=== PATIENT | male | born 1935 | race Caucasian/White ===

== ENCOUNTER 2022-01-28 12:23 | Outpatient (CLI) | payer MEDICARE, SELFPAY | END 2022-01-28 12:24 | disposition home or self-care (01) | LOC: AMB 02-04 10:37 | PROVIDERS: PCP Internal Medicine; Visit Provider Emergency Medicine Emergency Medical Services | DX: S09.90XA Unspecified injury of head, initial encounter (principal); W00.9XXA Unspecified fall due to ice and snow, initial encounter; Y92.414 Local residential or business street as the place of occurrence of the external cause | CPT/HCPCS: A0425; A0427 ==

== ENCOUNTER 2022-01-28 12:47 | Emergency (ER) | payer MEDICARE, SELFPAY ==
--- NOTE | 2022-01-28 12:51 | CRLHL7_ITS ---
For Patients: As a result of the Century Cures Act, medical imaging exams and procedure reports are released immediately into your electronic medical record. You may view this report before your referring provider. If you have questions, please contact your health care provider. INDICATION: Trauma COMPARISON: There are no prior studies for comparison TECHNIQUE: CT examination of the head was performed as axial sections without intravenous contrast. Images were obtained from the vertex of the skull through the skull base. Please note that all CT scans at this facility use dose modulation, iterative reconstruction, and/or weight-based dosing when appropriate to reduce radiation dose to as low as reasonably achievable. FINDINGS: There is cortical and central atrophy. Periventricular white matter disease is noted suggesting small-vessel ischemia. There is intracranial hemorrhage. Most of this is a right frontal region subarachnoid hemorrhage. There is probably a small amount of left frontal subarachnoid hemorrhage as well in the parafalcine location. In the inferior right frontal contusion is noted with a hematoma identified measuring about 15 millimeters from axial image 19. There is developing edema in the inferior right frontal lobe. There is no shift identified. A long linear branching skull fracture is identified. It is not a basilar skull fracture. Involves the right frontal bone and extends superiorly and towards the left, crossing the coronal suture and extending to the left into the temporal bone. There is mild displacement of the fracture in the left temporal region. This is best seen on coronal image 55 were maximum step-off is about 3.5 millimeters. No definite subdural blood There is subcutaneous hematoma in several locations especially on the left. I discussed this case with Dr. Barber at 1:49 p.m. on January 28, 2022 IMPRESSION: 1. There is intracranial hemorrhage. This is primarily a right frontal subarachnoid hemorrhage though there is a small sub component in the left frontal region as well. There is also an inferior frontal intraparenchymal contusion measuring about 15 millimeters with developing edema in the inferior right frontal lobe. There is no shift. 2. Complex skull fracture extending from the right frontal bone superiorly and laterally towards the left extending in the left temporal bone. There is some displacement in the left temporal region with maximum step-off of about 3.4 millimeters. No associated subjacent subdural hematoma or contusion in the region of the maximally displaced skull fracture Please note that all CT scans at this facility use dose modulation, iterative reconstruction, and/or weight-based dosing when appropriate to reduce radiation dose to as low as reasonably achievable. Dictated by Ozzy Andres MD @ 01/28/2022 1:50:16 PM (Electronically Signed)
--- NOTE | 2022-01-28 12:51 | CRLHL7_ITS ---
For Patients: As a result of the Century Cures Act, medical imaging exams and procedure reports are released immediately into your electronic medical record. You may view this report before your referring provider. If you have questions, please contact your health care provider. INDICATION: Trauma COMPARISON: None TECHNIQUE: CT examination of the cervical spine is performed without contrast using spiral technique. Thin axial, sagittal and coronal reconstructions were made. Please note that all CT scans at this facility use dose modulation, iterative reconstruction, and/or weight-based dosing when appropriate to reduce radiation dose to as low as reasonably achievable. FINDINGS: : There is reversal of the cervical curvature which is usually due to muscle spasm, positioning or immobilization device. There are moderate to severe degenerative changes. There is no visible acute fracture, dislocation or destructive process. IMPRESSION: Reversed curvature probably due to muscle spasm. Degenerative changes. No visible acute fracture, dislocation or destructive process. Please note that all CT scans at this facility use dose modulation, iterative reconstruction, and/or weight-based dosing when appropriate to reduce radiation dose to as low as reasonably achievable. Dictated by Ozzy Andres MD @ 01/28/2022 1:52:32 PM (Electronically Signed)
--- NOTE | 2022-01-28 12:52 | ED.GENADULT ---
HPI - General Adult General Chief complaint: Fall/Minor Trauma Stated complaint: Fall Time Seen by Provider: 01/28/22 12:50 History of Present Illness HPI narrative: This 86-year-old male comes in by ambulance because a fall that occurred just prior to arrival. He states that he was out walking his dog and does not remember what happened. He fell and hit the occipital portion of his head and has some bruising and abrasions in this area. He reports some pain in this area but does not have any other report of pain. Ambulance arrived and saw him crawling on the ground some distance from where he fell. He did get up and ambulate and has no sign of neurologic deficit. He does not remember the events around the time of the fall. He arrives with normal neurologic function. He is not on any anticoagulants. Related Data Home Medications Medication Instructions Recorded Confirmed finasteride 5 mg tablet (Proscar) 5 mg PO QDAY 12/08/21 12/08/21 ibuprofen 200 mg capsule 200 mg PO Q6H PRN 12/08/21 12/08/21 minocycline 50 mg capsule 50 mg PO QDAY 12/08/21 12/08/21 tamsulosin 0.4 mg capsule 0.4 mg PO QDAY 12/08/21 12/08/21 vitamins A,C,P-gcxp-qsrzei 2,148 2 tab PO BID 12/08/21 12/08/21 mcg-113 mg-45 mg-17.4 mg tablet (PreserVision AREDS) Previous Rx's Medication Instructions Recorded nirmatrelvir 300 mg (150 mg 3 ea PO QAM AND QPM #30 tabs 12/08/21 x2)-ritonavir 100 mg tablet,dose pack(EUA) (Paxlovid) Allergies Allergy/AdvReac Type Severity Reaction Status Date / Time No Known Drug Allergies Allergy Verified 12/08/21 15:42 Review of Systems Status of ROS: Reports: 10 or more systems reviewed and unremarkable except as noted in History and below Narrative: Constitutional: No fevers, no weight gain or loss. Eyes: No discharge. No vision changes. HENT: No congestion, no sore throat, no ear pain. Pain with bruising and swelling in the left occipital region due to a fall. Cardiovascular: No chest pain, no palpitations. Respiratory: No shortness of breath, no wheezes, no cough. Gastrointestinal: No abdominal pain, no vomiting, no diarrhea. Genitourinary: No dysuria, no hematuria. Musculoskeletal: Normal range of motion. Skin: No rashes, no pruritis. Neurological: No dizziness, weakness, sensory change, speech change. Loss of consciousness related to the recent fall. Endo/Heme/Allergies: No bruising or bleeding. No polydipsia. Pysch: no suicidality, no anxiety, no insomnia. All other systems reviewed and are negative. [facility] Medical History (Updated 01/28/22 @ 14:12 by Rell Dalton MD) Benign prostatic hyperplasia Macular degeneration Skin cancer Surgical History (Updated 01/28/22 @ 13:32 by Marybeth Avalos RN) History of cataract surgery Social History Smoking Status: Former smoker What tobacco products do you use: cigarettes Smoking quit date/years: >15 years ago Do you use any of these nicotine containing products: None Second hand tobacco smoke exposure: No How often do you have a drink containing alcohol: 4 or more times a week How many standard drinks containing alcohol do you have on a typical day: 1 or 2 How often do you have six or more drinks on one occasion: Daily or almost daily AUDIT-C Alcohol total score: 8 Non-prescribed substance use: denies use service: No Exam Narrative: Exam Narrative: Primary Survey: Vital Signs are within normal limits. Airway: Open. Breathing: Easy. Circulation: no obvious bleeding; normal capillary refill. Disability: GCS is 15. Normal pupillary response and motor movements. No facial asymmetry. Tongue is midline. Box Toe Cementer strength is equal bilaterally. No pronator drift. He is able to raise each leg from the bed. Secondary Survey: Exposure: Head: Swelling in the left occipital region of his head. There is small area of erythema but no laceration. Neck: He arrives in a C-collar. No midline tenderness when palpating along the spine. C-collar was removed after C-spine clearance. Chest: Non tender. No external signs of trauma. Abdomen: Non tender. No rebound tenderness. Normal bowel sounds. Pelvis/Genitals: No tenderness to A/P and lateral stress. No blood at the urethral meatus. Extremities: Atraumatic. Back: No midline tenderness. Primary and Secondary surveys are completed. The patient's GCS is 15. Const: Vital Signs, click to edit/add: Vital Signs - 24 hr 01/28/22 13:18 Temperature 96.3 F L Pulse Rate [Left A pical] 64 Respiratory Rate 16 Blood Pressure [Ri ght Upper Arm] 165/80 H Pulse Oximetry 97 Oxygen Delivery Me thod Room Air Course Vital Signs Vital signs: Initial Vital Signs Temperature 96.3 F L 01/28/22 13:18 Temperature Source Temporal Artery Scan 01/28/22 13:18 Pulse Rate 64 01/28/22 13:18 Pulse Rhythm 01/28/22 13:18 Pulse Strength 3+ Normal 01/28/22 13:18 Respiratory Rate 16 01/28/22 13:18 Blood Pressure 165/80 H 01/28/22 13:18 Blood Pressure Mean 108 01/28/22 13:18 Blood Pressure Position Sitting 01/28/22 13:18 Pulse Oximetry 97 01/28/22 13:18 Oxygen Delivery Method 01/28/22 13:18 Vital Signs Temperature 96.3 F L 01/28/22 13:18 Pulse Rate 64 01/28/22 13:18 Respiratory Rate 16 01/28/22 13:18 Blood Pressure 165/80 H 01/28/22 13:18 Pulse Oximetry 97 01/28/22 13:18 Oxygen Delivery Method 01/28/22 13:18 Temperature 96.3 F L 01/28/22 13:18 Pulse Rate 64 01/28/22 13:18 Respiratory Rate 16 01/28/22 13:18 Blood Pressure 165/80 H 01/28/22 13:18 Pulse Oximetry 97 01/28/22 13:18 Oxygen Delivery Method 01/28/22 13:18 Medical Decision Making MDM Narrative Medical decision making narrative: This patient comes in with a injury to his head with loss of consciousness. I was able to evaluate him rather immediately upon arrival. He did not have much complaint except for some tenderness in the occipital region of his head. His neurologic exam is normal. CT imaging of the head and C-spine are acquired. C-spine shows no new findings by my review. CT scan of the head does show a small subarachnoid hemorrhage and a right frontal parenchymal hemorrhage. There is also a skull fracture in the right frontal displaced 3-4 mm, but not depressed. I reexamined the patient at 1330 any continues to have normal neurologic function and is in no acute distress. I spoke with an ER physician at [facility], Dr. Otto, who agreed to his transfer there for further evaluation and treatment. CT images are pushed there. At 1:45 p.m. Arrangements are made for transfer and ambulance is contacted. He received an IV dose of Keppra 500 mg. Time spent in critical care of this patient was 30 minutes. Lab Data Labs: Lab Results 01/28/22 Range/Units 13:44 WBC 7.29 (4.50-11.00) K/uL RBC 4.51 (4.30-5.90) m/uL Hgb 14.3 (13.5-17.5) gm/dL Hct 43.2 (37.0-53.0) % MCV 96 (80-100) fL MCH 32 (26-34) pg MCHC 33 (32-36) gm/dL RDW Coeff of Chas 13.0 (11.5-15.5) % Plt Count 170 (140-440) K/uL Neut % (Auto) 78.9 H (42.0-72.0) % Lymph % (Auto) 15.1 L (20-44) % Norman % (Auto) 4.8 (0.0-11.0) % Eos % (Auto) 0.8 (0.0-7.0) % Baso % (Auto) 0.3 (0.0-3.0) % Neut # (Auto) 5.80 (1.7-7.0) K/uL Lymph # (Auto) 1.10 (0.90-2.90) K/uL Norman # (Auto) 0.30 (0.00-0.90) K/UL Eos # (Auto) 0.06 (0.00-0.50) K/uL Baso # (Auto) 0.02 (0.00-0.30) K/uL Abs Immat Gran (auto) 0.01 (0.00-0.30) K/uL Imaging Data CT scan - head: Radiologist's impression: 1. There is intracranial hemorrhage. This is primarily a right frontal subarachnoid hemorrhage though there is a small sub component in the left frontal region as well. There is also an inferior frontal intraparenchymal contusion measuring about 15 millimeters with developing edema in the inferior right frontal lobe. There is no shift. 2. Complex skull fracture extending from the right frontal bone superiorly and laterally towards the left extending in the left temporal bone. There is some displacement in the left temporal region with maximum step-off of about 3.4 millimeters. No associated subjacent subdural hematoma or contusion in the region of the maximally displaced skull fracture CT Cervical Spine: Radiologist's impression: Reversed curvature probably due to muscle spasm. Degenerative changes. No visible acute fracture, dislocation or destructive process. Critical Care Time Critical Care Time Critical Care Time: Yes Attestation: The patient required my highest level preparedness to intervene emergently and I personally spent this critical care time directly and personally managing the patient. This critical care time included: Obtaining a history; Examining the patient; Pulse oximetry; Ordering and reviewing of studies; Arranging urgent treatment with development of a management plan; Evaluation of patients response to treatment; Frequent reassessment discussions with other providers. This critical care time was performed to assess and manage the high probability of imminent life-threatening deterioration that could result in multiorgan failure. It was exclusive of separate billable procedures and treating other patients and teaching time. Total Critical Care Time in Minutes: 30 Discharge Plan Discharge Clinical Impression: Subarachnoid hemorrhage, Closed skull fracture Prescriptions: No Action Paxlovid (EUA) 300 mg (150 mg x 2)-100 mg tablets,dose pack 3 ea PO QAM AND QPM Qty: 30 0RF PreserVision AREDS 2,148 mcg-113 mg-45 mg-17.4mg tablet 2 tab PO BID Rx Instructions: administer with AM and PM meals finasteride [Proscar] 5 mg tablet 5 mg PO QDAY minocycline 50 mg capsule 50 mg PO QDAY tamsulosin 0.4 mg capsule 0.4 mg PO QDAY ibuprofen 200 mg capsule 200 mg PO Q6H PRN Follow Up/Referrals: Juan Antonio Garber MD [Primary Care Provider] - Stand Alone Forms: Expanite Info Instructions
[2022-01-28 13:05] VITALS: BP 141/78; PULSE 68; RESP 16; O2SAT 100
[2022-01-28 13:10] VITALS: BP 136/99; PULSE 63; RESP 16; O2SAT 100
[2022-01-28 13:18] VITALS: BP 165/80; PULSE 64; RESP 16; TEMP 35.7; O2SAT 97
[2022-01-28 13:20] VITALS: BP 135/87; PULSE 60; RESP 14; O2SAT 100
[2022-01-28 13:54] LABS: Basophils Absolute Auto 0.02 K/uL (0.00-0.30); Basophils Percent Auto 0.3 % (0.0-3.0); Eosinophils Absolute Auto 0.06 K/uL (0.00-0.50); Eosinophils Percent Auto 0.8 % (0.0-7.0); Hematocrit 43.2 % (37.0-53.0); Hemoglobin* 14.3 gm/dL (13.5-17.5); Immature Granulocytes Abs Auto 0.01 K/uL (0.00-0.30); Lymphocytes Percent Auto 15.1 % (20-44); Mean Corpuscular HGB Conc 33 gm/dL (32-36); Mean Corpuscular Hemoglobin 32 pg (26-34); Mean Corpuscular Volume 96 fL (80-100); Monocytes Percent Auto 4.8 % (0.0-11.0); Neutrophils Percent Auto 78.9 % (42.0-72.0); Platelet Count* 170 K/uL (140-440); Red Blood Count 4.51 m/uL (4.30-5.90); White Blood Count* 7.29 K/uL (4.50-11.00)
[2022-01-28 13:55] VITALS: BP 121/65; PULSE 63; RESP 14; O2SAT 99
--- NOTE | 2022-01-28 13:55 | ED.NURSE ---
Face sheet faxed to [facility] per request, CT images pushed to [facility] per request.
[2022-01-28 13:57] LABS: Slide Review Reflex No
[2022-01-28 14:00] VITALS: BP 130/101; PULSE 57; RESP 14; O2SAT 99
--- NOTE | 2022-01-28 14:02 | ED.NURSE ---
Report to GAURANG Da Silva at [facility].
[2022-01-28 14:29] LABS: Chloride* 104 mmol/L (96-114); Potassium* 3.9 mmol/L (3.6-5.1); Sodium* 136 mmol/L (135-149)
[2022-01-28 14:30] LABS: Prothrombin Time 13.6 Seconds
[2022-01-28 14:31] LABS: Creatinine* 0.8 mg/dL (0.5-1.5); Estimated Glomerular Filt Rate 87 ml/min
[2022-01-28 14:32] LABS: Blood Urea Nitrogen* 25 mg/dL (7-30); Calcium* 8.6 mg/dL (8.4-10.6)
[2022-01-28 15:51] LABS: Carbon Dioxide* 28 mmol/L (20-32); Glucose* 112 mg/dL (60-115)
== END 2022-01-28 15:03 | disposition home or self-care (01) ==
PROVIDERS: Emergency Provider Emergency Medicine Emergency Medical Services; PCP Internal Medicine
DX: S06.6X0A Traumatic subarachnoid hemorrhage without loss of consciousness, initial encounter (principal); S02.109A Fracture of base of skull, unspecified side, initial encounter for closed fracture; W19.XXXA Unspecified fall, initial encounter
CPT/HCPCS: 36415; 70450; 72125; 80048; 85025; 85610; 93005; 96365; 99285; 99291; G0390; J1953

== ENCOUNTER 2022-01-28 14:15 | Outpatient (CLI) | payer MEDICARE, SELFPAY | END 2022-01-28 14:16 | disposition home or self-care (01) | LOC: AMB 02-04 11:26 | PROVIDERS: PCP Internal Medicine; Visit Provider Emergency Medicine Emergency Medical Services | DX: S06.5XAS Traumatic subdural hemorrhage with loss of consciousness status unknown, sequela (principal); S02.0XXS Fracture of vault of skull, sequela | CPT/HCPCS: A0425; A0426 ==

== ENCOUNTER 2022-03-03 09:00 | Outpatient (RCR) | payer MEDICARE, SELFPAY | END 2022-04-30 08:37 | disposition home or self-care (01) | PROVIDERS: PCP Internal Medicine; Visit Provider General Practice | DX: S06.9X1S Unspecified intracranial injury with loss of consciousness of 30 minutes or less, sequela (principal); R42 Dizziness and giddiness; Z51.89 Encounter for other specified aftercare | CPT/HCPCS: 97110; 97116; 97162 ==

== ENCOUNTER 2022-03-04 08:18 | Outpatient (CLI) | payer MEDICARE, SELFPAY ==
--- OUTSIDE RECORDS SUMMARY | 2022-03-04 08:23 | XMS_ITS | Encounter Summary ---
:1935 Author Organization [facility] Address [address] [place] [phone] Phone Care Team Providers Name Role Phone Juan Antonio Garber MD Primary Care Provider Encounter Details Date Type Department Care Team Description 02/11/2022 Travel Social History Tobacco Use Types Packs/Day Years Used Date Smoking Tobacco: Former Cigarettes Quit : 1969 Smokeless Tobacco: Never Alcohol Use Standard Drinks/Week Comments Not Currently 0 (1 standard drink = 0.6 oz pure alcoho l) Sex Assigned at Date Recorded Not on file COVID-19 Exposure Response Date Recorded In the last 10 days, have you been in contact with No / Unsu re 02/11/2022 2:03 PM CDT someone who was confirmed or suspected to have Coronavirus/COVID-19? 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
--- OUTSIDE RECORDS SUMMARY | 2022-03-04 08:23 | XMS_ITS | Encounter Summary ---
:1935 Author Organization [facility] Address [address] [place] [phone] Phone Care Team Providers Name Role Phone Juan Antonio Garber MD Primary Care Provider Encounter Details Date Type Department Care Team Description 01/28/2022 Orders Only Unspecified Departme nt Unknown, Provider [place] Social History Tobacco Use Types Packs/Day Years Used Date Smoking Tobacco: Unknown Sex Assigned at Date Recorded Not on file COVID-19 Exposure Response Date Recorded In the last 10 days, have you been in contact with No / Unsu re 02/11/2022 2:03 PM CDT someone who was confirmed or suspected to have Coronavirus/COVID-19? documented as of this encounter Plan of Treatment Not on filedocumented as of this encounter Procedures Procedure Name Priority Date/Time Associated Diagnosis Comme nts TELEMETRY STRIPS 01/28/2022 9:23 PM Resul ts for this CDT procedure are i n the results section. documented in this encounter Results TELEMETRY STRIPS (01/28/2022 9:23 PM CDT) Narrative 01/28/2022 9:23 PM CDT This result has an attachment that is no t available. Ordered by an unspecified provider. 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
--- OUTSIDE RECORDS SUMMARY | 2022-03-04 08:23 | XMS_ITS | Encounter Summary ---
:1935 Author Organization [facility] Address [address] [place] [phone] Phone Care Team Providers Name Role Phone Juan Antonio Garber MD Primary Care Provider Reason for Referral Consult/Test/Treat (Routine) - New Request Specialty Diagnoses / Procedures Referred By Contact Refer red To Contact Physical Therapy / Diagnoses Traumatic brain injury, with loss of consciousness of 30 minutes or less, initial encounter () SAH (subarachnoid hemorrhage) () Jose Guadalupe Feliciano, PATIENT CHOICE PHYSICAL THERAPY DO [address] [place] [address] Referral ID Status Reason Start Date Expiration Date Visits V isits Requested Authorized [id number] New Request 02/11/2022 02/11/2023 1 1 Reason for Visit Reason Comments Referral TBI Consult/Test/Treat (Urgent) - Closed Specialty Diagnoses / Procedures Referred By Contact Refer red To Contact Physical Medicine and Diagnoses SAH (subarachnoid hemorrhage) () Edwin Churchill MD [facility] / PHYSICAL [address] [facility] [address] MEDICINE AND REHAB [employer], [place] [phone] Fax: Referral ID Status Reason Start Date Expiration Date Visits Requ ested Visits Authorized [id number] Closed 01/29/2022 01/29/2023 1 1 Encounter Details Date Type Department Care Team Description 02/11/2022 Office Visit Clinic & Specialty Edwin Churchill MD [address] [facility] [address] [place], [place] [phone] Traumatic brain injury, with loss of con sciousness of 30 minutes or less, initial encounter () (Primary Dx); [facility] Jose Guadalupe Diehl DO [address] [place] [address] SAH (subarachnoid hemorrhage) (); [address] Dizziness; [place], [place] [address] Balance problem due to vesti bular dysfunction, unspecified laterality; [phone] Acute post-trau matic headache, not intractable Social History Tobacco Use Types Packs/Day Years Used Date Smoking Tobacco: Former Cigarettes Quit : 1969 Smokeless Tobacco: Never Tobacco Cessation: Counseling Given: Not Answered Alcohol Use Standard Drinks/Week Comments Not Currently 0 (1 standard drink = 0.6 oz pure alcoho l) Sex Assigned at Date Recorded Not on file COVID-19 Exposure Response Date Recorded In the last 10 days, have you been in contact with No / Unsu re 02/11/2022 2:03 PM CDT someone who was confirmed or suspected to have Coronavirus/COVID-19? documented as of this encounter Last Filed Vital Signs Vital Sign Reading Time Taken Comments Blood Pressure 146/77 02/11/2022 2:14 PM CDT Pulse 81 02/11/2022 2:14 PM CDT Temperature - - Respiratory Rate - - Oxygen Saturation - - Inhaled Oxygen Concentration - - Weight 81 kg (178 lb 9.6 oz) 02/11/2022 2:14 PM CDT Height - - Body Mass Index 23.57 01/28/2022 9:00 PM CDT documented in this encounter Patient Instructions Patient InstructionsAmeya Loomis MD - 02/11/2022 2:30 PM CDT You were seen in TBI Clinic for evaluation of recent traumatic brain injury. The following recommendations were made for you today: Physical therapy referral to address balance and return to activity exercises. Ok to begin light aerobic activities such as walking. Ok to fly to [place] Follow up as needed if symptoms do not improve or worsen. documented in this encounter Progress Notes Jose Guadalupe Diehl, DO - 02/11/2022 2:30 PM CDT [facility] Carter Oropeza : 1935 Sex: male Medical Decision Making: ASSESSMENT: Carter Oropeza is 86 y.o. 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 PLAN: Mild complicated Traumatic brain injury. The pathophysiology and prognosis of the traumatic brain injury were explained to patient. Patient was educated regarding energy conservation, recurrent risk oftraumatic brain injury and return to baseline activities. Problems with mental and physical exertionwere explained. The patient was told to stay away from alcohol and other illicit drugs. Posttraumatic headache (Episodic tension subtype): Recommend continuing Tylenol PRN and weaning as able. Currently taking 1000 mg QHS and 825 mg Q 06:00AM, Provided education regarding risk of rebound headache with [id number] medication. 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 Activity restrictions: Patient was concerned about flying as a passenger with commercial air. No pneumocephalus noted on initial head CT. Safe to travel via air discussed symptoms to monitor for while in flight. 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 Patient was educated on to gradual increase in activities as tolerated. PT forhome exercise program and activity guidance. Return to clinic: No follow up scheduled. Return to clinic in approximately 3 months or after completion of PT if symptoms do not improve or worsen. After discussion with the patient the above treatment plan w as decided through shared clinical decision making. Reason for visit This patient is seen at the request of Dr. Churchill for evaluation for traumatic brain injury. HISTORY OF PRESENT ILLNESS: This is an initial clinic visit for this 86 y.o. male with a past medical history of BPH and leiomyosarcoma status postresection for evaluation of their traumatic brain injury. The patient chart and care everywhere were reviewed including ED visit notes from 01/28/2022, admission records and discharge summary on 01/30/2022. Carter Oropeza sustained a head injury on 01/28/2022 after slipping on ice. He was walking his dogalone but neighbors witnessed his fall and noted a brief loss of consciousness. Patient does not remember the fall but does remember walking into neighbors apartment to call and ambulance. He was brought to the ED in [place] where a Head CT was obtained noting ICH and he was transported to [facility].he was noted to have a GCS of 15 and exam findings showed a left posterior scalp abrasion and contusion. Repeat head CT obtained noted a mild interval increase in bifrontal and right temporal subarachnoid hemorrhage and right frontal contusion. Stable thin epidural hematoma at the vertex. No mass effect. Additionally he was found to have stable alignment of bilateral frontal bone and left parietal fracture, with mild comminution disc and depression of the left parietal fragments. Follow up Head CT was stable. 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 He was admitted for further observation and started on a 7-day course of Keppra for seizure prophylaxis. He was seen by OT on 01/29 and noted to have a MoCA of 26/30 with good insight into his current condition. He was discharged on 01/30 to home with his spouse. Today the patient was interviewed with his Jaimie. He overall reports doing very well since his hospitalization. He continues to have periodic dizziness and unsteady gait that worsens with dramatic postural changes. He is currently using his 's cane to assist with ambulation and notes he leans towards the left while walking and brushing his teeth. From a mobility standpoint he has not pushed himself given fear of falling again. denies any cognitive changes, he denies any incontinence. He additionally notes ongoing headaches. Worse at night while lying flat. Localized to front of headin band like distribution with periodic muscle twitches of the facial muscle. Overall this is improving with time out from the injury, he is currently taking Tylenol 1000 mg QHS and waking up at 6:00in anticipation of headache and taking 825 mg and falling back asleep. He reliably states that this medication regimen is mostly due to headache anticipation rather than perception of actual pain during this time. Mechanism of Injury: fall Injury Date: 01/28/2022 LOC: Yes - Duration: brief Amnestic to Events: Yes Evaluated at: [facility] GCS at ED/Admission: 15 Brought in by: ambulance Imaging: CT of head - Yes - See below Other injuries: Bilateral frontal fracture extending to L parietal bone Hospital Course Consults: OT, PT, OVEN OPERATOR AUTOMATIC, Neurosurgery, Orthopaedics Date of discharge: 01/30/2022 Discharged to: Home Neurobehavioral Symptom Inventory Please rate the following symptoms with regard to how much they have disturbed you IN THE LAST 2 WEEKS The purpose of this is to track symptoms over time, please do not attempt to score. 0 = Rarely if ever present; not a problem at all 1 = Mild - Occasionally present, but it does not disrupt my activities; I can usually continue what I'm doing; doesn't really concern me. 2 = Moderate - Often present, occasionally disrupts my activities; I can usually continue what I'm doing with some effort; I feel somewhat concerned 3 = Severe - Frequently present and disrupts activities; I can only do things that are fairly simpleor take little effort; I feel I need help. 4 = Very Severe - almost always present and I have been unable to perform at work, school or home due to this problem; I probably cannot function without help. Preexisting = this problem was present before my injury on Symptoms Pre-existing 0 Not at all 1 Mild 2 Moderate 3 Severe 4 Very severe Feeling Dizzy [] [] [x] [] [] [] Loss of balance [] [] [x] [] [] [] Poor coordination, clumsy [] [x] [] [] [] [] Headaches [] [x] [] [] [] [] Nausea [] [x] [] [] [] [] Vision problems, blurring, trouble seeing [] [x] [] [] [] [] Sensitivity to light [x] [] [] [] [] [] Hearing difficulty [] [x] [] [] [] [] Sensitivity to noise [] [x] [] [] [] [] Numbness or tingling on parts of my body [] [x] [] [] [] [] Change in taste and/or smell [] [x] [] [] [] [] Loss of appetite or increased appetite [] [x] [] [] [] [] Poor concentration, can't pay attention, easily distracted [] [] [x] [] [] [] Forgetfulness, can't remember things [] [x] [] [] [] [] Difficulty making decisions [] [x] [] [] [] [] Slowed thinking, difficulty getting organized, can't finish things [] [x] [] [] [] [] Fatigue, loss of energy, getting tired easily [] [] [x] [] [] [] Difficulty falling or staying asleep [] [x] [] [] [] [] Feeling anxious or tense [] [x] [] [] [] [] Feeling depressed or sad [] [x] [] [] [] [] Irritability, easily annoyed [] [x] [] [] [] [] Poor frustration tolerance, feeling easily overwhelmed by things [] [x] [] [] [] [] (adapted from CARLA Limon: J Head Tr Rehabil 1995; 10(3):1-17) PAST MEDICAL HISTORY: Reviewed active problem list and medication list for accuracy, see below. Patient Active Problem List Diagnosis SAH (subarachnoid hemorrhage) () TBI (traumatic brain injury) Current Outpatient Medications Medication Sig Dispense Refill acetaminophen 325 mg oral tablet Take 3 tablets (975 mg) by mouth every 6 hours as needed for Mild Pain. 1000 tablet 0 senna (SENOKOT) 8.6 mg oral tablet Take 1 tablet (8.6 mg) by mouth twice daily. 30 tablet 0 minocycline (MINOCIN) 50 mg oral capsule Take 1 capsule (50 mg) by mouth daily. tamsulosin (FLOMAX) 0.4 mg oral capsule Take 1 capsule (0.4 mg) by mouth daily. finasteride (PROSCAR) 5 mg oral TABS Take 1 tablet (5 mg) by mouth daily. No current facility-administered medications for this visit. ALLERGIES: Allergies Allergen Reactions Caffeine Other (see comments) Jittery FAMILY HISTORY: Assessed and noncontributory. SOCIAL HISTORY: The patient is their own decision maker. 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 Supportive: Yes Exercise: Walks Driving: Not since accident Smoking: No EtOH: Not , since injury Drugs: None MPAI4- Current Encounter No data found in the last 1 encounters. REVIEW OF SYSTEMS: A total of 10 systems is reviewed. Pertinent positives are in the history of present illness. All other systems are otherwise negative. PHYSICAL EXAMINATION: BP 146/77 Pulse 81 Wt 81 kg (178 lb 9.6 oz) BMI 23.57 kg/m?? General: The patient is a well-nourished, well groomed male who appears stated age. HEAD: Normocephalic, atraumatic EYE: -Appearance: Sclera nonicteric, PERRLA -Pupil position: No tropia/phoria -Eye movements: EOMI, no resting nystagmus VOMS: -Smooth Pursuits (horizontal and vertical x2 each) normal, loss of smooth pursuits noted when standing -Saccades (horizontal and vertical x10 each) normal -Convergence (repeat x3) normal (greater than >5 cm abnormal) - Vestibular-Ocular Reflex: --rVOR (Head Impulse, horizontal and Vertical): normal --tVOR (Head Heave): normal ENT: no rhinorrhea, MMM Lung: breathing unlabored in room air Skin: skin turgor is normal. Extremity: no edema noted in extremities. Neurologic: -Cognition: Overall, fund of knowledge, insight, and judgment are adequate. Speech is fluent and articulate. Cognitive screen: SLUMS Is the patient alert?: Yes Level of education: High School Education What day of the week is it?: 1 What is the year?: 1 What state are we in?: 1 How much did you spend?: 1 How much do you have left?: 2 Name as many animals as you can in one minute.: 3 (15+ animals) What were the five objects I asked you to remember?: 4 Series of numbers backwards (87):: 0 Series of numbers backwards (649):: 1 Series of numbers backwards (6437):: 1 Hour markers okay?: 2 Time correct?: 2 [address] an X in the triangle.: 1 Which of the figures is the largest?: 1 What was the female's name?: 2 What work did she do?: 2 When did she go back to work?: 2 What state did she live in?: 2 Total Score:: 29 [facility] Mental Status Examination ([facility]) High School Education / Less than High School Education 27-30 Normal 25-30 21-26 Mild Neurocognitive Disorder 20-24 1-20 Dementia 1-19 -Cranial nerves: Smell intact to coffee; II, III, IV, as above; V1-3 intact to light touch bilaterally, face appears symmetrical, hearing intact to voice, palate elevates symmetrically, shoulder shrug equal, no tongue deviation upon protrusion -MS: All limbs move greater than antigravity -Sens: No complaints of dysesthesia or paresthesia -Coor: No dysmetria noted. Positive Romberg -Gait: leftward tilt with decreased arm swing to maintain balance that worsens with walking on toes,walking on heels, and heel-to-toe Musculoskeletal: range of motion of cervical spine within normal limits. No Tenderness in suboccipital muscles, cervical paraspinal muscles, temporalis muscles, frontalis muscles, TMJ area. Tinel's sign for Occipital neuralgia was negative. Imaging CT HEAD 01/28/2022 Impression: 1. Mild interval increase in bifrontal and right temporal subarachnoid hemorrhage and right frontal contusion. Stable thin epidural hematoma at the vertex. No mass effect. 2. Stable alignment of bilateral frontal bone and left parietal fracture, with mild comminution disc and depression of the left parietal fragments. 3.Fracture crosses the midline along the superior sagittal sinus. Consider follow-up CT venogram. CT HEAD 01/29/2022 Impression: The head CT has not substantially changed. Small epidural hemorrhage of the paramedian vertex, small amount of subarachnoid change in the supratentorial compartment, and hemorrhagic contusion in the right supraorbital frontal lobe. Stable skull fracture. CT VENOGRAM 01/29/2022 Impression: 1. Stable size of the vertex epidural hematoma. 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 2. Stable bifrontal convexity subarachnoid hemorrhage and right frontal hemorrhagic contusion. 3. Stable calvarial fracture. 4. No evidence of venous sinus thrombosis. * I have seen and discussed the patient with my attending Dr. Diehl, who agrees with the above assessment and plan. Ameya Loomis MD PGY-4 Physical Medicine and Rehabilitation FACULTY NOTE I saw and evaluated the patient on 02/11/2022. I discussed with the resident and agree with the resident???s findings and plan documented in the resident???s note from above. Any revisions by me are documented. Jose Guadalupe Diehl DO, 02/12/2022 7:42 AM documented in this encounter Plan of Treatment Scheduled Referrals Name Type Priority Associated Diagnoses Order S chedule REFERRAL TO PHYSICAL Referral Routine Traumatic brain inju ry, Ordered: 02/11/2022 THERAPY with loss of consciousness of 30 minutes or less, initial encounte r () SAH (subarachnoid hemorrhage) () Dizziness documented as of this encounter Visit Diagnoses Diagnosis Traumatic brain injury, with loss of con sciousness of 30 minutes or less, initial encounter () - Primary SAH (subarachnoid hemorrhage) () Subarachnoid hemorrhage Dizziness Dizziness and giddiness Balance problem due to vestibular dysfun ction, unspecified laterality Acute post-traumatic headache, not intra ctable Acute post-traumatic headache documented in this encounter Care Teams Copy Supervisor Relationship Specialty Start Date End Date Juan Antonio Garber MD PCP - General Internal Medicine 01/28/[address] [place] [phone] documented as of this encounter
--- OUTSIDE RECORDS SUMMARY | 2022-03-04 08:23 | XMS_ITS | Encounter Summary ---
:1935 Author Organization [facility] Address [address] [place] [phone] Phone Care Team Providers Name Role Phone Juan Antonio Garber MD Primary Care Provider Encounter Details Date Type Department Care Team Description 01/29/2022 Orders Only Unspecified Departme nt Unknown, Provider [...] Date/Time Associated Diagnosis Comme nts TELEMETRY STRIPS 01/29/2022 2:00 AM Resul ts for this CDT procedure are i n the results section. documented in this encounter Results TELEMETRY STRIPS (01/29/2022 2:00 AM CDT) Narrative 01/29/2022 2:00 AM CDT This result has an attachment that is no t available. Ordered by an unspecified provider. Provider Unknown ECHO documented in this encounter Visit Diagnoses Not on filedocumented in this encounter Care Teams Cordage Sales Representative Relationship Specialty Start Date End Date Juan Antonio Garber MD PCP - General Internal Medicine 01/28/[address] [place] [phone] documented as of this encounter
--- OUTSIDE RECORDS SUMMARY | 2022-03-04 08:23 | XMS_ITS | Encounter Summary ---
:1935 Author Organization [facility] Address [address] [place] [phone] Phone Care Team Providers Name Role Phone [...] Associated Diagnosis Comme nts TELEMETRY STRIPS 01/29/2022 8:34 AM Resul ts for this CDT procedure are i n the results section. documented in this encounter Results TELEMETRY STRIPS (01/29/2022 8:34 AM CDT) Narrative 01/29/2022 8:34 AM CDT This result has an attachment that is no t available. Ordered by an unspecified provider. Provider Unknown ECHO documented in this encounter Visit Diagnoses Not on filedocumented in this encounter Care Teams Refining Still Operator Relationship Specialty Start Date End Date Juan Antonio Garber MD PCP - General Internal Medicine 01/28/[address] [place] [phone] documented as of this encounter
--- OUTSIDE RECORDS SUMMARY | 2022-03-04 08:23 | XMS_ITS | Encounter Summary ---
:1935 Author Organization [facility] Address [address] [place], [place] [address] [address] Phone Care Team Providers Name Role Phone Juan Antonio Garber MD Primary Care Provider Encounter Details Date Type Department Care Team Description 01/28/2022 Orders Only [facility] [place], Outside Referral of patient [facility] OUTSIDE PROVIDER (Primary Dx) [place], [place] Radiology Department [id number] [address] [facility] [address] Social History Tobacco Use Types Packs/Day Years [...] filedocumented as of this encounter Visit Diagnoses Diagnosis Referral of patient - Primary Referral of patient without examination or treatment documented in this encounter Care Teams Regional Sales Coordinator Relationship Specialty Start Date End Date Juan Antonio Garber MD PCP - General Internal Medicine 01/28/[address] [place] [phone] documented as of this encounter
--- OUTSIDE RECORDS SUMMARY | 2022-03-04 08:23 | XMS_ITS | Encounter Summary ---
:1935 Author Organization [facility] Address [address] [place] [phone] Phone Care Team Providers Name Role Phone Juan Antonio Garber MD Primary Care Provider Encounter Details Date Type Department Care Team Description 01/28/2022 Travel Social History Tobacco Use Types Packs/Day Years Used Date Smoking Tobacco: Unknown Sex Assigned at Date Recorded Not on file COVID-19 Exposure Response Date Recorded In the last 10 days, have you been in contact with No / Unsu re 01/28/2022 7:55 PM CDT someone who was confirmed or suspected to have Coronavirus/COVID-19? documented as of this encounter Plan of Treatment Not on filedocumented as of this encounter Visit Diagnoses Not on filedocumented in this encounter Care Teams Boom Man Relationship Specialty Start Date End Date Juan Antonio Garber MD PCP - General Internal Medicine 01/28/[address] [place] [address] [phone] documented as of this encounter
--- OUTSIDE RECORDS SUMMARY | 2022-03-04 08:23 | XMS_ITS | Clinical Summary ---
:1935 Author Organization [facility] Address [address] [place], [place] [address] [place] [address] Phone Care Team Providers Name Role Phone Juan Antonio Garber MD Primary Care Provider Source Comments [employer] is fully rolled out on [employer]uc[employer]. Last update 09/14/08.[facility] Allergies Active Allergy Reactions Severity Noted Date Comments Caffeine Other (see comments) 01/28/2022 Alber moralez Medications Be aware that medications may not be up to date as of this document. Always verify current medications with patient. Medication Sig Dispensed Refills Start Date End Date Status minocycline (MINOCIN) Take 1 capsule 0 Active 50 mg oral capsule (50 mg) by mouth daily. tamsulosin (FLOMAX) Take 1 capsule 0 Active 0.4 mg oral capsule (0.4 mg) by mouth daily. finasteride (PROSCAR) Take 1 tablet 0 Active 5 mg oral TABS (5 mg) by mouth daily. acetaminophen 325 mg Take 3 tablets 1000 tablet 0 01/29/2022 Active oral tablet (975 mg) by mouth every 6 hours as needed for Mild Pain. senna (SENOKOT) 8.6 Take 1 tablet 30 tablet 0 01/29/2022 Active mg oral tablet (8.6 mg) by mouth twice daily. levETIRAcetam Take 1 tablet 13 tablet 0 01/29/2022 02/05/2022 (KEPPRA) 1000 mg oral (1,000 mg) by TABSIndications: TBI mouth twice and possible seizure daily for 13 doses. 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 SAH (subarachnoid hemorrhage) 01/28/2022 Encounters Date Type Specialty Care Team Description 02/11/2022 Office Visit Traumatic Brain Edwin Churchill MD Traumatic brain injury, with loss of con sciousness of 30 minutes or less, initial encounter () (Primary Dx); Injury Puderbaugh, SAH (subarachno id hemorrhage) (); Jose Guadalupe Araujo DO Dizziness; Balance problem due to vestibular dysfunction, unspecified laterality; Acute post-trau matic headache, not intractable 02/11/2022 Travel 01/29/2022 Orders Only Unknown, Provider 01/29/2022 Orders Only Unknown, Provider 01/28/2022 - Hospital Encounter SURGERY Hudson Mehta, SAH (s ubarachnoid 01/30/2022 MD hemorrhage) () Edwin Churchill MD Stahler, Paul A, MD 01/28/2022 Orders Only Unknown, Provider 01/28/2022 Travel 01/28/2022 Orders Only RADIOLOGY Provider, Referral of jaimie chapman Outside (Primary Dx) from Last 3 Months Immunizations Name Administration Dates Next Due COVID-19 MRNA Vaccine 09/02/2021, 01/21/2021, 06/15/2020, (Pfizer/COMIRNATY) suspension 05/25/2020 Social History Tobacco Use Types Packs/Day Years Used Date Smoking Tobacco: Former Cigarettes Quit : 1970 Smokeless Tobacco: Never Tobacco Cessation: Counseling Given: [...] was confirmed or suspected to have Coronavirus/COVID-19? Last Filed Vital Signs Vital Sign Reading Time Taken Comments Blood Pressure 146/77 02/11/2022 2:14 PM CDT Pulse 81 02/11/2022 2:14 PM CDT Temperature 36.1 ??C (97 ??F) 01/30/2022 11:06 AM CDT Respiratory Rate 16 01/30/2022 11:06 AM CDT Oxygen Saturation 93% 01/30/2022 11:06 AM CDT Inhaled Oxygen Concentration - - Weight 81 kg (178 lb 9.6 oz) 02/11/2022 2:14 PM CDT Height 185.4 cm (6' 0.99) 01/28/2022 9:00 PM CDT Body Mass Index 23.57 01/28/2022 9:00 PM CDT Plan of Treatment Health Maintenance Due Date Last Done Comments Dental Oral Exam 1935 Dental Prophylaxis 1935 Dental X-Ray: Bitewings 1935 Periodontal Maintenance 08/24/1951 Medicare Annual Wellness 08/24/1955 HEALTH MAINTENANCE PROTOCOL 1956 Osteoporosis Screening 2002 (Dexa Scan) PREVENTATIVE VISIT 04/25/2008 04/25/2007, 04/21/2006, 03/25/2005 COVID-19 Vaccine (5 - 10/28/2021 09/02/2021, 01/21/2021, Booster for Pfizer series) 06/15/2020, Additiona l history exists INFLUENZA VACCINE 12/11/2021 06/07/2019, 01/07/2017, 01/03/2016, Additional history exists TD/TDAP ADULTS 04/17/2031 04/17/2021, 09/26/2010, 03/26/2004 PNEUMOCOCCAL IMMUNIZATION > Completed 10/31/2007 67 YRS HIB Aged Out No longer eligib le based on patient 's age to complete this topic HPV Aged Out No longer eligib le based on patient 's age to complete this topic Procedures Procedure Name Priority Date/Time Associated Comments Diagnosis PHOSPHORUS Routine 01/30/2022 5:33 AM Results f or this CDT procedure are i n the results section. MAGNESIUM Routine 01/30/2022 5:33 AM Results f or this CDT procedure are i n the results section. PANEL BASIC METABOLIC Routine 01/30/2022 5:33 AM Results for this (BMP) CDT procedure are i n the results section. TC LAB BLOOD DRAW BY Routine 01/30/2022 5:33 AM R esults for this VENIPUNCTURE CDT procedure are i n the results section. TELEMETRY STRIPS 01/29/2022 8:34 AM Resul ts for this CDT procedure are i n the results section. CT HEAD - Timed 01/29/2022 8:30 AM Results f or this VENOGRAM-W/IV CON CDT procedure are in the results section. TELEMETRY STRIPS 01/29/2022 2:00 AM Resul ts for this CDT procedure are i n the results section. CT HEAD NO IV CONTRAST Timed 01/29/2022 1:32 AM Results for this CDT procedure are i n the results section. TELEMETRY STRIPS 01/28/2022 9:23 PM Resul ts for this CDT procedure are i n the results section. CT HEAD NO IV CONTRAST Timed 01/28/2022 7:37 PM Results for this CDT procedure are i n the results section. PC TROPONIN Timed 01/28/2022 7:30 PM Results f or this QUANTITATIVE CDT procedure are i n the results section. COVID-19 SURVEILLANCE STAT 01/28/2022 7:30 PM Results for this CDT procedure are i n the results section. XR TIB FIB RIGHT 2 V Routine 01/28/2022 7:16 PM R esults for this AP + LAT* CDT procedure are i n the results section. ED EKG (12-LEAD) Routine 01/28/2022 4:53 PM Resul ts for this CDT procedure are i n the results section. XR PELVIS AP* Routine 01/28/2022 4:09 PM Results for this CDT procedure are i n the results section. XR CHEST 2 VIEWS PA + Routine 01/28/2022 4:09 PM Results for this LAT* CDT procedure are i n the results section. ED US FAST-TRAUMA STAT 01/28/2022 3:49 PM Resu lts for this CDT procedure are i n the results section. CT OUTSIDE READ SPINE Routine 01/28/2022 3:48 PM Results for this CERVICAL/NECK CDT procedure are in the results section. CT OUTSIDE READ Routine 01/28/2022 3:48 PM Result s for this HEAD/FACIAL BONES CDT procedure are in the results section. PC TROPONIN STAT 01/28/2022 3:47 PM Results f or this QUANTITATIVE CDT procedure are i n the results section. PRECAUTIONARY TUBE STAT 01/28/2022 3:47 PM Res ults for this CDT procedure are i n the results section. PC LAB CBC W/DIFF & STAT 01/28/2022 3:47 PM Re sults for this PLT CDT procedure are i n the results section. PC ELECTROLYTES PANEL STAT 01/28/2022 3:47 PM Results for this CDT procedure are i n the results section. EXTRA TUBE - SST Routine 01/28/2022 3:36 PM Resul ts for this CDT procedure are i n the results section. EXTRA TUBE - LIGHT Routine 01/28/2022 3:36 PM Res ults for this GREEN CDT procedure are i n the results section. EXTRA TUBE - DARK Routine 01/28/2022 3:36 PM Resu lts for this GREEN CDT procedure are i n the results section. TC LAB BLOOD DRAW BY Routine 01/28/2022 3:36 PM R esults for this VENIPUNCTURE CDT procedure are i n the results section. from Last 3 Months Results PHOSPHORUS (01/30/2022 5:33 AM CDT) athologist Signature Phosphorus 2.6 2.5 - 4.5 [facility] mg/dL Specimen Anatomical Collection Method Collection Time Receive d Time (Source) Location / / Volume Laterality Blood 01/30/2022 5:33 AM 5:57 CDT AM CDT Chucho Britt APRN, CNP LABORATORY Performing Organization Address City/State/ZIP Code Phon e Number [facility] [place] [address] (ABNORMAL) PANEL BASIC METABOLIC (BMP) (01/30/2022 5:33 AM CDT) athologist Signature Sodium 136 135 - 148 [facility] mEq/L Potassium 3.9 3.5 - 5.3 [facility] mEq/L Chloride 106 92 - 108 [facility] mEq/L CO2 24 22 - 30 [facility] mEq/L Glucose 122 (H) 70 - 100 [facility] mg/dL BUN 16 8 - 23 [facility] mg/dL Creatinine 0.97 0.70 - 1.25 [facility] mg/dL Calcium 8.2 (L) 8.8 - 10.2 [facility] mg/dL AnGap 6 (L) 8 - 16 [facility] mEq/L eGFR, High 83 >=60 [facility] ml/min/1.73 m2 Comment: Calculated using CKD-EPI equati on eGFR, Low 71 >=60 ml/min/1.73m2 [facility] Comment: Calculated using CKD-EPI equati on Specimen Anatomical Collection Method Collection Time Receive d Time (Source) Location / / Volume Laterality Blood 01/30/2022 5:33 AM 2 5:57 CDT AM CDT Chucho Britt APRN, CNP LABORATORY Performing Organization Address [facility]/ZIP Code Phon e Number [facility] [place] [address] MAGNESIUM (01/30/2022 5:33 AM CDT) athologist Signature Magnesium 2.1 1.6 - 2.4 [facility] mg/dL Specimen Anatomical Collection Method Collection Time Receive d Time (Source) Location / / Volume Laterality Blood 01/30/2022 5:33 AM 2 5:57 CDT AM CDT Chucho Britt APRN, CNP LABORATORY Performing Organization Address City/[facility] Code Phon e Number [facility] [place] [address] (ABNORMAL) CBC WITH PLATELET (01/30/2022 5:33 AM CDT) athologist Signature WBC 7.41 4.00 - [facility] 10.00 k/cmm RBC 4.05 (L) 4.60 - 6.00 [facility] m/cmm Hgb 13.1 13.1 - 17.5 [facility] g/dL Hematocrit 38.1 (L) 40.0 - 51.0 [facility] % MCV 94.1 80.0 - [facility] 100.0 fL MCH 32.3 (H) 25.0 - 32.0 [facility] pg MCHC 34.4 31.0 - 36.0 [facility] g/dL RDW 12.9 11.5 - 14.5 [facility] % Plt 158 150 - 400 [facility] k/cmm MPV 10.4 6.5 - 12.5 [facility] fL Specimen Anatomical Collection Method Collection Time Receive d Time (Source) Location / / Volume Laterality Blood 01/30/2022 5:33 AM 2 5:58 CDT AM CDT Chucho A Lorenza STARKS CNP LABORATORY Performing Organization Address City/State/ZIP Code Phon e Number [facility] [place] [address] [place] [address] TELEMETRY STRIPS (01/29/2022 8:34 AM CDT)Only the most recent of3 resultswithin the time period is included. Narrative 01/29/2022 8:34 AM CDT This result has an attachment that is no t available. Ordered by an unspecified provider. Provider Unknown ECHO CT HEAD - VENOGRAM-W/IV CON (01/29/2022 8:30 AM CDT) Anatomical Region Laterality Modality Skull Computed Tomography Specimen (Source) Anatomical Collection Method Collection Time Re ceived Time Location / / Volume Laterality 01/29/2022 8:24 AM CDT Impressions 01/29/2022 12:01 PM CDT Impression: 1. Stable size of the vertex epidural he matoma. 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 2. Stable bifrontal convexity subarachno id hemorrhage and right frontal hemorrhagic contusion. 3. Stable calvarial fracture. 4. No evidence of venous sinus thrombosi s. I have personally reviewed the image(s) and initial interpretation, and I agree with the findings as documented by the resident/fellow. Reading Radiologist: Edwin Mosher Resident: Anna Beckford Narrative 01/29/2022 12:[address] Venogram of the Head with intravenous contrast Image Postprocessing by the Radiologist Indication: ??Head trauma, intracranial venous injury suspected ??. Comparison: ??Same day CT, CT 01/28/2022 Technique: Head CT: Noncontrast thin section CT lacey ges were obtained from the skull base through the vertex and reviewed in brain, bone and subdural windows. CTV Head: Following intravenous bolus in jection of nonionic iodinated contrast medium and a delay of approximately 20-25 seconds, axial ??CT imaging with 1 mm collimation was obtained through the brain. Image data were sent to the [employer] orkstation and postprocessed by the radiologist using maximum intensity pixel (MIP), multiplanar and volume rendered 3D reconstruction programs. DOSE: ?Total DLP = 1842.7 mGy.cm. ?? Findings: On the noncontrast images of the head, t here is frontal convexity subarachnoid hemorrhage and right frontal lobe hemorrhagic contusion, overall stable from prior CT. Small vertex epidural hematoma uncha nged size from prior with mild mass effe ct along the sagittal sinus (coronal venogram image 47, series 511 image 5). The ventricles are not enlarged. Otto- white matter differentiation of both cerebral h emispheres is overall preserved. Again v isualized calvarium fracture along the frontal and left parietal bones Head CTV demonstrates focal filling defe cts along the sagittal sinus (coronal venogram images 41, 52, 60, 70, and 72, sagittal venogram images 30 and 31), favored to represent arachnoid granulations. No definite evidence of venous sinus throm bosis. No complete occlusion or definite evidence of thrombus within the major intracranial dural venous sinuses and the major superficial and deep cerebral veins. The major intracranial arteries are joshua sly patent without evidence of aneurysm or stenosis. Procedure Note Edwin Mosher MD - 01/29/2022Formattin g of this note might be different from the original. CT Venogram of the Head with intravenous contrast Image Postprocessing by the Radiologist Indication: Head trauma, intracranial ve nous injury suspected . Comparison: Same day CT, CT 01/28/2022 Technique: Head CT: Noncontrast thin section CT lacey ges were obtained from the skull base through the vertex and reviewed in brain, bone and subdural windows. CTV Head: Following intravenous bolus in jection of nonionic iodinated contrast medium and a delay of approximately 20-25 seconds, axial CT imaging with 1 mm collimation was obtained through the brain. Image data were sent to the [employer] workstation a nd postprocessed by the radiologist using maximum intensity pixel (MIP), multiplanar and volume rendered 3D reconstruction programs. DOSE: Total DLP = 1842.7 mGy.cm. Findings: On the noncontrast images of the head, t here is frontal convexity subarachnoid hemorrhage and right frontal lobe hemorrhagic contusion, overall stable from prior CT. Small vertex epidural hematoma unchanged size from prior with mild mass effect al shahzad the sagittal sinus (coronal venogram image 47, series 511 image 5). The ventricles are not enlarged. Otto-white matter differentiation of both cerebral hemispheres is overall preserved. Again visualized calvarium fr acture along the frontal and left parietal bones Head CTV demonstrates focal filling defe cts along the sagittal sinus (coronal venogram images 41, 52, 60, 70, and 72, sagittal venogram images 30 and 31), favored to represent arachnoid granulations. No definite evidence of venous sinus thrombosis. No complete occlusion or definite evidence of thrombus within the major intracranial dural venous sinuses and the major superficial and deep cerebral veins. The major intracranial arteries are joshua sly patent without evidence of aneurysm or stenosis. IMPRESSION Impression: 1. Stable size of the vertex epidural he matoma. 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 2. Stable bifrontal convexity subarachno id hemorrhage and right frontal hemorrhagic contusion. 3. Stable calvarial fracture. 4. No evidence of venous sinus thrombosi s. I have personally reviewed the image(s) and initial interpretation, and I agree with the findings as documented by the resident/fellow. Reading Radiologist: Edwin Mosher Resident: Anna Beckford Edwin Churchill MD CT NEURO CT HEAD NO IV CONTRAST (01/29/2022 1:32 AM CDT)Only the most recent of2 results within the time period is included. Anatomical Region Laterality Modality Skull Computed Tomography Specimen (Source) Anatomical Collection Method Collection Time Re ceived Time Location / / Volume Laterality 01/29/2022 2:36 AM CDT Impressions 01/29/2022 12:10 PM CDT Impression: The head CT has not substantially change d. Small epidural hemorrhage of the paramed yonas vertex, small amount of subarachnoid change in the supratentorial compartment, and hemorrhagic contusion in the right supraorbital frontal lobe. Stable skull fracture. I have personally reviewed the image(s) and initial interpretation, and I agree with the findings as documented by the resident/fellow. Reading Radiologist: Piyush Santoyo Resident: Andrew Jerry 01/29/2022 12:10 PM CDT Exam: Head CT without contrast, 01/29/2022 Indication: Interval follow-up. Comparison: Head CT examinations from (most recently from approximately 6 hours earlier). Technique: Thin-section CT images throug h the brain were obtained from the base of the skull through the vertex without intravenous contrast, reconstructed in axial, coronal, and sagittal planes, and reviewed in brain, bone and subdural windows. Radiation dose: Total DLP = 1173.6 mGy*c m. ?? Findings: Stable appearance of subarachn oid hemorrhage about the anterior frontal lobes and anterior right temporal lobe. Similar appearance of the hemorrhagic contusion in the supraorbital right fronta l lobe with associated edema. Similar vo lume and maximal thickness of epidural hemorrhage superficial to the middle third of the superior sagittal sinus; this measures 5 mm in thickness. Small amount of layering hemorrhage in the occipital ho rns of the ventricles. There is suggestion of a small hygroma along the right frontal convexity, stable to perhaps slightly increased in size. No midline shift. S table size of the ventricles; no hydroce phalus. The basal cisterns are patent. No acute appearing loss of the otto-white differentiation. Fracture of the right frontal bone exten ding into the left parietal bone; there is mild comminution of the left parietal bone. Small chronic deformity of the right medial orbital wall. Unchanged right m axillary sinus opacification. Mastoid ai r cells are clear. Soft tissue swelling of the scalp overlying the fracture. Procedure Note Piyush Santoyo, DO - 01/29/2022Form atting of this note might be different from the original. Exam: Head CT without contrast, 01/30/20 Indication: Interval follow-up. Comparison: Head CT examinations from (most recently from approximately 6 hours earlier). Technique: Thin-section CT images throug h the brain were obtained from the base of the skull through the vertex without intravenous contrast, reconstructed in axial, coronal, and sagittal planes, and reviewed in brain, bone and subdural windows. Radiation dose: Total DLP = 1173.6 mGy*c m. Findings: Stable appearance of subarachn oid hemorrhage about the anterior frontal lobes and anterior right temporal lobe. Similar appearance of the hemorrhagic contusion in the supraorbital right frontal lobe with associated edema. Similar volume and max imal thickness of epidural hemorrhage superficial to the middle third of the superior sagittal sinus; this measures 5 mm in thickness. Small amount of layering hemorrhage in the occipital horns of the ventricles. T here is suggestion of a small hygroma along the right frontal convexity, stable to perhaps slightly increased in size. No midline shift. Stable size of the ventricles; no hydrocephalus. The basal cisterns are pa tent. No acute appearing loss of the otto-white differentiation. Fracture of the right frontal bone exten ding into the left parietal bone; there is mild comminution of the left parietal bone. Small chronic deformity of the right medial orbital wall. Unchanged right maxillary sinus opacification. Mastoid air cells a re clear. Soft tissue swelling of the scalp overlying the fracture. IMPRESSION Impression: The head CT has not substantially change d. Small epidural hemorrhage of the paramed yonas vertex, small amount of subarachnoid change in the supratentorial compartment, and hemorrhagic contusion in the right supraorbital frontal lobe. Stable skull fracture. I have personally reviewed the image(s) and initial interpretation, and I agree with the findings as documented by the resident/fellow. Reading Radiologist: Piyush Santoyo Reading Resident: Andrew Jerry Edwin Churchill MD CT NEURO COVID-19 SURVEILLANCE (01/28/2022 7:30 PM CDT) [facility] Signature COVID-19 Not Detected Not Detected [facility] Specimen (Source) Anatomical Collection Method Collection Time Re ceived Time Location / / Volume Laterality Nasopharyngeal Swab 01/28/2022 7:30 01/28 PM CDT 7:34 PM CDT Narrative [facility] - 01/28/2022 8:16 PM CDT Preferred specimen is Nasopharyngeal swab Is the patient a healthcare employee: No Is the patient a [employer] ([facility]) Employee : No Rudy Villa MD LABORATORY Performing Organization Address [facility]/ZIP Code Phon e Number [facility] [place] [address] TROP 4H (01/28/2022 7:30 PM CDT) athologist Signature 4H Trop 4 <=34 ng/L [facility] 4H Delta na Not Significant [facility] Comment: Unable to calculate delta, miss ing timed collection. Specimen Anatomical Collection Method Collection Time Receive d Time (Source) Location / / Volume Laterality Blood 01/28/2022 7:30 PM 7:41 CDT PM CDT Rudy Villa MD LABORATORY Performing Organization Address [facility] Phon e Number [facility] [place] [address] XR TIB FIB RIGHT 2 V AP + LAT* (01/28/2022 7:16 PM CDT) Anatomical Region Laterality Modality Lower Extremity Computed Radiography Specimen (Source) Anatomical Collection Method Collection Time Re ceived Time Location / / Volume Laterality 01/28/2022 7:17 PM CDT Impressions 01/28/2022 7:17 PM CDT Impression: No fracture. Reading Radiologist: Nino Giraldo Narrative 01/28/2022 7:17 PM CDT Indication: ??pain with palpation after fall ?? Findings: The alignment is normal. No fr acture or dislocation is seen. No other abnormality is noted. Procedure Note Nino Giraldo MD - 01/28/2022Formatti ng of this note might be different from the original. Indication: pain with palpation after fa ll Findings: The alignment is normal. No fr acture or dislocation is seen. No other abnormality is noted. IMPRESSION Impression: No fracture. Reading Radiologist: Nino Giraldo Hudson Mehta MD X-RAY ED EKG (12-LEAD) (01/28/2022 4:53 PM CDT) Specimen (Source) Anatomical Collection Method Collection Time Re ceived Time Location / / Volume Laterality 01/28/2022 4:53 PM CDT Impressions [facility] EKG ORDERS - 01/28/2022 4:53 P M CDT SINUS RHYTHMNo Previous ECGs Available RIGHT BUNDLE BRANCH BLOCK ??[120+ ms QRS DURATION, UPRIGHT V1, 40+ ms S IN I/aVL/V4/V5/V6]No Previous ECGs Available LEFT POSTERIOR FASCICULAR BLOCK ??[QRS A XIS > 109, INFERIOR Q]No Previous ECGs Available ABNORMAL ECGNo Previous ECGs Available Summary: No Previous ECGs AvailableNo Pr evious ECGs Available P-R Interval 201 ms QRS Interval 158 ms QT Interval 414 ms QTC Interval 425 ms P Koppel -18 QRS Koppel 138 T Wave Koppel -13 Procedure Note Aarti Garay MD - 01/28/2022Format ting of this note might be different from the original. IMPRESSION SINUS RHYTHMNo Previous ECGs Available RIGHT BUNDLE BRANCH BLOCK [120+ ms QRS D URATION, UPRIGHT V1, 40+ ms S IN I/aVL/V4/V5/V6]No Previous ECGs Available LEFT POSTERIOR FASCICULAR BLOCK [QRS AXI S > 109, INFERIOR Q]No Previous ECGs Available ABNORMAL ECGNo Previous ECGs Available Summary: No Previous ECGs AvailableNo Pr evious ECGs Available P-R Interval 201 ms QRS Interval 158 ms QT Interval 414 ms QTC Interval 425 ms P Koppel -18 QRS Koppel 138 T Wave Koppel -13 Hudson Mehta MD EKG Performing Organization Address City/State/ZIP Code Phon e Number [facility] EKG ORDERS XR PELVIS AP* (01/28/2022 4:09 PM CDT) Anatomical Region Laterality Modality Pelvis Computed Radiography Specimen (Source) Anatomical Collection Method Collection Time Re ceived Time Location / / Volume Laterality 01/28/2022 4:20 PM CDT Impressions 01/28/2022 4:20 PM CDT IMPRESSION: Osteoarthritis. No acute findings. Reading Radiologist: Nino Giraldo Narrative 01/28/2022 4:20 PM CDT Indication: ??fall on ice ?? COMPARISON: None FINDINGS: Degenerative changes are prese nt at both hip joints. There is no fracture or dislocation. No other abnormality is seen. Procedure Note Nino Giraldo MD - 01/28/2022Formatti ng of this note might be different from the original. Indication: fall on ice COMPARISON: None FINDINGS: Degenerative changes are prese nt at both hip joints. There is no fracture or dislocation. No other abnormality is seen. IMPRESSION IMPRESSION: Osteoarthritis. No acute fin dings. Reading Radiologist: Nino Giraldo Rudy Villa MD X-RAY XR CHEST 2 VIEWS PA + LAT* (01/28/2022 4:09 PM CDT) Anatomical Region Laterality Modality Chest Computed Radiography Specimen (Source) Anatomical Collection Method Collection Time Re ceived Time Location / / Volume Laterality 01/28/2022 4:20 PM CDT Impressions 01/28/2022 4:20 PM CDT Impression: ??Clear chest. Reading Radiologist: Nino Giraldo Narrative 01/28/2022 4:20 PM CDT Indication: ??fall head bleed ?? COMPARISON: None Findings: ??The heart and pulmonary vasc ulature are normal. ??The lungs are clear. ??There is no pleural effusion or pneumothorax. ??No other abnormality is seen. Procedure Note Nino Giraldo MD - 01/28/2022Formatti ng of this note might be different from the original. Indication: fall head bleed COMPARISON: None Findings: The heart and pulmonary vascul ature are normal. The lungs are clear. There is no pleural effusion or pneumothorax. No other abnormality is seen. IMPRESSION Impression: Clear chest. Reading Radiologist: Nino Giraldo Rudy Villa MD X-RAY ED US FAST-TRAUMA (01/28/2022 3:49 PM CDT) Anatomical Region Laterality Modality Ultrasound Specimen (Source) Anatomical Location Collection Method / Collectio n Time Received Time / Laterality Volume Narrative 01/28/2022 5:45 PM CDT ED Trauma eFAST Ultrasound Indications: Blunt Trauma, Suspicion of Abdomen Fluid/Blood, Suspicion of Pneumothorax/Hemothorax, and Other gener al symptoms and signs Window: Cardiac Window, Heptorenal Windo w, Perisplenic Window, Pelvic Window, and Thoracic Window Findings: No Pericardial Effusion identi fied, No Free Intraperitoneal Fluid identified, No Pleural Effusion id entified, and Lung Sliding Present Bilaterally. Incidental left renal cyst Impression: No Pericardial Effusion iden tified, No Free Intraperitoneal Fluid identified, No Pleural Effusion id entified, and No Pneumothorax Identified; incidental left renal cyst Maricel Aguilar MD, 01/28/2022 5:29 PM ED Attending Ultrasound Note: I have personally reviewed the image(s) and initial interpretation, and I agree with the findings as documented. Hudson Mehta MD, 01/28/2022 5:45 PM Rudy Villa MD ED ULT CT OUTSIDE READ SPINE CERVICAL/NECK (01/28/2022 3:48 PM CDT) Anatomical Region Laterality Modality Cervical Spine Computed Tomography Specimen (Source) Anatomical Collection Method Collection Time Re ceived Time Location / / Volume Laterality 01/28/2022 4:00 PM CDT Impressions 01/28/2022 6:05 PM CDT Impression: ?? 1. No acute fracture or traumatic sublux ation of the cervical vertebra. 2. Multilevel cervical spondylosis . The re is severe neural foraminal stenosis on the right at C3-4. There is also moderate neural foraminal stenosis on the left at C5-6 and C3-4. I have personally reviewed the image(s) and initial interpretation, and I agree with the findings as documented by the resident/fellow. Reading Radiologist: Edwin Mosher Resident: Jayce Hobson 01/28/2022 6:05 PM CDT Indication: ??Patient transferred from [facility] due to Trauma. ??No initial report accompanied the patient and/or Dr. ??RUDY VILLA requested an interpretation by me. Technique: ??CT scan of the cervical spi ne done on 01/28/2022 without IV contrast. ??3 mm axial, sagittal and coronal reconstructions reviewed in soft tissue and bone windows, per the local institution' s scanning protocols, which may differ f rom the [facility] trauma protocols. Findings: ?? The lateral masses of C1 appear normally aligned on C2. Reversal of the lordotic curvature centered at C6. Subtle degenerative grade 1 anterolisthesis C4-5. No acute fracture or traumatic subluxation jung spected. Multilevel degenerative endplat e changes most apparent at C5-6 and C6-7 where there is moderate loss of disc height. Prevertebral soft tissues are unremarkable. Moderate atlantodental arthropat hy. Multilevel anterior osteophytic spur ring most apparent at C5-6. Chronic calcification in the posterior paraspinal soft tissues about C4 and C5. Multilevel facet arthropathy and uncinat e hypertrophy. Notable level at C3-4 on the right where there are advanced changes with severe right foraminal stenosis and moderate left foraminal stenosis. Ther e is also moderate uncinate hypertrophy on the left at C5-6 causing moderate neural foraminal stenosis. This is partially disc osteophyte complex effacing the anterolateral left aspect of the thecal sac at C5-6 and likely causing mild spinal canal stenosis. Facet arthropathy at the C3-4 level on the right also narrows the transverse foramen. Procedure Note Edwin Mosher MD - 01/28/2022Formattin g of this note might be different from the original. Indication: Patient transferred from [facility] due to Trauma. No initial report accompanied the patient and/or . RUDY VILLA requested an interpretation by me. Technique: CT scan of the cervical spine done on 01/28/2022 without IV contrast. 3 mm axial, sagittal and coronal reconstructions reviewed in soft tissue and bone windows, per the local institution's scanning protocols, which may differ from the [facility] trauma protocols. Findings: The lateral masses of C1 appear normally aligned on C2. Reversal of the lordotic curvature centered at C6. Subtle degenerative grade 1 anterolisthesis C4-5. No acute fracture or traumatic subluxation suspected. Multilevel degenerative endpl ate changes most apparent at C5-6 and C6-7 where there is moderate loss of disc height. Prevertebral soft tissues are unremarkable. Moderate atlantodental arthropathy. Multilevel anterior osteophytic spurring most appar ent at C5-6. Chronic calcification in the posterior paraspinal soft tissues about C4 and C5. Multilevel facet arthropathy and uncinat e hypertrophy. Notable level at C3-4 on the right where there are advanced changes with severe right foraminal stenosis and moderate left foraminal stenosis. There is also moderate uncinate hypertrophy on the lef t at C5-6 causing moderate neural foraminal stenosis. This is partially disc osteophyte complex effacing the anterolateral left aspect of the thecal sac at C5-6 and likely causing mild spinal canal stenosis. Facet arthro adal at the C3-4 level on the right also narrows the transverse foramen. IMPRESSION Impression: 1. No acute fracture or traumatic sublux ation of the cervical vertebra. 2. Multilevel cervical spondylosis . The re is severe neural foraminal stenosis on the right at C3-4. There is also moderate neural foraminal stenosis on the left at C5-6 and C3-4. I have personally reviewed the image(s) and initial interpretation, and I agree with the findings as documented by the resident/fellow. Reading Radiologist: Edwin Mosher Resident: Jayce Hobson Rudy Villa MD CT NEURO CT OUTSIDE READ HEAD/FACIAL BONES (01/28/2022 3:48 PM CDT) Anatomical Region Laterality Modality Skull Computed Tomography Specimen (Source) Anatomical Collection Method Collection Time Re ceived Time Location / / Volume Laterality 01/28/2022 3:53 PM CDT Impressions 01/28/2022 5:56 PM CDT Impression: ?? 1. Right frontal subarachnoid hemorrhage and probable contusion. 2. Bilateral frontal fracture extending to the left parietal bone. Small associated epidural hemorrhage without mass effect. 3. Fracture crosses the superior sagitta l sinus. Recommend follow-up CT venogram to evaluate for possible venous thrombosis. I have personally reviewed the image(s) and initial interpretation, and I agree with the findings as documented by the resident/fellow. Reading Radiologist: Edwin Mosher Resident: Anna Beckford 01/28/2022 5:56 PM CDT Indication: ??Patient transferred from [facility] due to Trauma. ??No initial report accompanied the patient and/or Dr. ??RUDY VILLA requested an interpretation by me. Technique: ??CT scan of the head done on 01/28/2022 without IV contrast. ??3 mm axial and coronal reconstructions reviewed in soft tissue and bone windows, per the local institution's scanning protocols , which may differ from the [facility] trauma protocols. Findings: ??Subarachnoid hemorrhage parviz g the anterior right frontal lobe convexity. Hemorrhagic contusion along the right orbital portion of the frontal lobe with mild surrounding edema, better visuali zed on coronal image 29. Additional area of trace subarachnoid hemorrhage along the left frontal pole (series 2 image 40). Thin epidural hemorrhage at the vertex measuring 3 mm thickness (coronal image 44). No substantial mass effect or midli ne shift. Mild enlargement of ventricles and sulci secondary to parenchymal volume loss. Mild periventricular hypoattenuation, nonspecific but likely secondary to chronic small vessel ischemic disease. The basal cisterns are clear. Calvarium fracture along the right front al bone with fracture line extending through the coronal suture into the left parietal bone. No additional calvarium, skull base or facial fractures. Bilateral ps eudophakia. Complete opacification of th e right maxillary sinus. The remainder of the paranasal sinuses are clear. Clear mastoid air cells. Procedure Note Edwin Mosher MD - 01/28/2022Formattin g of this note might be different from the original. Indication: Patient transferred from [facility] due to Trauma. No initial report accompanied the patient and/or Dr. RUDY VILLA requested an interpretation by me. Technique: CT scan of the head done on 1 without IV contrast. 3 mm axial and coronal reconstructions reviewed in soft tissue and bone windows, per the local institution's scanning protocols, which may differ from the [facility] trauma protocols. Findings: Subarachnoid hemorrhage along the anterior right frontal lobe convexity. Hemorrhagic contusion along the right orbital portion of the frontal lobe with mild surrounding edema, better visualized on coronal image 29. Additional area of trace subar achnoid hemorrhage along the left frontal pole (series 2 image 40). Thin epidural hemorrhage at the vertex measuring 3 mm thickness (coronal image 44). No substantial mass effect or midline shift. Mild enlargement of ventr icles and sulci secondary to parenchymal volume loss. Mild periventricular hypoattenuation, nonspecific but likely secondary to chronic small vessel ischemic disease. The basal cisterns are clear. Calvarium fracture along the right front al bone with fracture line extending through the coronal suture into the left parietal bone. No additional calvarium, skull base or facial fractures. Bilateral pseudophakia. Complete opacification of the right maxillary sinus. The remainder of the paranasal sinuses are clear. Clear mastoid air cells. IMPRESSION Impression: 1. Right frontal subarachnoid hemorrhage and probable contusion. 2. Bilateral frontal fracture extending to the left parietal bone. Small associated epidural hemorrhage without mass effect. 3. Fracture crosses the superior sagitta l sinus. Recommend follow-up CT venogram to evaluate for possible venous thrombosis. I have personally reviewed the image(s) and initial interpretation, and I agree with the findings as documented by the resident/fellow. Reading Radiologist: Edwin Mosher Resident: Anna Beckford Rudy Villa MD CT NEURO HS TROPONIN (01/28/2022 3:47 PM CDT) athologist Signature HS Troponin I <4 <=34 ng/L [facility] Specimen Anatomical Collection Method Collection Time Receive d Time (Source) Location / / Volume Laterality Blood 01/28/2022 3:47 PM 2 4:22 CDT PM CDT Narrative [facility] - 01/28/2022 4:51 PM CDT If ordering as an add-on lab, you must c all the lab. Rudy Villa MD LABORATORY Performing Organization Address City/State/ZIP Code Phon e Number [facility] [place] [address] (ABNORMAL) ED CHEMISTRY LABS(NA,K,CL,CO2,GLU,CREAT,CA-IONIZED,ANION GAP) (01/28/2022 3:47 PM CDT) Analysis Performed At Patho logist Time Signature Sodium 136 135 - 148 [facility] mEq/L Chloride 110 (H) 92 - 108 [facility] mEq/L AnGap 6 (L) 8 - 16 [facility] mEq/L Glucose 105 (H) 70 - 100 [facility] mg/dL ICA, Actual 3.61 (L) 4.40 - [facility] 5.20 mg/dL ICA, pH 3.95 (L) 4.40 - [facility] Corrected 5.20 mg/dL Creatinine 0.88 0.70 - [facility] 1.25 mg/dL BICARB 20 (L) 22 - 26 [facility] mEq/L eGFR, High 91 >=60 [facility] ml/min/1.7 3m2 Comment: Calculated using CKD-EPI equati on eGFR, Low 79 >=60 ml/min/1.73m2 [facility] Comment: Calculated using CKD-EPI equati on Potassium 4.0 3.5 - 5.3 mEq/L [facility] Specimen Anatomical Collection Method Collection Time Receive d Time (Source) Location / / Volume Laterality Blood 01/28/2022 3:47 PM 3:57 CDT PM CDT Rudy Villa MD LABORATORY Performing Organization Address City/State/ZIP Code Phon e Number [facility] [place], [place] [id number] [place] [address] (ABNORMAL) CBC WITH PLTS/AUTO DIFF (01/28/2022 3:47 PM CDT) Analysis Performed At Patho logist Time Signature WBC 7.96 4.00 - [facility] 10.00 k/cmm RBC 4.28 (L) 4.60 - [facility] 6.00 m/cmm Hgb 13.6 13.1 - [facility] 17.5 g/dL Hematocrit 41.0 40.0 - [facility] 51.0 % MCV 95.8 80.0 - [facility] 100.0 fL MCH 31.8 25.0 - [facility] 32.0 pg MCHC 33.2 31.0 - [facility] 36.0 g/dL RDW 13.1 11.5 - [facility] 14.5 % Plt 169 150 - 400 [facility] k/cmm MPV 10.1 6.5 - 12.5 [facility] fL Automated Abs 6.58 (H) 1.70 - [facility] Neutrophil 6.50 k/cmm Comment: Preliminary ANC, Final Result t o Follow Abs Immature Granulocyte 0.03 0.00 - 0.09 k/cmm [facility] Comment: The Immature Granulocyte Absolu te count contains metamyelocytes and myelocytes. Abs Neutrophil 6.58 (H) 1.70 - 6.50 k/cmm [facility] LA B Abs Lymphocyte 0.95 0.80 - 4.00 k/cmm [facility] LA B Abs Monocyte 0.35 0.20 - 1.00 k/cmm [facility] Abs Eosinophil 0.03 0.00 - 0.60 k/cmm [facility] LA B Abs Basophil 0.02 0.00 - 0.20 k/cmm [facility] Specimen Anatomical Collection Method Collection Time Receive d Time (Source) Location / / Volume Laterality Blood 01/28/2022 3:47 PM 2 4:22 CDT PM CDT Rudy Villa MD LABORATORY Performing Organization Address City/[facility] Phon e Number [facility] [place] [address] PRECAUTIONARY TUBE (01/28/2022 3:47 PM CDT) Patholo gist Method Time Signature Prec Tube Precautionary [facility] Blood Bank Specimen Received. Specimen Anatomical Collection Method Collection Time Receive d Time (Source) Location / / Volume Laterality Blood 01/28/2022 3:47 PM 2 3:57 CDT PM CDT Rudy Villa MD LAB TRANSFUSION SERVICES Performing Organization Address [facility]/ZIP Code Phon e Number [facility] [place] [address] EXTRA TUBE - DARK GREEN (01/28/2022 3:36 PM CDT) P athologist Signature DARK GREEN TUBE Stored [facility] Comment: Dark Green tubes ([place] Hepar in) are stored in the lab for 1 day from the collection date. Specimen Anatomical Collection Method Collection Time Receive d Time (Source) Location / / Volume Laterality Blood 01/28/2022 3:36 PM 2 3:58 CDT PM CDT Narrative [facility] - 01/28/2022 3:58 PM CDT Ordered by [id number] Provider Unknown LABORATORY Performing Organization Address City/[facility]/ZIP Code Phon e Number [facility] [place] [address] EXTRA TUBE - LIGHT GREEN (01/28/2022 3:36 PM CDT) athologist Signature LIGHT GREEN Stored [facility] TUBE Comment: Green tubes ([place] Heparin) a re stored in the lab for 3 days from the collection date. Specimen Anatomical Collection Method Collection Time Receive d Time (Source) Location / / Volume Laterality Blood 01/28/2022 3:36 PM 2 3:58 CDT PM CDT Narrative [facility] - 01/28/2022 3:58 PM CDT Ordered by [id number] Provider Unknown LABORATORY Performing Organization Address City/[facility]/ZIP Code Phon e Number [facility] [place] [address] EXTRA TUBE - BLUE (01/28/2022 3:36 PM CDT) athologist Signature BLUE TUBE [facility] Comment: Blue top(Sodium citrate) tubes are kept for 3 days from the collection date. Specimen Anatomical Collection Method Collection Time Receive d Time (Source) Location / / Volume Laterality Blood 01/28/2022 3:36 PM 2 3:58 CDT PM CDT Narrative [facility] - 01/28/2022 3:58 PM CDT Ordered by ~[id number] Provider Unknown LABORATORY Performing Organization Address City/[facility]/ZIP Code Phon e Number [facility] [place] [address] EXTRA TUBE - SST (01/28/2022 3:36 PM CDT) athologist Signature SST TUBE Stored [facility] Comment: SST tubes (Serum Separator) are stored in the lab for 3 days from the collection date. Specimen Anatomical Collection Method Collection Time Receive d Time (Source) Location / / Volume Laterality Blood 01/28/2022 3:36 PM 2 3:58 CDT PM CDT Narrative [facility] - 01/28/2022 3:58 PM CDT Ordered by ~[id number] Provider Unknown LABORATORY Performing Organization Address City/State/ZIP Code Phon e Number [facility] [place] [address] from Last 3 Months Insurance Payer Benefit Plan Subscriber ID Effective Dates Phone Address Type / Group [employer] [id number] 2019-Presen [phone] [address] Medicare SENIORS t 0 [facility] ([place]IC[place] [address] ADVANTAGE) [phone] (Home) [place] [id number] Advance Directives For more information, please contact: [phone] Latest Code Status on File Code Status Date Activated Date Inactivated Comments Full Code 01/28/2022 8:52 PM 01/30/2022 5:33 PM Question Answer Comments Does the Patient have preferences regarding life sustaining Yes measures (these options only apply when the patient has a pulse): Patient will accept intubation for respiratory deterioration : Unaddressed Patient will accept BiPAP for respiratory deterioration: Camila ddressed Patient will accept vasopressors for hypotension: Unaddresse d Patient will accept cardioversion for unstable rhythm: Unadd ressed Discussed Code Status With Whom? 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 [place] [id number]
--- OUTSIDE RECORDS SUMMARY | 2022-03-04 08:23 | XMS_ITS | Encounter Summary ---
:1935 Author Organization [facility] Address [address] [place] [phone] Phone Care Team Providers Name Role Phone Juan Antonio Garber MD Primary Care Provider Reason for Referral Consult/Test/Treat (Urgent) - Closed Specialty Diagnoses / Procedures Referred By Contact Refer red To Contact Physical Medicine and Diagnoses SAH (subarachnoid hemorrhage) () Chucho Britt [facility] / PHYSICAL KE STARKS [address] [place] [address] MEDICINE AND REHAB [address] [place] [phone] Referral ID Status Reason Start Date Expiration Date Visits Requ ested Visits Authorized [id number] Closed 01/29/2022 01/29/2023 1 1 Consult/Test/Treat (Urgent) - Closed Specialty Diagnoses / Procedures Referred By Contact Refer red To Contact Physical Medicine and Diagnoses SAH (subarachnoid hemorrhage) () Edwin Churchill MD Csc [facility] / PHYSICAL [address] [place] [address] [place] [address] [place] [phone] Fax: Referral ID Status Reason Start Date Expiration Date Visits Requ ested Visits Authorized [id number] Closed 01/29/2022 01/29/2023 1 1 Reason for Visit Reason Comments Fall Auth/Cert (Routine) Specialty Diagnoses / Procedures Referred By Contact Refer red To Contact SURGERY Diagnoses SAH (subarachnoid hemorrhage) () Hudson Mehta MD [address] [facility] [address] [place], [place] [address] [address] [place] [address] Phone: Fax: Referral ID Status Reason Start Date Expiration Date Visits Requ ested Visits Authorized [id number] 1 1 Encounter Details Date Type Department Care Team Description 01/28/2022 - Hospital Encounter [facility] Hudson Mehta MD [address] [facility] [address]25 [place] [address] SAH (subarachnoid 01/30/2022 Surgery/Trauma/Neur Edwin Churchill MD [address] [facility] [address] [place] [address] hemorrhage) () o 4 Dony Sidhu MD [address] [facility] [address] [place] [address] 701 [facility] [address] [place] [address] Social History Tobacco Use Types Packs/Day Years Used Date Smoking Tobacco: Unknown Tobacco Cessation: Counseling Given: Not Answered Sex Assigned at Date Recorded Not on file COVID-19 Exposure Response Date Recorded In the last 10 days, have you been in contact with No / Unsu re 01/28/2022 7:55 PM CDT someone who was confirmed or suspected to have Coronavirus/COVID-19? documented as of this encounter Last Filed Vital Signs Vital Sign Reading Time Taken Comments Blood Pressure 111/53 01/30/2022 11:06 AM CDT Pulse 72 01/30/2022 11:06 AM CDT Temperature 36.1 ??C (97 ??F) 01/30/2022 11:06 AM CDT Respiratory Rate 16 01/30/2022 11:06 AM CDT Oxygen Saturation 93% 01/30/2022 11:06 AM CDT Inhaled Oxygen Concentration - - Weight 87.4 kg (192 lb 9.6 oz) 01/28/2022 9:00 PM CDT Height 185.4 cm (6' 0.99) 01/28/2022 9:00 PM CDT Body Mass Index 25.42 01/28/2022 9:00 PM CDT documented in this encounter Discharge Summaries Dony Sidhu MD - 01/30/2022 8:13 AM CDT TRAUMA DISCHARGE SUMMARY - PGY 1 Zoran Short : 1935 Sex: male Date of Admission: 01/28/2022 Date of Discharge: 01/30/2022 Disposition: Home Primary care physician: Juan Antonio Garber MD Attending Staff: Edwin Churchill MD Significant physician provider(s): Neurosurgery Allergies Allergen Reactions Caffeine Other (see comments) Jittery ADMISSION DIAGNOSIS: Right frontal subarachnoid hemorrhage Bilateral frontal fracture extending to L parietal bone Epidural hemorrhage Traumatic Brain Injury DISCHARGE DIAGNOSIS (include any new and/or incidental findings): Right frontal subarachnoid hemorrhage Bilateral frontal fracture extending to L parietal bone Epidural hemorrhage Traumatic Brain Injury Fracture crossing superior sagittal sinus Hemorrhagic contusion of orbital portion of frontal lobe Calvarium fracture along right frontal bone - extending through coronal suture into L parietal bone Incidental Findings: - Mild enlargement of ventricles and sulci secondary to parenchymal volume loss. - Mild periventricular hypoattenuation, nonspecific but likely secondary to chronic small vessel ischemic disease. - Bilateral pseudophakia. Complete opacification of the right maxillary sinus. Operations/Procedures: None HOSPITAL COURSE: Zoran Short is a 86 y.o. male with past medical history including BPH and leiomyosarcoma s/p resection who presented to [place] ED on 01/28/2022 after slipping on ice while walking his dog with trauma to his head, resulting in bilateral frontal bone fx extending to left parietal bone, epidural hemorrhage and R frontal SAH. Patient reports hitting his L posterior head with + LOC. Witnessed fall.Patient denies blood thinner use and is neurointact on exam. Two serial CTH images showed increasingbleed in SAH/epidural, and CT venogram 01/29 showed stable SAH/epidural and moderate stenosis of superior sagittal sinus without thrombosis. He has had benign neurological examinations since and is medically ready for discharge. Patient will complete 7 days of Keppra 1g BID and will follow up with TBIclinic. PENDING TESTS RESULTS: None PHYSICAL EXAMINATION: BP 126/88 (Cuff Location: Right Arm) Pulse 58 Temp 36.9 ??C (98.5 ??F) (Tympanic) Resp 16 Ht1.854 m (6' 0.99) Wt 87.4 kg (192 lb 9.6 oz) SpO2 93% BMI 25.42 kg/m?? Estimated body mass index is 25.42 kg/m?? as calculated from the following: Height as of this encounter: 1.854 m (6' 0.99). Weight as of this encounter: 87.4 kg (192 lb 9.6 oz). General: Alert, cooperative, no acute distress Neuro: Oriented, moves all extremities, strength symmetrical, no sensory deficits, cranial nerves intact Head: Normocephalic. No lesions or tenderness. Midface stable. L posterior scalp abrasion and contusion Eyes: Sclera white, no discharge, EOM Intact, PERRL Ears: External ears normal. No Drainage. Nose: External nares normal. No Drainage. Neck: Supple. No midline tenderness. Mouth: Oral mucosa pink and intact. No Lesions. No malocclusion. Cardiovascular: Rate as noted, regular rhythm, no murmur or rubs. Chest Wall: No focal tenderness to palpation, equal rate and rise. No injury, previous surgical scaron R upper chest Pulmonary: Breathing comfortably on room air, breath sounds clear/equal bilaterally GI: Soft, non-distended, non-tender Musculoskeletal: All joints with full active ROM; no deformity Extremities: Warm, distal pulses intact, no LE edema Skin: Warm and dry without ecchymoses or lesions. Global Account Executive Needed: no PLANNED DISCHARGE ORDERS: Suture/Russell: None Wound Care Plan: Location: Left occiput; Dressing: None Drains Present: None Lines: None Activity Limitations: Up Ad Nikki Anticoagulation Plan: VTE prophylaxis contraindicated Return to Work Recommendations: n/a RECOMMENDATIONS AND FOLLOWUP: General: Surgery: None Primary Care Physician: Follow up as needed Referrals: Traumatic Brain Injury: [facility] PM&R within 2 weeks READMISSION PLANNED WITHIN 30 DAYS OF DISCHARGE? No Consultants: Neurosurgery: Mariza 1g BID x7 No anticoagulants/anti-platelets DISCHARGE ORDERS CT HEAD NO IV CONTRAST Order Notes Head CT prior to TBI clinic appointment. REFERRAL TO TRAUMATIC BRAIN INJURY REFERRAL TO TRAUMATIC BRAIN INJURY Why you were at the hospital: Order Notes You were in the hospital to have a condition after trauma to the head treated. When should I be concerned? Order Notes Go to the Emergency Department or call 911 IF: -- you have worsening unsteadiness on feet, chest pain, shortness of breath, dizziness, or severe headache -- you have pain that is not controlled by medicine, rest, elevation, or ice -- you have redness, swelling, or severe pain in one or both of your legs -- you feel you are getting worse or having an increase in problems Clinic hours (08:00 AM -05:00 PM): Call the Neuro surgery clinic Clinic at [phone] After hours or on Holidays: Call the [facility] decay control operator . Ask the decay control operator to page the Neuro Resident contracts analyst. IF: -- you have worsening unsteadiness on feet, chest pain, shortness of breath, dizziness, or severe headache -- you have pain that is not controlled by medicine, rest, elevation, or ice -- you have redness, swelling, or severe pain in one or both of your legs -- you feel you are getting worse or having an increase in problems Please keep the appointments that have already been made. Order Notes -- Please keep the appointments that have already been made. Please contact your primary care provider as needed. Order Notes Please contact your primary care provider as needed. Up as tolerated activity level. Order Notes UP TOLERATED -- Rest is an important part of healing. Save your energy by spreading out activities that make you tired. Rest as needed. -- Slowly increase your level of activity. Put ice on Order Notes -- Use ice to decrease pain or swelling: Wrap an ice pack or bag of frozen peas in a cloth (thin cloth if there is a heavy bandage, towel if no bandage). Place this over the area for 10-20 minutes at a time. Do this as needed. You may shower Order Notes -- You may shower. Fall Safety Order Notes - If prescribed, use your cane, walker, or crutches as directed. - Consider carrying a phone (cordless or cellular) with you at all times in case of an emergency - Reduce your chance of falling in your home by: -- removing throw rugs -- using a night light -- clearing the path from your bed to the bathroom. Regular diet Order Notes -- Eat a wide variety of foods, including fruits and vegetables, dairy, grains and meats. Take your medicine and plan ahead for refills Order Notes - It is important that you take the medicines on your list. Work with your health care provider or pharmacist if you have questions about your medicine. - Plan ahead and use the Refill Line so that you don't run out of your medicine. It may take time toreview your chart and get the medicine ordered. Acetaminophen (Tylenol) Safety Order Notes -- Read all labels for prescription and Afpf-rce-bywgnmt medicines. Ask the pharmacist if your prescription pain medicine contains acetaminophen. -- Do not take more than one medicine that contains acetaminophen at a time. -- Do not take more of an acetaminophen-containing medicine than directed by your provider. Adults should not take more than 2 tablets at a time and no more than 3000 mg in a 24 hour period. For children, see label or package information or ask a pharmacist, and do not give more than 5 doses in 24 hours. -- Do not drink alcohol when taking medicines that contain acetaminophen. -- Stop taking your medication and seek medical help immediately if you: ---- Think you have taken more acetaminophen than directed ---- Have an allergic reaction such as swelling of the face, mouth, and throat, difficulty breathing, itching, or rash Information about medicines that were stopped or changed Order Notes Reasons medications were stopped or changed: Keppra- Please take medication as ordered until gone. Medication List START taking these medications acetaminophen 325 mg tablet Take 3 tablets (975 mg) by mouth every 6 hours as needed for Mild Pain. levETIRAcetam 1000 mg Tabs Commonly known as: KEPPRA Take 1 tablet (1,000 mg) by mouth twice daily for 13 doses. sennosides 8.6 mg Tabs Commonly known as: SENOKOT Take 1 tablet (8.6 mg) by mouth twice daily. CONTINUE taking these medications finasteride 5 mg Tabs Commonly known as: PROSCAR minocycline 50 mg Capsule Commonly known as: MINOCIN tamsulosin 0.4 mg Capsule Commonly known as: FLOMAX STOP taking these medications ibuprofen 200 mg Tabs Commonly known as: MOTRIN;ADVIL Where to Get Your Medications These medications were sent to [facility] Discharge Pharmacy - [place] [address] Hours: 02/11 acetaminophen 325 mg tablet levETIRAcetam 1000 mg Tabs sennosides 8.6 mg Tabs Discussed diagnosis and treatment plan with the patient. Patient verbalized understanding of condition and treatment plan. Audie Cassidy MD 01/30/2022 08:48 FACULTY WITH RESIDENT: I saw and evaluated the patient on the date of the resident's note. I discussed with the resident and agree with the resident's findings and plan documented in the resident's note. Any revisions by me are documented. Dony Sidhu MD, 01/31/2022 8:37 AM documented in this encounter Discharge Instructions Discharge Instr - Physical TherapyCodi Delacruz, PT - 01/30/2022 11:17 AM CDT Zoran and family: Daily walking is your best exercise after your fall and head injury. See example walking program below. I've also attached pictures of some standing exercises too for bad weather days. For walking safety outdoors: Have someone with you at all times to start Use a walking stick or trekking poles for gait stability Practice things you did before with family by your side: crossing streets, walking your dog, doing some easy/short hiking as well For neck pain/stiffness: You can use ice packs or heating pad--whatever seems to help your symptoms the most. Your Walking Program Experts recommend walking briskly on most days. Aim for a total of 210 or more minutes a week (30 minutes per day, 7 days a week). Walking programs can help you reach this goal by gradually increasing the frequency and time you walk. Try this walking program: First Week Walk daily. Walk for 5 minutes each time. Walk 3-4 times a day. Second Week Walk daily. Walk for 10 minutes each time. Walk 3-4 times a day. Third Week Walk daily. Walk for 13 minutes each time. Walk 2-3 times a day Fourth Week Walk daily. Walk for 15 minutes each time. Walk 2-3 times a day. Fifth Week Walk daily. Walk for 20 minutes each time. Walk 1-2 times a day Sixth Week and Beyond Gradually increase your minutes of walking each time, and your number of times each week, until you reach 30 minutes,7 days of the week, 1-2 times per day. Tips for Getting the Most from Your Walking Program Walk briskly. If you can sing, speed up. If you can???t talk easily, slow down. Choose good walking shoes with padded soles and good arch support. Don???t use hand or ankle weights. They can cause injuries. Walk indoors if weather is bad. Use a treadmill or walk inside a shopping mall Before you start walking, check with your healthcare provider if you are new to exercise, over 40, overweight, or a smoker; or if you have heart disease, high blood pressure, diabetes, arthritis, asthma, or any other medical condition that concerns you. Your healthcare provider can help you get started. documented in this encounter Medications at Time of Discharge Medication Sig Dispensed Refills Start Date End Date acetaminophen 325 mg oral Take 3 tablets 1000 tablet 0 01/29 tablet (975 mg) by mouth every 6 hours as needed for Mild Pain. senna (SENOKOT) 8.6 mg Take 1 tablet (8.6 30 tablet 0 01/29 oral tablet mg) by mouth twice daily. minocycline (MINOCIN) 50 Take 1 capsule (50 0 mg oral capsule mg) by mouth daily. tamsulosin (FLOMAX) 0.4 Take 1 capsule 0 mg oral capsule (0.4 mg) by mouth daily. finasteride (PROSCAR) 5 Take 1 tablet (5 0 mg oral TABS mg) by mouth daily. levETIRAcetam (KEPPRA) Take 1 tablet 13 tablet 0 01/29/2022 02/05/2022 1000 mg oral (1,000 mg) by TABSIndications: TBI and mouth twice daily possible seizure for 13 doses. documented as of this encounter Progress Notes Josie Estrada RN - 01/30/2022 2:25 PM CDT DISCHARGE NOTE D: Patient has been discharged. A: (As documented in the Discharge Planning Flowsheet) Discharge Instructions (AVS): AVS given Discharge clothing/valuables: has adequate clothing Discharge medications: patient received medications Home equipment status: no equipment needed Home equipment/supplies recommended: none Final discharge destination: Home or self care R: The patient and family understood the AVS. P: Support patient and family if they call back with questions. Edwin Almeida DDS - 01/30/2022 7:36 AM CDT NEUROSURGERY PROGRESS NOTE Zoran Short : 1935 Sex: male Assessment: Zoran Short is an 86 y.o. male with a PMH of BPH and skin cancer, who presented to the [facility] after falling on ice while walking his dog which resulted in a right frontal SAH and bilateral frontal fractures that extend to the left parietal bone. + LOC. Denies use of blood thinners. He remains neurologically intact. Repeat HCT x2 with mild increase in SAH/epidural, CT venogram 01/29 with stable SAH/epidural, moderate stenosis of superior sagittal sinus without thrombosis. Plan: - Serial Q4H neuro exams - Adequate pain control per primary team - Seizure prophylaxis - Keppra 1g BID x7 days - Normonatremia, normothermia, euglycemia - Replace electrolytes as needed - Hgb > 8.0, Plt > 100K, INR < 1.5 - SBP < 140: PRN labetalol/hydralazine to maintain SBP goals - No anticoagulants/anti-platelets - Remainder of cares per the primary team - Will need to follow-up with outpatient TBI clinic with HCT before appointment - ordered for you - DVT prophylaxis: Ok for DVT prophylaxis - Disposition: per primary, ok from NSGY perspective for discharge with TBI follow up INTERVAL HISTORY: Patient reports doing well this morning, pain is well controlled, denies nausea, vomiting, fever, chills. Denies any new numbness or weakness. Able to ambulate to bathroom. PHYSICAL EXAM: General: no distress Pulmonary/Cardiovascular: comfortable respiratory effort Neurologic: Mental status: oriented to time, place, person Cranial nerves: full visual stafford; pupils equal and reactive Full extraocular movements facial muscles symmetric no dysarthria Motor Strength: RUE strength 5/5 , LUE strength 5/5, RLE strength 5/5 and LLE strength 5/5 Reflexes: symmetric Sensation: intact sensation to light touch Incision: None LABS: BMP Lab Results Component Value Date/Time NA 136 01/30/2022532 K 3.9 01/30/2022532 CHLORIDE 106 01/30/2022532 CO2 24 01/30/2022532 GLU 122 (H) 01/30/2022532 UN 16 01/30/2022532 CR 0.97 01/30/2022532 CA 8.2 (L) 01/30/2022532 CBC Lab Results Component Value Date/Time WBC 7.41 01/30/2022532 RBC 4.05 (L) 01/30/2022532 HGB 13.1 01/30/2022532 HCT 38.1 (L) 01/30/2022532 PLT 158 01/30/2022532 RADIOLOGY: Most recent imaging was reviewed with the neurosurgery team Edwin Almeida DDS OMFS PGY-2 on Neurosurgery Service Rafal Taylor MD - 01/30/2022 12:00 [place] [address] [facility]#: [id number] PATIENT: ZORAN SHORT : 1935 DATE DICTATED: 01/30/2022 SURGERY STAFF DAILY PROGRESS NOTE DATE OF SERVICE: 01/30/2022 I saw and evaluated the patient. I discussed management with residents, KITCHEN FOOD SERVER, and PAs on the Neurosurgery team and agree with documented findings and plan. Mr. Short is doing well. He is going to be discharged today. TBI will follow up with him. I do notthink he needs any followup from us. He is doing well clinically. Rafal Taylor MD Staff Physician Neurosurgery Service Received in Air Chief Marshal: 01/30/2022 16:55:01 M: /[id number] TB/MODL Cuauhtemoc Morin - 01/29/2022 11:32 AM CDT CC Assessment Expected DC Date: 01/30/2022 Time: TBD Brief Patient Summary: Patient is a 86 y.o. male admitted on 01/28/2022 with skull fx and SAH after slipping on ice. ASSESSMENT Social Information Decision Maker at Admission: Self Living Situation: Home (Lives with ) Patient Identified Support System: , daughters woul be able to help Services Receiving: None Complex Medical Needs: Medical equipment needed (see comment) Transportation Used for Discharge: Family Safety Concerns: None Behavioral Health Concerns: None Primary Insurance: [facility] Secondary Insurance: N/A PLAN Plan/Interventions Discharge Plan: Home Risks for Readmission: None store sales manager will continue to follow until DC SUMMARY Patient lives with who can provide assist at home He has received [address] Garber is his PCP in [place]. Summary has been faxed. Edwin Almeida DDS - 01/29/2022 6:25 AM CDT NEUROSURGERY PROGRESS NOTE Zoran Short : 1935 Sex: male Assessment: Zoran Short is an 86 y.o. male with a PMH of BPH and skin cancer, who presented to the [facility] after falling on ice while walking his dog which resulted in a right frontal SAH and bilateral frontal fractures that extend to the left parietal bone. + LOC. Denies use of blood thinners. He remains neurologically intact. Repeat HCT x2 with mild increase in SAH/epidural. Plan: - Serial Q2H neuro exams until stable HCT result, then Q4H exam - CT Head venogram today - Adequate pain control per primary team - Seizure prophylaxis - Keppra 1g BID x7 days - Normonatremia, normothermia, euglycemia - Replace electrolytes as needed - Hgb > 8.0, Plt > 100K, INR < 1.5 - SBP < 140: PRN labetalol/hydralazine to maintain SBP goals - No anticoagulants/anti-platelets - Remainder of cares per the primary team - Will need to follow-up with outpatient TBI clinic with HCT before appointment - ordered for you - DVT prophylaxis: SCDs, VTE prophylaxis contraindicated at this time, will evaluate timing of starting DVT prophylaxis after a stable HCT. - Disposition: per primary INTERVAL HISTORY: Patient reports doing well this morning, pain is well controlled, denies nausea, vomiting, fever, chills. Denies any new numbness or weakness. PHYSICAL EXAM: General: no distress Pulmonary/Cardiovascular: comfortable respiratory effort Neurologic: Mental status: oriented to time, place, person Cranial nerves: full visual stafford; pupils equal and reactive Full extraocular movements facial muscles symmetric no dysarthria Motor Strength: RUE strength 5/5 , LUE strength 5/5, RLE strength 5/5 and LLE strength 5/5 Reflexes: symmetric Sensation: intact sensation to light touch Incision: None LABS: BMP Lab Results Component Value Date/Time NA 136 01/28/2022 1547 K 4.0 01/28/2022 1547 CHLORIDE 110 (H) 01/28/2022 1547 GLU 105 (H) 01/28/2022 1547 CR 0.88 01/28/2022 1547 CBC Lab Results Component Value Date/Time WBC 7.96 01/28/2022 1547 RBC 4.28 (L) 01/28/2022 1547 HGB 13.6 01/28/2022 1547 HCT 41.0 01/28/2022 1547 PLT 169 01/28/2022 1547 RADIOLOGY: Most recent imaging was reviewed with the neurosurgery team Edwin Almeida DDS OMFS PGY-2 on Neurosurgery Service Rafal Taylor MD - 01/29/2022 12:00 [place] [address] [facility]#: [id number] PATIENT: ZORAN SHORT : 1935 DATE DICTATED: 01/29/2022 SURGERY STAFF DAILY PROGRESS NOTE DATE OF SERVICE: 01/29/2022 I saw and evaluated the patient. I discussed management with residents, KITCHEN FOOD SERVER, and PAs on the Neurosurgery team and agree with documented findings and plan. Zoran is a very pleasant 86-year-old man who fell on some ice at home while walking his dog. They have been having a lot of yard work, and there has been a lot of irrigation. The other day when it wascold, it evidently froze on the sidewalk, and he could not see it. He, fortunately, is doing just fine neurologically. He is completely intact. His most impressive finding on CT is a very large bilateral frontal fracture extending to the left parietal bone. It is very impressive. He has a small right frontal subarachnoid hemorrhage and a small epidural underneath the fracture. It puts a slight degreeof pressure on his sagittal sinus but is not occluded. There is no evidence for a thrombosis. We dida CT venogram today. The patient's head CT showed a slight interval increase in the bifrontal contusion visualized on his1st scan. However, the following CT was stable, and that does not appear to be any getting worse. Neurologically, he is completely and totally fine. He is feeling better as he recovers from his fall. We told him to avoid being dehydrated. I do not think we need to push fluids other than him just beingcareful to avoid dehydration. We will follow along peripherally. Please call us if there are any questions. I do not think they will be any neurosurgical issues. Please see resident consult note dated 01/28. I personally reviewed the history, exam, images and plan and agree with note as written. Rafal Taylor MD Staff Physician Neurosurgery Service Received in Air [employer]: 01/29/2022 19:07:10 M: /[id number] TB/MODL documented in this encounter H&P Notes Edwin Churchill MD - 01/28/2022 3:46 PM CDT TRAUMA SURGERY CONSULT - PGY 2 Zoran Short : 1935 Sex: male Consult Request: This patient is being seen in consultation for evaluation of fall. Chief Complaint: Headache History of Present Injury Event: Patient reports he was coming home from walking dog and slipped on ice from a frozen sprinkler. Patient's neighbor witness the fall and helped him home. + LOC. Seen at [facility] [place] where CTH and C spine showed skull fx and small sah. On exam patient neurointact,denies blood thinners. Assessment: Patient is a 86 y.o. male with past medical history including BPH and leiomyosarcoma s/presection admitted on 01/28/2022 with b/l frontal bone fx extending to left parietal bone, epidural hemorrhage and R SAH after falling on the ice. Patient reports hitting his L posterior head with + LOC. Witness fall. Patient denies blood thinner use and is neurointact on exam. LOC: Yes - brief < 1 hr Injury Cause: fall from standing Protective Devices: None Known injuries include: Right frontal subarachnoid hemorrhage and probable contusion. Bilateral frontal fracture extending to the left parietal bone. Small associated epidural hemorrhagewithout mass effect. Fracture crosses the superior sagittal sinus. Recommendations: Tertiary exam status: Will need to be completed 12-36 hours from the time of this exam Suggested consultations include: NSG, PT/OT Additional imaging: repeat CTH and venogram in 6 hrs Admit to trauma surgery for observation Trauma Team Activated: No - ED Consult Consult requested by: Maricel Aguilar Time consulted: 1530 Staff Surgeon: Edwin Churchill Pediatric Patient < 15 years: No. [place] Trauma Team Time Out Completed: Not applicable Hospital Problem List Fall SAH Skull fx Medical/Surgical History PMHx: BPH PSHx: leiomyosarcoma s/p resection Social History Denies smoking, alcohol or drug use Family History Father [place] at 76 Medications Flomax Allergies Allergies Allergen Reactions Caffeine Other (see comments) Jittery Review of Systems Review of systems done as noted below and/or in the HPI. Physical Exam [place] Coma Scale (at time of exam): Motor 6=Obeys commands Verbal 5=Oriented Eye opening 4=Spontaneous TOTAL 15 BP 141/71 (Cuff Location: Right Arm, Patient Position: Sitting) Pulse 74 Temp 36.6 ??C (97.8 ??F) (Oral) Resp 17 SpO2 95% There is no height or weight on file to calculate BMI. General: Alert, cooperative, no acute distress Neuro: Oriented, moves all extremities, strength symmetrical, no sensory deficits, cranial nerves intact Head: Normocephalic. No lesions or tenderness. Midface stable. L posterior scalp abrasion and contusion Eyes: Sclera white, no discharge, EOM Intact, PERRL Ears: External ears normal. No Drainage. Nose: External nares normal. No Drainage. Septum Midline and without Hematoma. Neck: Supple. No midline tenderness. Mouth: Oral mucosa pink and intact. No Lesions. No malocclusion. Cardiovascular: Rate as noted, regular rhythm, no murmur or rubs. Chest Wall: No focal tenderness to palpation, equal rate and rise. No injury, previous surgical scaron R upper chest Pulmonary: Breathing comfortably on room air, breath sounds clear/equal bilaterally GI: Soft, non-distended, non-tender Back: Non-tender, spine without midline tenderness or step-offs, paraspinal tenderness Musculoskeletal: All joints with full active ROM; no deformity; stable pelvis. R tibia tenderness topalpation Extremities: Warm, distal pulses intact, no LE edema Skin: Warm and dry without ecchymoses or lesions. Procedures Performed To Date None performed Labs BMP Lab Results Component Value Date/Time NA 136 01/28/2022 1547 K 4.0 01/28/2022 1547 CHLORIDE 110 (H) 01/28/2022 1547 GLU 105 (H) 01/28/2022 1547 CR 0.88 01/28/2022 1547 CBC Lab Results Component Value Date/Time WBC 7.96 01/28/2022 1547 RBC 4.28 (L) 01/28/2022 1547 HGB 13.6 01/28/2022 1547 HCT 41.0 01/28/2022 1547 PLT 169 01/28/2022 1547 No results found for: INR Imaging Results (Include outside hospital results) CT Head: Impression: 1. Right frontal subarachnoid hemorrhage and probable contusion. 2. Bilateral frontal fracture extending to the left parietal bone. Small associated epidural hemorrhage without mass effect. 3. Fracture crosses the superior sagittal sinus. Recommend follow-up CT venogram to evaluate for possible venous thrombosis. CT C-Spine: Impression: 1. No acute fracture or traumatic subluxation of the cervical vertebra. 2. Multilevel cervical spondylosis . There is severe neural foraminal stenosis on the right at C3-4.There is also moderate neural foraminal stenosis on the left at C5-6 and C3-4. CT T-Spine: not performed CT L-Spine: not performed CT CAP: not performed Chest XR: Impression: Clear chest. Pelvis XR: IMPRESSION: Osteoarthritis. No acute findings. FAST Exam: not performed R tib fib: Impression: No fracture. I have seen and reviewed Radiology images and results. Carmen Ramirez MD, 01/28/2022 3:47 PM Surgery, PGY2 FACULTY NOTE I saw and evaluated the patient on the date of the residents note. I discussed and agree with the resident???s findings and plan outlined in the note above. Any revisions by me are documented. Edwin Churchill MD, 02/01/2022 10:23 AM documented in this encounter Consult Notes Codi Delacruz, PT - 01/30/2022 11:13 AM CDT PHYSICAL THERAPY ACUTE EVALUATION Zoran Short was seen 01/30/2022 for a Physical Therapy Observation Evaluation. PT Discharge Recommendations Discharge Recommendations: Safe for discharge to home/community/prior residence. (pt has [id number] supervision/assist) (01/30/22 1111) Barriers to discharge to home/community: Falls Risk If discharging home, would need: assistance PRN - stairs, outdoor ambulation, transportation, IADLsand 24 hr supervision due to cognitive limitations (see OT note for details). Post discharge follow-up: Outpatient PT recommended * (TBI clinic follow up first--if still balance deficits then recommend OP PT referral) (01/30/22 1111) Equipment Status: Patient will provide own equipment (walking stick) (01/30/22 1111) PT Equipment Recommended: DIAGNOSIS Patient Active Problem List Diagnosis SAH (subarachnoid hemorrhage) () TBI (traumatic brain injury) PT Treatment Diagnosis: Difficulty in Walking R 26.2 Unsteadiness on Feet R 26.81 PRECAUTIONS Falls Full Code ACTIVITY Up ad Nikki Physical Therapy Orders: Orders Placed This Encounter Procedures PT EVALUATION AND TREATMENT Standing Status: Standing Number of Occurrences: 1 Order Specific Question: Reasons for eval? Answer: As Per Dx Order Specific Question: OK for out of bed activity? (Update Activity Order) Answer: No Order Specific Question: Reason for not being cleared out of bed activity Answer: Awaiting imaging results HISTORY Pertinent History: Per Neurosurgery progress note: 86 y.o. male with a PMH of BPH and skin cancer, who presented to the [place] ED after falling on ice while walking his dog which resulted in a right frontal SAH and bilateral frontal fractures that extend to the left parietal bone. + LOC. Denies use of blood thinners. He remains neurologically intact. Repeat HCT x2 with mild increase in SAH/epidural, CT venogram 01/29 with stable SAH/epidural, moderate stenosis of superior sagittal sinus withoutthrombosis. Plan: - Serial Q4H neuro exams - Adequate pain control per primary team - Seizure prophylaxis - Keppra 1g BID x7 days - Normonatremia, normothermia, euglycemia - Replace electrolytes as needed - Hgb > 8.0, Plt > 100K, INR < 1.5 - SBP < 140: PRN labetalol/hydralazine to maintain SBP goals - No anticoagulants/anti-platelets - Remainder of cares per the primary team - Will need to follow-up with outpatient TBI clinic with HCT before appointment - ordered for you - DVT prophylaxis: Ok for DVT prophylaxis - Disposition: per primary, ok from NSGY perspective for discharge with TBI follow up Medical History No past medical history on file. SOCIAL HISTORY Information gathered from: Patient, Family, and Chart Review Per OT consult: Help Available at home: yes, 24 hour assist Patient is living in a/an : house - two story Stairs Required to enter the home: yes Stairs required once inside the home: none - patient able to stay on main level and avoid stairs if needed Bathroom set up: walk in shower Vocation Status: retired Leisure Interests: (puzzles, computer, walking dog) Transportation: at baseline patient: pt drives Mobility equipment currently available/used: none ADL Equipment currently available/used: none Prior Level of Function: ADLs/IADLs: No assistance required (Independent or modified independent) Functional Mobility: Independent without assistive device *discussed safety recs for mobility progression for home, stairs, community with pt, , dtr SUBJECTIVE Patient's stated goals: pt agreeable to PT, ready for dc to home today. and dtr receptive to teaching of home safety recs. Pain: The patient reports pain is acceptable. Mental Status: Oriented X 3, Alert, and Cooperative OBJECTIVE Initial patient presentation upon PT arrival: pt alert, resting in bed, family present Vital Signs: Vital Signs 01/30/2022 0800 01/30/2022 0828 01/30/2022 1106 BP: 126/88 126/88 111/53 Patient Position for BP: Lying Down Lying Down Lying Down Pulse: -- 58 72 SpO2: 94 % 93 % 93 % Sensation: UE: Light touch: Within Normal Limits: Yes LE: Light touch: Within Normal Limits: Yes Motor ROM/Strength: (Deficits only) A = Active P = Passive AA = Assisted Upper Ext Right ROM Right MMT Left ROM Left MMT WFL X X Shoulder Flexion Shoulder ABDuction Elbow Flexion Elbow Extension Lower Ext Right ROM Right MMT Left ROM Left MMT WFL X X X X Hip Flexion with Knee Flexion Knee Flexion Knee Extension Dorsiflexion Comments: equal strength bilaterally Transfers & Bed Mobility: Supine to Sit: Modified [place] Sit to Supine: Modified [place] Sit to Stand: Supervision, Set-Up or Standby Prompting Stand to Sit: Supervision, Set-Up or Standby Prompting Bed to Chair: Supervision, Set-Up or Standby Prompting Chair to Bed: Supervision, Set-Up or Standby Prompting Transfer Method Stand Pivot Transfer Gait Evaluation: Distance: 100 meters Assistive Device: No assistive devices Assistance (Level): Supervison,Set up or Standby Prompting- Patient requires standby supervision, cueing or coaxing to walk, or patient walks only short distances independently with or without a device(household exception). Gait Deviations: mild unsteadiness but no LOB *recommend cane/walking stick for safety outdoors Stairs: Number of Stairs: 10 Requires Rail: Yes Level of Assist: Supervision, Set-up or Standby Prompting- Patient requires supervision to go up anddown stairs with or without assistive device. Stair Pattern: Ascending Reciprocal and Descending Reciprocal Balance: Sitting: WNL Standing: Relies on assistive device for stability in standing Dynamic Stability: Dynamic Gait Index: 1. Gait Level Surface: (2) Mild Impairment: Walks 20', uses assistive devices, slower speed, mild gait deviations. 2. Change in Gait Speed: (2) Mild impairment: Is able to change speed but demonstrates mild gait deviations, or not gait deviations but unable to achieve a significant change in velocity, or uses an assistive device. 3. Gait with Horizontal Head Turns: (2) Mild Impairment: Performs head turns smoothly with slight change in gait velocity, I.e., minor disruption to smooth gait path or uses walking aid. 4. Gait with Vertical Head Turns: (2) Mild Impairment: Performs head turns smoothly with slight change in gait velocity, I.e., minor disruption to smooth gait path or uses walking aid. 5. Gait and Pivot Turn: (2) Mild Impairment: Pivot turns safely in >3 seconds and stops with no loss of balance. 6. Step Over Obstacle: (2) Mild Impairment: Is able to step over box, but must slow down and adjust steps to clear box safely. 7. Step Around Obstacles: (2) Mild Impairment: Is able to step around both cones, but must slow downand adjust steps to clear cones. 8. Steps: (2) Mild Impairment: Alternating feet, must use rail. Total: Cutoff Scores: Community Dwelling Adults: <19 indicative of increased fall risk Positioning: None/Not Indicated Interdisciplinary Communication: MD: pt passes PT Family: teaching with pt/SO and dtr Treatment rendered: Gait training;Transfer training;Strengthening;Balance/coordination training Total treatment time: 30 minutes ASSESSMENT Zoran Short is a 86 y.o. male presents 86 y.o. male with a PMH of BPH and skin cancer, who presented to the [place] ED after falling on ice while walking his dog which resulted in a right frontal SAH and bilateral frontal fractures that extend to the left parietal bone. + LOC. Denies use of blood thinners. He remains neurologically intact. Repeat HCT x2 with mild increase in SAH/epidural, CT venogram 01/29 with stable SAH/epidural, moderate stenosis of superior sagittal sinus without thrombosis. Pt presents with mild gait instability but has good family support and all agreeable with plan for dc to home today. PT recommends close supervision on stairs and outdoor gait with a cane/walking stickto improve strength and stability. Anticipate pt will make a full recovery to prior mobility without formal PT follow up but did stress importance of TBI clinic follow and to be reassessed at that timeas pt not yet independent on stairs or for outdoor surfaces. Patient presents with Impaired gait and Impaired Balance. These impairments affect the patient's ability to safely and independently perform Transfers, Ambulation, Stairs, and Community Integration. Goals: 1: Patient will be modified independent with all functional transfers by 02/02/22 to improve safety and level of functional independence for home setting--MET 2: Patient will be supervision with gait on level surfaces at least 100 meters by 02/02/22 to improve safety and level of functional independence for home setting--MET 3: Patient will be supervision with 10 stairs with railing by 02/02/22 to improve safety and level of functional independence for home setting--MET PLAN Patient is functionally safe for discharge to home with 02/11 family support today. Recommend TBI clinic for follow up. FLY MAKER Appropriate: Yes Participated in goal setting and treatment planning: Patient, Family Agrees with goals and treatment plan: Patient - Yes, Family - Yes. Codi Delacruz, PT 01/30/2022 Pager: [facility] Department Physical Therapy Instructions Zoran and family: Daily walking is your best exercise after your fall and head injury. See example walking program below. I've also attached pictures of some standing exercises too for bad weather days. For walking safety outdoors: Have someone with you at all times to start Use a walking stick or trekking poles for gait stability Practice things you did before with family by your side: crossing streets, walking your dog, doing some easy/short hiking as well For neck pain/stiffness: You can use ice packs or heating pad--whatever seems to help your symptoms the most. Your Walking Program Experts recommend walking briskly on most days. Aim for a total of 210 or more minutes a week (30 minutes per day, 7 days a week). Walking programs can help you reach this goal by gradually increasing the frequency and time you walk. Try this walking program: First Week Walk daily. Walk for 5 minutes each time. Walk 3-4 times a day. Second Week Walk daily. Walk for 10 minutes each time. Walk 3-4 times a day. Third Week Walk daily. Walk for 13 minutes each time. Walk 2-3 times a day Fourth Week Walk daily. Walk for 15 minutes each time. Walk 2-3 times a day. Fifth Week Walk daily. Walk for 20 minutes each time. Walk 1-2 times a day Sixth Week and Beyond Gradually increase your minutes of walking each time, and your number of times each week, until you reach 30 minutes,7 days of the week, 1-2 times per day. Tips for Getting the Most from Your Walking Program Walk briskly. If you can sing, speed up. If you can???t talk easily, slow down. Choose good walking shoes with padded soles and good arch support. Don???t use hand or ankle weights. They can cause injuries. Walk indoors if weather is bad. Use a treadmill or walk inside a shopping mall Before you start walking, check with your healthcare provider if you are new to exercise, over 40, overweight, or a smoker; or if you have heart disease, high blood pressure, diabetes, arthritis, asthma, or any other medical condition that concerns you. Your healthcare provider can help you get started. Mk Carcamo OTR/Che - 01/29/2022 4:27 PM CDT OCCUPATIONAL THERAPY ACUTE INITIAL EVALUATION Zoran Short 01/29/2022 OT Discharge Recommendations Discharge Recommendations: Safe for discharge to home/community/prior residence. Post Discharge Follow-up: MD referral to Outpatient TBI clinic Equipment Recommended: None OT In-patient follow-up / recommended referrals: D/C skilled OT services as no further interventions indicated and met goals during session Recommend PM&R consult (OT): Not at this time Patient Name: Zoran Short : 1935 Age: 86 y.o. Hospital Admit date: 01/28/2022 Today's Date: 01/29/2022 Occupational Profile Medical History relevant to OT referral: Primary Diagnosis: Active Problems: SAH (subarachnoid hemorrhage) () Resolved Problems: * No resolved hospital problems. * Treatment Diagnosis: Impairments in cognition that limit safety and or independence with ADL's / IADL's Restrictions/Precautions: Activity Level: Up Ad Nikki Hospital Course: Zoran Short is an 86 y.o. male with a PMH of BPH and skin cancer, who presented to the [place] ED after falling on ice while walking his dog which resulted in a right frontal SAHand bilateral frontal fractures that extend to the left parietal bone. + LOC. Denies use of blood thinners. He remains neurologically intact. Repeat HCT x2 with mild increase in SAH/epidural. Past Medical History No past medical history on file. Comorbidities identified that impacted OT assessment and treatment planning? yes Living Situation/Social History: Information obtained From: patient Help Available at home: yes, 24 hour assist Patient is living in a/an : house - two story Stairs Required to enter the home: yes Stairs required once inside the home: none - patient able to stay on main level and avoid stairs if needed Bathroom set up: walk in shower Vocation Status: retired Leisure Interests: (puzzles, computer, walking dog) Transportation: at baseline patient: pt drives Mobility equipment currently available/used: none ADL Equipment currently available/used: none Prior Level of Function: ADLs/IADLs: No assistance required (Independent or modified independent) Functional Mobility: Independent without assistive device Gathering the above information required the following: Brief chart audit / interview Evaluation Subjective: I like being on the computer Pain: Pain Rating With Activity (Numeric): no overt signs of pain Participation Significantly Limited?: No Action Taken: No action needed Patient Appearance: Lines- Peripheral IV(s) Vitals: Stab;e Upper Extremity Function: Bilateral UE ROM, strength, coordination, and sensation are WFL for basic self-cares. Activities of Daily Living: Grooming: Modified independence Grooming Comments: g/h standing at sink Functional Mobility: Supine to/from Sit - FIM: Modified independence Sit to/from Stand - FIM: Modified independence Bed to/from Chair - FIM: Modified independence Bed to Bathroom- FIM: Modified independence Bed to Bathroom- Method: None Activity Tolerance/Endurance: Patient tolerates sitting in chair standing at sink. Pt able to complete functional mobility within room and hallway environment with mod I Cognition: Mental Status: Alert;Follows 1 step direction;Cooperative [place] Cognitive Assessment (MOCA): A rapid screen of cognitive abilities designed to detect mild cognitive dysfunction. This test contains 16 items and 11 categories to assess multiple cognitive domains. A total score of 26 or higher is considered within normal limits. MOCA Subsection Scores: 5 / 5 Visuospatial / Executive 3 / 3 Naming 6 / 6 Attention 3 / 3 Language 2 / 2 Abstraction 3 / 5 Delayed Recall (see MIS below) 4 / 6 Orientation Added 1 point for 12 or fewer years of education? No 26 / 30 Total Score (26 or higher = WNL) MOCA Memory Index Score (MIS) based on delayed recall above: 3 (3 x # of words recalled with no cue) 0 (2 x # of words recalled with category cue) 2 (1 x # of words recalled with multiple choice cue) Total Memory Index Score Delirium assessment: Confusion Assessment Method (CAM) Delirium prevention / intervention appears indicated? No. Insight: Pt demonstrates insight into current condition and related safety considerations - Yes Problem solving: Pt able to complete basic functional problem solving - Yes Visual Perception: Pt reports visual changes - No Modifications to assessment process required: Mild Modifications to assessment process included the following: No modification required Additional Treatment / Education Provided: Education / training was provided to patient and family regarding - TBI: Symptoms, precautions, follow up. See AVS for details, Cognitive endurance techniques, Energy conservation, Visual compensation techniques, and Prevention of symptom exacerbation - Energy conservation: Interdisciplinary Communication: RN: [place] for OT session session review Barriers to Learning: none identified Rehab Potential: good ASSESSMENT: Zoran Short is an 86 y.o. male with a PMH of BPH and skin cancer, who presented to the [place] ED after falling on ice while walking his dog which resulted in a right frontal SAH and bilateral frontal fractures that extend to the left parietal bone. + LOC. Denies use of blood thinners. He remains neurologically intact. Repeat HCT x2 with mild increase in SAH/epidural. Pt mod I with ADLs and ADL mobility and MOCA cognitive score 26/30 indicating WNL, rec home with assist PRN and follow up in TBI clinic due to +LOC and bleed in brain. OT will sign off at this time. (See box at the top of note for additional information) Impairments: This patient demonstrates impairments in the following: No impairments identified Performance Deficits / Activity Limitations: The impairments listed above affect the patient's ability to safely and independently engage in the following occupations : No performance deficits/activitylimitations identified Patient's Stated Goals: get home PLAN: See box at top of note for additional information. See care plan for OT goals (if indicated). Participated in goal setting and treatment planning: Patient, Family Agrees with goals and treatment plan: Patient - Yes, Family - Yes Total treatment time: 25 minutes OT interventions and time spent on each: Eval: 15 minutes Self care/Home mgmt/ADL: 10 minutes Therapist: MAGGIE Enriqeu Pager: [facility] Occupational Therapy Department Anila Ambrocio PharmD - 01/29/2022 3:54 PM CDTAssociated Order(s): DISCHARGE MED REC FINAL REVIEW BY PHARMACY PHARMACY DISCHARGE NOTE Zoran Short : 1935 Sex: male Pharmacy service was consulted for review of patient's discharge medications. Planned discharge medications are: Medication List Medications Indications acetaminophen 325 mg tablet Take 3 tablets (975 mg) by mouth every 6 hours as needed for Mild Pain. NEW finasteride 5 mg Tabs Commonly known as: PROSCAR Take 1 tablet (5 mg) by mouth daily. levETIRAcetam 1000 mg Tabs Commonly known as: KEPPRA Take 1 tablet (1,000 mg) by mouth twice daily for 13 doses. Indications: TBI and possible seizure NEW - to complete 7 days of prophylaxis minocycline 50 mg Capsule Commonly known as: MINOCIN Take 1 capsule (50 mg) by mouth daily. senna 8.6 mg tablet Commonly known as: SENOKOT Take 1 tablet (8.6 mg) by mouth twice daily. NEW tamsulosin 0.4 mg Capsule Commonly known as: FLOMAX Take 1 capsule (0.4 mg) by mouth daily. Assessment: Pertinent points to note: see above I have reviewed the patient's medications for discharge and have discussed the necessary changes with the provider. Changes have been made and medication list updated and complete. Please page with any questions. Anila Ambrocio PharmD 01/29/2022 15:56 For questions regarding this note, please contact pharmacist on service at [facility] and [facility] or [phone]. If no response within needed timeframe, please contact central pharmacy via phone at [phone]. Nevaeh Dao PA-C - 01/28/2022 4:34 PM CDT NEUROSURGERY CONSULT Zroan Short : 1935 Sex: male I was asked to consult on Zoran Short by Hudson Mehta MD for the evaluation of SAH and cranial fracture. Assessment: Zoran Short is an 86 y.o. male with a PMH of BPH and skin cancer, who presented to the [facility] after falling on ice while walking his dog which resulted in a right frontal SAH and bilateral frontal fractures that extend to the left parietal bone. + LOC. Denies use of blood thinners. He is neur ologically intact. Plan for repeat HCT after 6 hours and TBI follow up. Recommendations: - Serial Q2H neuro exams until stable HCT result, then Q4H exam - Adequate pain control per primary team - Repeat HCT [address] - Seizure prophylaxis - Keppra 1g BID x7 days - Normonatremia, normothermia, euglycemia - Replace electrolytes as needed - Hgb > 8.0, Plt > 100K, INR < 1.5 - SBP < 140: PRN labetalol/hydralazine to maintain SBP goals - No anticoagulants/anti-platelets - Remainder of cares per the primary team - Will need to follow-up with outpatient TBI clinic - ordered for you - DVT prophylaxis: SCDs, VTE prophylaxis contraindicated at this time, okay to resume in 48 hrs fromstable HCT - Disposition: per primary Please page Neurosurgery resident contracts analyst with questions. Case was discussed with Neurosurgery Chief Resident, Daquan Arita, [facility], 01/28/2022 4:35 PM Nevaeh Dao PA-C Neurosurgery CHIEF COMPLAINT: Headache after fall HISTORY OF PRESENT ILLNESS: Zoran Short is a 86 y.o. male presenting with right frontal SAH, bilateral frontal fractures extending to the left parietal bone, posterior cranial surface abrasion, and mild/moderate headache. Mr. Short was reportedly out walking his dog today when he slipped on some freshly watered grass thathad turned icy. He states he does not think he lost consciousness, but does not remember the fall. Kendall witness the fall and helped him walk back into his home where he sat down and paramedics were called. At this time his only symptoms was a headache. He was brought to the [place] [facility] where he was scanned and found to have this SAH and cranial fracture. He was then transferred to the [facility] ED where he was seen. At the time of assessment Mr. Short was walking around his room. Lying on the room cart he presented without neuro deficits, strong movement of all extremities, no loss of sensation, language. He denies vision changes, nausea, dizziness, weakness. He reports a mild to moderate headache across the back of his head, and a tightness across his forehead. REVIEW OF SYSTEMS: 10 pt review of systems negative except as noted in HPI PMH: BPH and skin cancer No past medical history on file. PSH: Cataract surgery Skin cancer surgery No past surgical history on file. Medications: No current facility-administered medications on file prior to encounter. No current outpatient medications on file prior to encounter. Daily use of ibuprofen; no blood thinners Allergies: Allergies Allergen Reactions Caffeine Other (see comments) Jittery FAMILY HISTORY: No neurological family history noted No family history on file. SOCIAL HISTORY: Occupational History Not on file Tobacco Use Smoking status: Not on file Smokeless tobacco: Not on file Substance and Sexual Activity Alcohol use: Not on file Drug use: Not on file Sexual activity: Not on file Social History Narrative Not on file Denied tobacco and alcohol use PHYSICAL EXAMINATION: Vital Signs: BP 141/71 (Cuff Location: Right Arm, Patient Position: Sitting) Pulse 74 Temp 36.6 ??C (97.8 ??F) (Oral) Resp 17 SpO2 95% GENERAL: WD/WN male, NAD. Lying in bed. HEENT: EOMI, PERRL, mucous membranes moist. Small abrasion on his posterior left side of his head, not bleeding. CARDIOVASCULAR: RRR. Extremities WWP. PULMONARY: No distress, effort normal. Good air movement. ABDOMEN: Non-distended. MSK: CHUN, full strength. NEUROLOGICAL: Mental status: Alert, awake. Oriented to self, date, and place. Normal speech and language. Motor: Follows commands x 4 extremities Upper Extremities: RUE: 5/5 shoulder abduction. 5/5 elbow flex/ext. 5/5 wrist flex/ext. 5/5 hand corporate intern. LUE: 5/5 shoulder abduction. 5/5 elbow flex/ext. 5/5 wrist flex/ext. 5/5 hand corporate intern. Lower Extremities: RLE: 5/5 hip flexion. 5/5 knee flex/ext. 5/5 ankle plantar-/dorsiflexion. 5/5 EHL. LLE: 5/5 hip flexion. 5/5 knee flex/ext. 5/5 ankle plantar-/dorsiflexion. 5/5 EHL Sensory: Sensation intact in all 4 extremities RESULTS: Lab results: Lab Results Component Value Date WBC 7.96 01/28/2022 RBC 4.28 (L) 01/28/2022 HGB 13.6 01/28/2022 HCT 41.0 01/28/2022 PLT 169 01/28/2022 Lab Results Component Value Date NA 136 01/28/2022 K 4.0 01/28/2022 CHLORIDE 110 (H) 01/28/2022 GLU 105 (H) 01/28/2022 CR 0.88 01/28/2022 No results found for: INR Imaging results: XR PELVIS AP* See Chart Review for Final Result IMPRESSION: Osteoarthritis. No acute findings. Reading Radiologist: Nino Giraldo XR CHEST 2 VIEWS PA + LAT* See Chart Review for Final Result Impression: Clear chest. Reading Radiologist: Nino Giraldo CT OUTSIDE READ SPINE CERVICAL/NECK Preliminary Result Impression: 1. No acute fracture or traumatic subluxation of the cervical vertebra. 2. Multilevel cervical spondylosis detailed above. There is severe neural foraminal stenosis on the right at C3-4. There is also moderate neural foraminal stenosis on the left at C5-6 and C3-4. Reading Radiologist: Edwin Mosher Reading Resident: Jayce Hobson CT OUTSIDE READ HEAD/FACIAL BONES Preliminary Result Impression: 1. Right frontal subarachnoid hemorrhage and probable contusion. 2. Bilateral frontal fracture extending to the left parietal bone. Reading Radiologist: Edwin Mosher Reading Resident: Jimbo Beckford ED US FAST-TRAUMA (Results Pending) CT HEAD NO IV CONTRAST (Results Pending) CT Head 01/28 at 3:47 PM Impression: 1. Right frontal subarachnoid hemorrhage and probable contusion. 2. Bilateral frontal fracture extending to the left parietal bone. FACULTY WITH STUDENT: I saw the patient with the medical/ALAINA student today, 01/28/2022 and performed, or re-performed, the physical exam and medical decision-making in the provision of this service andhave verified the accuracy of all the medical student documentation and edited as necessary. Nevaeh Dao PA-C, 01/28/2022 5:20 PM documented in this encounter ED Notes Tracey Salinas RN - 01/28/2022 8:01 PM CDT Initial Utilization review screening completed. Patient appears to be appropriate for INPATIENT based on trauma with injuries: SAH, gcs 15 Repeat HCT and neuro assessments pending Final order/decision will be based upon provider's assessment of patient. Tracey Salinas [employer]PER[employer]OR ED Clinical Coordinator Pager: [phone] [employer] Azael Dennis RN - 01/28/2022 7:39 PM CDT Report given to GAURANG Jeff (STN) Lorraine Wong RN - 01/28/2022 7:27 PM CDT ED to IP Nursing Handoff Note S (Situation) Reason for Admission: 1. SAH (subarachnoid hemorrhage) () Arrives to ED from: [place] [facility] Precautions/Isolation (from ED Admit Order): No B (Background) Pertinent Medical History for This Admission: Yes, No past medical history on file. Pertinent Social History: Yes, Occupational History Not on file Tobacco Use Smoking status: Unknown Smokeless tobacco: Not on file Substance and Sexual Activity Alcohol use: Not on file Drug use: Not on file Sexual activity: Not on file Social History Narrative Not on file A (Assessment) Vital Signs: BP 107/75 (Cuff Location: Right Arm, Patient Position: Sitting) Pulse 65 Temp 36.6 ??C (97.8 ??F) (Oral) Resp 16 SpO2 99% Oxygen: Room Air Mobility: Independent Mental Status: Oriented Fall Risk: No Skin/Wound Issue Present on Arrival to ED: No Telemetry Needed (from ED Admit Order): Lines/Drains/Portacath: IV lines R (Recommendations) Radiology/Labs Complete: Yes Specialty Bed: N/A Safety Concerns/Continuous Monitoring: None Elopement Risk Score: No data recorded Combative: No Restraints: None Suicide Risk Level: Visitor Present: Yes Destination/Bed Type (from ED Admit Order): Intermediate [10] Patient Belongings Documented: Other Considerations: Repeat head CT at 1930. RN: Lorraine Wong RN Extension #: [id number] Maricel Aguilar MD - 01/28/2022 3:46 PM CDT ED General H&P Chief Complaint Fall, skull fracture History of Present Illness: Zoran Short is a 86 y.o. male with no significant past medical history who presents on :16 PM after a fall. He was walking his dog with the sprinklers around, and he slipped on ice. +LOC, remembers is waking up with his neighbor over him. He denies any chest pain or palpitations before or after the fall, denies any nausea, abdominal pain, or pain anywhere else. He does report a frontalheadache. Was brought to an outside hospital where they did a CT of his head and found to have a temporal skull fracture as well as a small subarachnoid, transferred here for further cares. Past Medical History: Patient's PMH, SH and FH was reviewed in [facility] and with the patient. ROS: 10 point ROS performed and negative except as stated in HPI Physical Exam: BP 141/71 (Cuff Location: Right Arm, Patient Position: Sitting) Pulse 74 Temp 36.6 ??C (97.8 ??F) (Oral) Resp 17 SpO2 95% Constitutional: A/A, appropriate, NAD Eyes: No conjunctival injection, PERRL, EOMI Head: Normocephalic, abrasions noted over left occipital area ENT: external nose and ears atraumatic Neck: Symmetric, trachea midline, Supple CV: RRR, no murmurs appreciated, equal pulses felt in all 4 extremities Pulm: Unlabored respiratory effort, good air movement, CTAB, no w/c/r appreciated. GI: Soft, NT/ND. No rebound or gaurding. MSK: No deformities. No cyanosis. Neuro: A&O, normal speech, following commands, grossly symmetric strength in all extremities. Cranial nerves grossly intact. Skin: warm & dry, no rashes or lesions Psych: A&O, appropriate mood & affect. Orders & Results: Orders: Orders Before Time of ED Departure - No data to display Results: No results found for this visit on 01/28/22 (from the past 24 hour(s)). ED Course, Medical Decision Making & Disposition: ED Course as of 01/28/222125Jan 28, 2022 173 Incidental left renal cyst on FAST; patient informed Differential diagnosis includes intracranial hemorrhage, intracranial injury, other traumatic injury, syncope. No reported seizure-like activity, no history of seizures, lower concern for seizure. Patient denies any chest pain or palpitations before or after the fall, EKG with a right bundle branch block but without any evidence of arrhythmias or ischemia, troponins within normal limits, low concern for cardiac syncope. FAST exam done and negative, abdomen soft and nontender, chest x-ray and pelvis x-ray done and unremarkable, low concern for any intrathoracic or intra-abdominal injuries. Neurosurgery was consulted. Patient given 500 mg of Keppra at the outside hospital, given an additional 1500 mg here. Blood pressure goals of less than 140, which patient is maintaining without difficulty. Plan to admit to intermediate care and repeat head CT in [address] did show a worsening subarachnoid, will plan for another repeat head CT in 6 additional hours. Patient continues to be neuro intact. Patient remained hemodynamically stable and comfortable in the ED under my care. Patient signed out to trauma surgery, who will take primary, with neurosurgery following. When bed became available, patient was brought upstairs. Final Clinical Impression: Fall, skull fracture, subarachnoid hemorrhage Maricel Aguilar MD, 01/28/2022 3:46 PM Lorraine Wong RN - 01/28/2022 3:17 PM CDT Pt transported from [place] [facility]. Pt went for a walk and slipped on ice. On arrival of EMS pt confused and did not remember fall. Transported to [place] ED. CT found to have subarachnoid hemorrhageand skull fracture. Received keppra. Vitally stable and no medications en route. Avinash Reza RN - 01/28/2022 3:16 PM CDT Bed: C09 Expected date: Expected time: Means of arrival: Comments: [facility] - SAH skull fx documented in this encounter Miscellaneous Notes Nursing Assessment - Josie Estrada RN - 01/30/2022 1:30 PM CDT Nursing Assessment Head to Toe Head to Toe Assessment Shift Summary Pt is alert and oriented, stand by assist. Eating and drinking ok. Voiding without difficulties, no BM yet. Up walking in the room, denied pain and discomfort, bed alarm activated for safety, able to communicate needs. Neurologic/Cognitive Within Defined Limits HEENT Within Defined Limits Cardiac Within Defined Limits Respiratory Within defined limits Neurovascular Within Defined Limits Gastrointestinal Within Defined Limits Genitourinary Within Defined Limits Musculoskeletal Assessment Within Defined Limits except for: Musculoskeletal Assessment: General Mobility: Generalized weakness Integumentary Assessment Within Defined Limits except for: Skin Assessment Color/Characteristics - bruised (ecchymotic) Integrity - abrasion(s) Patient Lines/Drains/Airways Status Active LDAs Name Placement date Placement time Site Days Peripheral IV 01/28/22 20 gauge Left Antecubital 01/28/22 1521 -- 1 Wound Occiput Left;Upper 01/28/227 -- 1 Psychosocial Within Defined Limits Nursing Assessment - Swapna Gr RN - 01/30/2022 12:17 AM CDT Nursing Assessment Head to Toe Head to Toe Assessment Shift Summary Shift Summary A/O x4, able to make needs known. Neuros unchanged. SBA when ambulating, patient does not use call light when getting up to bathroom, bed alarm on middle zone. VSS on RA. Voiding without difficulty. Denies pain. Sleeping between cares. Will continue to monitor. Neurologic/Cognitive Within Defined Limits HEENT Assessment Within Defined Limits except for: Head/Face Symptoms: trauma/injury Cardiac Within Defined Limits Respiratory Within defined limits Neurovascular Within Defined Limits Gastrointestinal Within Defined Limits Genitourinary Within Defined Limits Musculoskeletal Assessment Within Defined Limits except for: Musculoskeletal Assessment: General Mobility: Generalized weakness Integumentary Assessment Within Defined Limits except for: Skin Assessment Color/Characteristics - bruised (ecchymotic) Integrity - abrasion(s) Patient Lines/Drains/Airways Status Active LDAs Name Placement date Placement time Site Days Peripheral IV 01/28/22 20 gauge Left Antecubital 01/28/22 1521 -- 1 Wound Occiput Left;Upper 01/28/227 -- 1 Psychosocial Within Defined Limits Nursing Assessment - Yohana Wright, RN - 01/29/2022 4:00 PM CDT Nursing Assessment Head to Toe Head to Toe Assessment Shift Summary Shift Summary Alert and oriented and following commands. Has been sleepy all day. VSS and on room air. Is up with SBA to bathroom. Eating about 50% of meals and drinking well. IVF d/c'd. Denies pain. and daughter at bedside and very attentive to patient all day. Will cont to follow poc Yohana Wright, RN, 01/29/2022 5:23 PM Neurologic/Cognitive Assessment Within Defined Limits except for: Level of Consciousness: Lethargic HEENT Assessment Within Defined Limits except for: Comments: Bruising and small abrasion to head from fall Cardiac Within Defined Limits Respiratory Within defined limits Neurovascular Within Defined Limits Gastrointestinal Within Defined Limits Genitourinary Within Defined Limits Musculoskeletal Assessment Within Defined Limits except for: Musculoskeletal Assessment: General Mobility: Generalized weakness Integumentary Assessment Within Defined Limits except for: Skin Assessment Color/Characteristics - bruised (ecchymotic) Integrity - abrasion(s) Patient Lines/Drains/Airways Status Active LDAs Name Placement date Placement time Site Days Peripheral IV 01/28/22 20 gauge Left Antecubital 01/28/22 1521 -- 1 Wound Occiput Left;Upper 01/28/222226 -- less than 1 Psychosocial Assessment Within Defined Limits except for: Psychosocial Assessment: Family Behavior: at bedside, attentive to patient, participating in care and interacting with patient Comments: and daughter at bedside Trauma Tertiary Exam - Edwin Churchill MD - 01/29/2022 2:21 PM CDT TRAUMA TERTIARY EXAM - CHIP WASHER First Exam Zoran Short : 1935 Sex: male Subjective: Denies H/A, dizziness/lightheadedness, change in vision, chest pain, difficulty breathing, N/V, abdominal pain, numbness and tingling in BUE/BLE. Does have some pain with palpation of his skull. He has no other physical complaints. Admit Date & Time: 01/28/2022 3:16 PM No past medical history on file. Mental Status Adequate for Exam: Yes Examiner: Chucho Britt APRN, CNP, 01/29/2022 11:44 AM Primary Team: Red Surgery Date/Time Completed: 01/29/2022 14:23 Vital Signs: Patient Vitals for the past 8 hrs: BP Pulse Resp Temp SpO2 01/29/22 0339 129/74 66 16 37 ??C (98.6 ??F) 97 % 01/29/22 0300 -- 67 -- -- -- 01/29/22 0200 -- 67 -- -- -- 01/29/22 0100 -- 67 -- -- -- 01/29/22 0000 -- 67 -- -- -- 01/28/22 2339 136/68 68 16 36.8 ??C (98.2 ??F) 96 % 01/28/22 2300 -- 69 -- -- -- 01/28/22 2200 -- 72 -- -- -- Glascow Coma Scale: Motor 6=Obeys commands Verbal 5=Oriented Eye opening 4=Spontaneous TOTAL 15 General: Alert, cooperative, without distress Neuro: Oriented x 3, moves all extremities, strength symmetrical, no sensory deficits, cranial nerves intact Head: Normocephalic. No lesions has some tenderness with palpation. L posterior scalp abrasion and contusion Eyes: Sclera white, no discharge, EOM Intact, PERRL Ears: External ears normal. No Drainage. Bilateral Tympanic membranes Clear. Nose: External nares normal. No Drainage. Septum Midline and without Hematoma. Neck: Supple. No midline tenderness. Mouth: Oral mucosa pink and intact. No Lesions. Cardiovascular: Rate as noted, regular rhythm, no murmur or rubs. Chest Wall: No focal tenderness to palpation, equal rate and rise. Previous surgical scar on R upperchest Pulmonary: Breathing comfortably room air, breath sounds clear/equal bilaterally GI: Soft, non-distended, non-tender, BS Active x 4 : Was not assessed Back: Non-tender, spine without tenderness. Musculoskeletal: All joints with full active ROM; no deformity; stable pelvis. All long bones non-tender to palpation. Extremities: Warm, distal pulses intact, no edema. Has some tenderness in the right leg by the tibiawith palpation no bony tenderness. Patient describes the tenderness to be on the skin and it is a chronic concern. Skin: Warm and dry without ecchymoses or lesions. Imaging Results CT Head/Facial bones01/28/22 3:47 PM Findings: Subarachnoid hemorrhage along the anterior right frontal lobe convexity. Hemorrhagic contusion along the right orbital portion of the frontal lobe with mild surrounding edema, better visualized on coronal image 29. Additional area of trace subarachnoid hemorrhage along the left frontal pole ( series 2 image 40). Thin epidural hemorrhage at the vertex measuring 3 mm thickness (coronal image 44). No substantial mass effect or midline shift. Mild enlargement of ventricles and sulci secondary to parenchymal volume loss. Mild periventricular hypoattenuation, nonspecific but likely secondary to chronic small vessel ischemic disease. The basal cisterns are clear. Calvarium fracture along the right frontal bone with fracture line extending through the coronal suture into the left parietal bone. No additional calvarium, skull base or facial fractures. Bilateral pseudophakia. Complete opacification of the right maxillary sinus. The remainder of the paranasal sinuses are clear. Clear mastoid air cells. Impression Right frontal subarachnoid hemorrhage and probable contusion. Bilateral frontal fracture extending to the left parietal bone. Small associated epidural hemorrhagewithout mass effect. Fracture crosses the superior sagittal sinus. Recommend follow-up CT venogram to evaluate for possible venous thrombosis. 01/28/22 7:33 PM Mild interval increase in bifrontal and right temporal subarachnoid hemorrhage and right frontal contusion. Stable thin epidural hematoma at the vertex. No mass effect. Stable alignment of bilateral frontal bone and left parietal fracture, with mild comminution disc and depression of the left parietal fragments. Fracture crosses the midline along the superior sagittal sinus. Consider follow- up CT venogram. 01/29/22 1:[address] has not substantially changed. Small epidural hemorrhage of the paramedian vertex, small amount of subarachnoid change in the supratentorial compartment, and hemorrhagic contusion in the right supraorbital frontal lobe. Stable skull fracture. The head CT has not substantially changed. 01/29/22 7:54 AM Stable size of the vertex epidural hematoma. There is local mass effect causing moderate stenosis ofthe superior sagittal sinus. Stable bifrontal convexity subarachnoid hemorrhage and right frontal hemorrhagic contusion. Stable calvarial fracture. No evidence of venous sinus thrombosis. CT C-Spine/Neck: No acute fracture or traumatic subluxation of the cervical vertebra. Multilevel cervical spondylosis . There is severe neural foraminal stenosis on the right at C3-4. There is also moderate neural foraminal stenosis on the left at C5-6 and C3-4. CT T-Spine: Not done CT L-Spine: not done CT CAP: Not done Chest XR: Clear chest. Pelvis XR: Osteoarthritis. No acute findings. FAST: No Pericardial Effusion identified, No Free Intraperitoneal Fluid identified, No Pleural Effusion identified, and No Pneumothorax Identified; incidental left renal cyst Tib/fib, right XR: No fracture. Alcohol Screening (for all patients > 11 years of age) No results found for: ETOH MIRANDA: negative Alcohol Use: Yes. CAGE Screen: 1. In the past year: Have you felt you should cut down on your drinking? no 2. In the past year: Have people annoyed you by criticizing your drinking? no 3. In the past year: Have you felt bad or guilty about your drinking? no 4. In the past year: Have you had an eye senior investigator first thing in the morning to steady your nerves? no Interventions Completed: N no intervention necessary as patient does not drink as much or does not think it is a problem Next Step Patient has penetrating trauma (stab, GSW)?: No. Abbreviated Clinical Frailty Score (Screen those age 65 and older) Does the patient engage in moderate to strenuous sports or recreational activities?: Yes - CFS < 4, screening complete Consult CONSTRUCTION ASSISTANT for: CONSTRUCTION ASSISTANT consult not indicated at this time Mental Health Screening: Have you had any experience that was so frightening, horrible, or upsetting that, in the past month,you: Have had nightmares about it or thought about it when you did not want to? no Tried hard not to think about it or went out of your way to avoid situations that remind you of it? no Were constantly on guard, watchful, or easily startled? no Davidson numb or detached from others, activities, or your surroundings? no Interventions Completed: Patient declines Trauma Psych Consult Assessment : Zoran Short is a 86 y.o. male with no significant past medical history on file who was admittedafter a fall on 01/28/2022 . It is said that he was walking his dog with the sprinklers around, and he slipped on ice. +LOC. He initially was seen at [place] ED where a CT scan was done and he was found to have subarachnoid hemorrhage and skull fracture. He was transferred to [facility] for further care given his injuries. Imaging completed injuries noted below. Neurosurgery consulted- see recommendations below. On this visit, patient in bed but visiting with . Tertiary exam negative for any acute findings. No additional imaging needed at this time from red surgery Team. Patient has been eating well therefore will discontinue fluids. No cardiac events therefore will discontinue telemetry, touchedbase with neurosurgery and agreed to starting patient's therapies. Should anticipate patient to discharge in the next 24 hours. current known injuries: Right frontal subarachnoid hemorrhage and probable contusion. Bilateral frontal fracture extending to the left parietal bone. Small associated epidural hemorrhagewithout mass effect. Fracture crosses the superior sagittal sinus. Hemorrhagic contusion along the right orbital portion of the frontal lobe with mild surrounding edema. Trace subarachnoid hemorrhage along the left frontal pole Calvarium fracture along the right frontal bone with fracture line extending through the coronal suture into the left parietal bone. New findings: No new findings Incidental Findings: Mild enlargement of ventricles and sulci secondary to parenchymal volume loss. Mild periventricular hypoattenuation, nonspecific but likely secondary to chronic small vessel ischemic disease. Bilateral pseudophakia. Complete opacification of the right maxillary sinus. Plan Discontinue IV fluids Discontinue telemetry To have occupational therapy today and PT tomorrow Anticipate discharge tomorrow if cleared by PT/OT Imaging needed: No imaging needed Labs needed: Routine labs including CBC, BMP, magnesium and phosphorus. Wound care plans(s): Not applicable Suture/Rm: None Antibiotics: None Drains Present: None Ramos: Not present Lines: Peripheral DVT prophylaxis: Mechanical: SCDs and Chemical: Contraindicated Diet: Regular Activity: Up ad nikki and Up with assist C/T/L-Spine status: Cleared Weight-bearing status: As tolerated Therapy: PT, OT, and OT for cognitive screen Consulting Teams(s) Plan and/or Follow-up Recommendations: Neurosurgery: Serial Q2H neuro exams until stable HCT result, then Q4H exam CT Head venogram today Adequate pain control per primary team Seizure prophylaxis - Keppra 1g BID x7 days Normonatremia, normothermia, euglycemia Replace electrolytes as needed Hgb > 8.0, Plt > 100K, INR < 1.5 SBP < 140: PRN labetalol/hydralazine to maintain SBP goals No anticoagulants/anti-platelets Remainder of cares per the primary team Will need to follow-up with outpatient TBI clinic with HCT before appointment - ordered for you DVT prophylaxis: SCDs, VTE prophylaxis contraindicated at this time, will evaluate timing of starting DVT prophylaxis after a stable HCT. Disposition: per primary Follow-Up Tertiary Exam: Not required; patient responsive and able to participate in clinical exam. Discharge Plan: To be determined. Chucho Britt, CRACKER SPRAYER, KITCHEN FOOD SERVER, 01/29/2022 2:44 PM FACULTY NOTE I saw and evaluated the patient with the advanced practice provider on the date of the above note. Iagree with the findings and plan as outlined. Edwin Churchill MD, 02/01/2022 11:03 AM Nursing Assessment - Yohana Wright RN - 01/29/2022 8:00 AM CDT Nursing Assessment Head to Toe Head to Toe Assessment Shift Summary Shift Summary Neurologic/Cognitive Within Defined Limits Frequent Neuro Assessments have been documented in the flowsheets HEENT Assessment Within Defined Limits except for: Comments: Bruising to head from fall Cardiac Assessment Within Defined Limits except for: Gerentological Physiotherapist - remote telemetry Respiratory Within defined limits Neurovascular Within Defined Limits Gastrointestinal Within Defined Limits Genitourinary Within Defined Limits Musculoskeletal Assessment Within Defined Limits except for: Musculoskeletal Assessment: General Mobility: Generalized weakness Integumentary Assessment Within Defined Limits except for: Skin Assessment Color/Characteristics - bruised (ecchymotic) Patient Lines/Drains/Airways Status Active LDAs Name Placement date Placement time Site Days Peripheral IV 01/28/22 20 gauge Left Antecubital 01/28/22 1521 -- less than 1 Wound Occiput Left;Upper 01/28/22 2227 -- less than 1 Psychosocial Assessment Within Defined Limits except for: Psychosocial Assessment: Family Behavior: at bedside, attentive to patient, participating in care and interacting with patient Comments: and daughter at bedside Nursing Assessment - Tomer Jiang RN - 01/29/2022 12:23 AM CDT Nursing Assessment Head to Toe Head to Toe Assessment Shift Summary D: A/O x4, neuro intact, SBP in 150's, denies pain. Remains on RA, LS clear, bowel sounds active, noBM this shift. Voiding. Occipital bruising noted. A: Medication administration, assessment. Upon admission a Four Eyes Skin Inspection was completed with [place]. Skin injuries were present. Will continue to use Fadi Scale and skin bundle interventions as appropriate. R: No c/o nausea. NS infusing 100ml/hr. Pt unsteady on feet, 1 assist to bathroom. Slept most of shift. P: Continue with plan of care. Tomer Jiang, RN, 01/29/2022 12:24 AM Neurologic/Cognitive Within Defined Limits HEENT Within Defined Limits Cardiac Assessment Within Defined Limits except for: Gerentological Physiotherapist - remote telemetry Respiratory Within defined limits Neurovascular Within Defined Limits Gastrointestinal Within Defined Limits Genitourinary Within Defined Limits Musculoskeletal Within Defined Limits Integumentary Assessment Within Defined Limits except for: Skin Assessment Integrity - abrasion(s) Comments: Occipital bruise Patient Lines/Drains/Airways Status Active LDAs Name Placement date Placement time Site Days Peripheral IV 01/28/22 20 gauge Left Antecubital 01/28/22 1521 -- less than 1 Wound Occiput Left;Upper 01/28/22 2227 -- less than 1 Psychosocial Within Defined Limits ED Faculty Note - Hudson Mehta MD - 01/28/2022 9:14 PM CDT ED Faculty Attestation and Note Zoran Short : 1935 Sex: male Patient Arrival Date and Time: 01/28/2022 3:16 PM FACULTY ATTESTATION I Hudson Mehta MD, was present with resident during the history and exam. I discussed the case with the resident and agree with the findings and plan as documented in the resident's note. CRITICAL CARE Not applicable RN and ANCILLARY NOTES I have reviewed nursing and ancillary notes, and agree with protocol as initiated. PROCEDURES Not applicable MEDICAL DECISION MAKING The previous EKG reviewed and interpreted: , current labs reviewed and interpreted, previous labs reviewed and interpreted, current images reviewed and interpreted: , previous images reviewed and interpreted: , medical record reviewed and summarized: , and summary of patient course: 01/28/2022 3:16 PM, Zoran Short is a 86 y.o.male seen and evaluated in the ED, supervised by myself. No past medical history on file. BP (!) 152/71 Pulse 67 Temp 36.6 ??C (97.8 ??F) (Oral) Resp 15 Ht 1.854 m (6' 1) Wt 87.4 kg (192 lb 9.6 oz) SpO2 97% BMI 25.41 kg/m?? The patient presented to the ED for evaluation of the potentially life- threatening or limb-threatening problem of chief complaint. The patient underwent a comprehensive evaluation in the ED and their problem was modified/improved with the treatment provided. I agree with the plan outlined by the RUBBER TESTER. The patient was deemed to require hospital admission for further evaluation and care surrounding thiscondition as they were unsafe for discharge. Transfer from [facility] with [facility]h and skull fx Keppra loaded (insuff at [facility]) Repeat scan with mild worsening Trauma and neursx, admit inter care documented in this encounter Plan of Treatment Scheduled Orders Name Type Priority Associated Diagnoses Order S chedule CT HEAD NO IV CONTRAST Imaging Routine SAH (subarachnoid Expected: 02/12/2022 hemorrhage) () (Approximat e), Expires: 2022 Scheduled Referrals Name Type Priority Associated Diagnoses Order S chedule REFERRAL TO TRAUMATIC Referral Routine SAH (subarachnoid O rdered: 01/29/2022 BRAIN INJURY hemorrhage) () REFERRAL TO TRAUMATIC Referral Routine SAH (subarachnoid O rdered: 01/29/2022 BRAIN INJURY hemorrhage) () documented as of this encounter Procedures Procedure Name Priority Date/Time Associated Comments [...] procedure are in the results section. CT HEAD NO IV [...] results section. documented in this encounter Results PHOSPHORUS (01/30/2022 5:33 AM CDT) P athologist Signature Phosphorus 2.6 2.5 - 4.5 [facility] mg/dL Specimen Anatomical Collection Method Collection Time Receive d Time (Source) Location / / Volume Laterality Blood 01/30/2022 5:33 AM 5:57 CDT AM CDT Chucho Britt APRN, KITCHEN FOOD SERVER LABORATORY Performing Organization Address City/State/ZIP Code Phon e Number [facility] [place] [address] MAGNESIUM (01/30/2022 5:33 AM CDT) athologist Signature Magnesium 2.1 1.6 - 2.4 [facility] mg/dL Specimen Anatomical Collection Method Collection Time Receive d Time (Source) Location / / Volume Laterality Blood 01/30/2022 5:33 AM 5:57 CDT AM CDT Chucho Britt APRN, CNP LABORATORY Performing Organization Address City/[facility] Code Phon e Number [facility] [place] [address] (ABNORMAL) PANEL BASIC METABOLIC (BMP) (01/30/2022 5:33 AM CDT) athologist Signature Sodium 136 135 - 148 [facility] mEq/L Potassium 3.9 3.5 - 5.3 [facility] mEq/L Chloride 106 92 - 108 [facility] mEq/L CO2 24 22 - 30 [facility] mEq/L Glucose 122 (H) 70 - 100 [facility] mg/dL BUN 16 8 - 23 [facility] mg/dL Creatinine 0.97 0.70 - 1.25 [facility] mg/dL Calcium 8.2 (L) 8.8 - 10.2 [facility] mg/dL AnGap 6 (L) 8 - 16 [facility] mEq/L eGFR, High 83 >=60 [facility] ml/min/1.73 m2 Comment: Calculated using CKD-EPI equati on eGFR, Low 71 >=60 ml/min/1.73m2 [facility] Comment: Calculated using CKD-EPI equati on Specimen Anatomical Collection Method Collection Time Receive d Time (Source) Location / / Volume Laterality Blood 01/30/2022 5:33 AM 5:57 CDT AM CDT Chucho Britt APRN, CNP LABORATORY Performing Organization Address City/[facility]/ZIP Code Phon e Number [facility] [place] [address] (ABNORMAL) CBC WITH PLATELET (01/30/2022 5:33 AM CDT) P athologist Signature WBC 7.41 4.00 - [facility] 10.00 k/cmm RBC 4.05 (L) 4.60 - 6.00 [facility] m/cmm Hgb 13.1 13.1 - 17.5 [facility] g/dL Hematocrit 38.1 (L) 40.0 - 51.0 [facility] % MCV 94.1 80.0 - [facility] 100.0 fL MCH 32.3 (H) 25.0 - 32.0 [facility] pg MCHC 34.4 31.0 - 36.0 [facility] g/dL RDW 12.9 11.5 - 14.5 [facility] % Plt 158 150 - 400 [facility] k/cmm MPV 10.4 6.5 - 12.5 [facility] fL Specimen Anatomical Collection Method Collection Time Receive d Time (Source) Location / / Volume Laterality Blood 01/30/2022 5:33 AM 5:58 CDT AM CDT Chucho Britt APRN, CNP LABORATORY Performing Organization Address City/State/ZIP Code Phon e Number [facility] [place] [address] HEAD - VENOGRAM-W/IV CON (01/29/2022 8:30 [...] brain. Image data were sent to the [employer] w orkstation and postprocessed by the radiologist using [...] brain. Image data were sent to the [employer] 3D workstation a nd postprocessed by the [...] HEAD NO IV CONTRAST (01/29/2022 1:32 AM CDT) Anatomical Region Laterality Modality Skull [...] Radiologist: Piyush Santoyo [place] Resident: Andrew Jerry 01/29/2022 12:10 PM CDT [...] Andrew Jerry Edwin Churchill MD CT NEURO CT HEAD NO IV CONTRAST (01/28/2022 7:37 PM CDT) Anatomical Region Laterality Modality Skull Computed Tomography Specimen (Source) Anatomical Collection Method Collection Time Re ceived Time Location / / Volume Laterality 01/28/2022 8:11 PM CDT Impressions 01/28/2022 8:17 PM CDT Impression: 1. Mild interval increase in bifrontal a nd right temporal subarachnoid hemorrhage and right frontal contusion. Stable thin epidural hematoma at the vertex. No mass effect. 2. Stable alignment of bilateral frontal bone and left parietal fracture, with mild comminution disc and depression of the left parietal fragments. 3.Fracture crosses the midline along the superior sagittal sinus. Consider follow-up CT venogram. [facility] offers CT scanning with t he latest innovations, including personalized dose modulation, iterative and model-based reconstructions, and spectral CT, all of which work to reduce radiation d ose to as low as reasonably achievable , and afford significant reductions in contrast media dose. [place] Radiologist: Edwin Mosher 01/28/2022 8:[address] without contrast Indication: 6h repeat sah ??. Comparison: 01/28/2022 Technique: Axial thin section CT images through the brain were obtained from the base of the skull through the vertex without intravenous contrast and reviewed in brain, bone and subdural windows. Dose Total DLP = 1268.2 mGy.cm. ?? Findings: Mild increase in subarachnoid and parenchymal hemorrhage in the right frontal lobe with new small right temporal increased left frontal subarachnoid hemorrhage. Stable 3 mm epidural hematoma a t the vertex. There is no mass effect or midline shift. The ventricles and sulci appear appropriate for age. Otto-white differentiation is normal throughout both cerebral hemispheres. Unchanged alignment of bifrontal calvari al fracture crossing the midline into the left parietal bone, where the fracture is mildly comminuted and depressed x 3 mm. Chronic appearing right maxillary sinusitis. Mastoid air cells are clear. Procedure Note Edwin Mosher MD - 01/28/2022Formattin g of this note might be different from the original. Head CT without contrast Indication: 6h repeat sah . Comparison: 01/28/2022 Technique: Axial thin section CT images through the brain were obtained from the base of the skull through the vertex without intravenous contrast and reviewed in brain, bone and subdural windows. Dose Total DLP = 1268.2 mGy.cm. Findings: Mild increase in subarachnoid and parenchymal hemorrhage in the right frontal lobe with new small right temporal increased left frontal subarachnoid hemorrhage. Stable 3 mm epidural hematoma at the vertex. There is no mass effect or midline shift . The ventricles and sulci appear appropriate for age. Otto-white differentiation is normal throughout both cerebral hemispheres. Unchanged alignment of bifrontal calvari al fracture crossing the midline into the left parietal bone, where the fracture is mildly comminuted and depressed x 3 mm. Chronic appearing right maxillary sinusitis. Mastoid air cells are clear. IMPRESSION Impression: 1. Mild interval increase in bifrontal a nd right temporal subarachnoid hemorrhage and right frontal contusion. Stable thin epidural hematoma at the vertex. No mass effect. 2. Stable alignment of bilateral frontal bone and left parietal fracture, with mild comminution disc and depression of the left parietal fragments. 3.Fracture crosses the midline along the superior sagittal sinus. Consider follow-up CT venogram. [facility] offers CT scanning with t kandace latest innovations, including personalized dose modulation, iterative and model-based reconstructions, and spectral CT, all of which work to reduce radiation dose to as low as reasonably achievable, and afford signi ficant reductions in contrast media dose. [place] Radiologist: Edwin Mosher Hudson Mehta MD CT NEURO TROP 4H (01/28/2022 7:30 PM CDT) P athologist Signature 4H Trop 4 <=34 ng/L [facility] 4H Delta na Not Significant [facility] Comment: Unable to calculate delta, miss ing timed collection. Specimen Anatomical Collection Method Collection Time Receive d Time (Source) Location / / Volume Laterality Blood 01/28/2022 7:30 PM 7:41 CDT PM CDT Rudy Villa MD LABORATORY Performing Organization Address City/[facility]/ZIP Code Phon e Number [facility] [place] [address] COVID-19 SURVEILLANCE (01/28/2022 7:30 PM CDT) Patholo gist Method Time Signature COVID-19 Not Detected Not Detected [facility] Specimen (Source) Anatomical Collection Method Collection Time Re ceived Time Location / / Volume Laterality Nasopharyngeal Swab 01/28/2022 7:30 01/28 PM CDT 7:34 PM CDT Narrative [facility] - 01/28/2022 8:16 PM CDT Preferred specimen is Nasopharyngeal swab Is the patient a healthcare employee: No Is the patient a [place] ([facility]) Employee : No Rudy Villa MD LABORATORY Performing Organization Address City/[facility] Phon e Number [facility] [place] [address] XR TIB FIB RIGHT 2 V [...] Volume Laterality 01/28/2022 4:53 PM CDT Impressions [facility] CVIS EKG ORDERS - 01/28/2022 4:53 P [...] 414 ms QTC Interval 425 ms P [place] -18 QRS [place] 138 T Wave [place] -13 Procedure Note Aarti Garay MD - [...] 414 ms QTC Interval 425 ms P [place] -18 QRS [place] 138 T Wave [place] -13 Hudson Mehta MD EKG Performing Organization Address City/State/ZIP Code Phon e Number [facility] CVIS EKG ORDERS XR PELVIS AP* (01/28/2022 [...] 6:05 PM CDT Indication: ??Patient transferred from [facility] due to Trauma. ??No initial report accompanied the patient and/or Dr. ??RUDY VILLA requested an interpretation by me. Technique: ??CT scan of the cervical spi ne done on 01/28/2022 without IV contrast. ??3 mm axial, sagittal and coronal reconstructions reviewed in soft tissue and bone windows, per the local institution' s scanning protocols, which may differ f rom the [facility] trauma protocols. Findings: ?? The lateral masses [...] from the original. Indication: Patient transferred from [facility] due to Trauma. No initial report accompanied the patient and/or Dr. RUDY VILLA requested an interpretation by me. Technique: CT scan of the cervical spine done on 01/28/2022 without IV contrast. 3 mm axial, sagittal and coronal reconstructions reviewed in soft tissue and bone windows, per the local institution's scanning protocols, which may differ from the [facility] trauma protocols. Findings: The lateral masses of [...] Radiologist: Edwin Mosher Resident: Anna Beckford Narrative 01/28/2022 5:56 PM CDT Indication: ??Patient transferred from [facility] due to Trauma. ??No initial report accompanied the patient and/or Dr. ??RUDY VILLA requested an interpretation by me. Technique: ??CT scan of the head done on 01/28/2022 without IV contrast. ??3 mm axial and coronal reconstructions reviewed in soft tissue and bone windows, per the local institution's scanning protocols , which may differ from the [facility] trauma protocols. Findings: ??Subarachnoid hemorrhage parviz g [...] from the original. Indication: Patient transferred from [facility] due to Trauma. No initial report accompanied the patient and/or Dr. RUDY VILLA requested an interpretation by me. Technique: CT scan of the head done on without IV contrast. 3 mm axial and coronal reconstructions reviewed in soft tissue and bone windows, per the local institution's scanning protocols, which may differ from the [facility] trauma protocols. Findings: Subarachnoid hemorrhage along the [...] NEURO HS TROPONIN (01/28/2022 3:47 PM CDT) P athologist Signature HS Troponin I <4 <=34 ng/L [facility] Specimen Anatomical Collection Method Collection Time Receive d Time (Source) Location / / Volume Laterality Blood 01/28/2022 3:47 PM 2 4:22 CDT PM CDT Narrative [facility] - 01/28/2022 4:51 PM CDT If ordering as an add-on lab, you must c all the lab. Rudy Villa MD LABORATORY Performing Organization Address City/State/ZIP Code Phon e Number [facility] [place] [address] PRECAUTIONARY TUBE (01/28/2022 3:47 PM CDT) Patholo gist Method Time Signature Prec Tube Precautionary [facility] Blood Bank Specimen Received. Specimen Anatomical Collection Method Collection Time Receive d Time (Source) Location / / Volume Laterality Blood 01/28/2022 3:47 PM 2 3:57 CDT PM CDT Rudy Villa MD LAB TRANSFUSION SERVICES Performing Organization Address City/State/ZIP Code Phon e Number [facility] [place], [place] [id number] [place] [address] (ABNORMAL) CBC WITH PLTS/AUTO DIFF (01/28/2022 3:47 PM CDT) Analysis Performed At Patho logist Time Signature WBC 7.96 4.00 - [facility] 10.00 k/cmm RBC 4.28 (L) 4.60 - [facility] 6.00 m/cmm Hgb 13.6 13.1 - [facility] 17.5 g/dL Hematocrit 41.0 40.0 - [facility] 51.0 % MCV 95.8 80.0 - [facility] 100.0 fL MCH 31.8 25.0 - [facility] 32.0 pg MCHC 33.2 31.0 - [facility] 36.0 g/dL RDW 13.1 11.5 - [facility] 14.5 % Plt 169 150 - 400 [facility] k/cmm MPV 10.1 6.5 - 12.5 [facility] fL Automated Abs 6.58 (H) 1.70 - [facility] Neutrophil 6.50 k/cmm Comment: Preliminary ANC, Final Result t o Follow Abs Immature Granulocyte 0.03 0.00 - 0.09 k/cmm [facility] Comment: The Immature Granulocyte Absolu te count contains metamyelocytes and myelocytes. Abs Neutrophil 6.58 (H) 1.70 - 6.50 k/cmm [facility] LA B Abs Lymphocyte 0.95 0.80 - 4.00 k/cmm [facility] B Abs Monocyte 0.35 0.20 - 1.00 k/cmm [facility] Abs Eosinophil 0.03 0.00 - 0.60 k/cmm [facility] LA B Abs Basophil 0.02 0.00 - 0.20 k/cmm [facility] Specimen Anatomical Collection Method Collection Time Receive d Time (Source) Location / / Volume Laterality Blood 01/28/2022 3:47 PM 4:22 CDT PM CDT Rudy Villa MD LABORATORY Performing Organization Address City/State/ZIP Code Phon e Number [facility] [place] [address] [place] [address] (ABNORMAL) ED CHEMISTRY LABS(NA,K,CL,CO2,GLU,CREAT,CA-IONIZED,ANION GAP) (01/28/2022 3:47 PM CDT) Analysis Performed At Patho logist Time Signature Sodium 136 135 - 148 [facility] mEq/L Chloride 110 (H) 92 - 108 [facility] mEq/L AnGap 6 (L) 8 - 16 [facility] mEq/L Glucose 105 (H) 70 - 100 [facility] mg/dL ICA, Actual 3.61 (L) 4.40 - [facility] 5.20 mg/dL ICA, pH 3.95 (L) 4.40 - [facility] Corrected 5.20 mg/dL Creatinine 0.88 0.70 - [facility] 1.25 mg/dL BICARB 20 (L) 22 - 26 [facility] mEq/L eGFR, High 91 >=60 [facility] ml/min/1.7 3m2 Comment: Calculated using CKD-EPI equati on eGFR, Low 79 >=60 ml/min/1.73m2 [facility] Comment: Calculated using CKD-EPI equati on Potassium 4.0 3.5 - 5.3 mEq/L [facility] Specimen Anatomical Collection Method Collection Time Receive d Time (Source) Location / / Volume Laterality Blood 01/28/2022 3:47 PM 2 3:57 CDT PM CDT Rudy Villa MD LABORATORY Performing Organization Address City/[facility]/ZIP Code Phon e Number [facility] [place] [address] EXTRA TUBE - SST (01/28/2022 3:36 PM CDT) athologist Signature SST TUBE Stored [facility] Comment: SST tubes (Serum Separator) are stored in the lab for 3 days from the collection date. Specimen Anatomical Collection Method Collection Time Receive d Time (Source) Location / / Volume Laterality Blood 01/28/2022 3:36 PM 2 3:58 CDT PM CDT Narrative [facility] - 01/28/2022 3:58 PM CDT Ordered by ~[id number] Provider Unknown LABORATORY Performing Organization Address City/State/ZIP Code Phon e Number [facility] [place] [address] EXTRA TUBE - LIGHT GREEN (01/28/2022 3:36 PM CDT) athologist Signature LIGHT GREEN Stored [facility] TUBE Comment: Green tubes ([place] Heparin) a re stored in the lab for 3 days from the collection date. Specimen Anatomical Collection Method Collection Time Receive d Time (Source) Location / / Volume Laterality Blood 01/28/2022 3:36 PM 2 3:58 CDT PM CDT Narrative [facility] - 01/28/2022 3:58 PM CDT Ordered by ~[id number] Provider Unknown LABORATORY Performing Organization Address [facility]/ZIP Code Phon e Number [facility] [place] [address] EXTRA TUBE - DARK GREEN (01/28/2022 3:36 PM CDT) athologist Signature DARK GREEN TUBE Stored [facility] Comment: Dark Green tubes ([place] Hepar in) are stored in the lab for 1 day from the collection date. Specimen Anatomical Collection Method Collection Time Receive d Time (Source) Location / / Volume Laterality Blood 01/28/2022 3:36 PM 2 3:58 CDT PM CDT Narrative [facility] - 01/28/2022 3:58 PM CDT Ordered by ~[id number] Provider Unknown LABORATORY Performing Organization Address [facility] Phon e Number [facility] [place] [address] EXTRA TUBE - BLUE (01/28/2022 3:36 PM CDT) athologist Signature BLUE TUBE [facility] Comment: Blue top(Sodium citrate) tubes are kept for 3 days from the collection date. Specimen Anatomical Collection Method Collection Time Receive d Time (Source) Location / / Volume Laterality Blood 01/28/2022 3:36 PM 2 3:58 CDT PM CDT Narrative [facility] - 01/28/2022 3:58 PM CDT Ordered by ~[id number] Provider Unknown LABORATORY Performing Organization Address City/[facility] Phon e Number [facility] [place] [address] documented in this encounter Visit Diagnoses Diagnosis SAH (subarachnoid hemorrhage) () - Desi phyllis Subarachnoid hemorrhage SAH (subarachnoid hemorrhage) () Subarachnoid hemorrhage TBI (traumatic brain injury) Intracranial injury of other and unspeci fied nature, without mention of open intracranial wound, unspecified state of consciousness documented in this encounter Admitting Diagnoses Diagnosis SAH (subarachnoid hemorrhage) () Subarachnoid hemorrhage documented in this encounter Administered Medications Inactive Administered Medications - up to 3 most recent administrations Medication Order MAR Action Action Date Dose Rate Site acetaminophen tablet 650 mg Given 01/30/2022 8:26 AM CDT 650 mg 650 mg, Oral, Q4H PRN, Starting on Wed01/28/22 at 2052, Until Wed01/30/22 at 1728, Temp > 38.6 C, Mild Pain (Use First) calcium gluconate IVPB 2 g New Bag 01/28/2022 7:20 PM CDT 2 g 2 g, Intravenous, ONE TIME, 1 dose, On Wed01/28/22 at 1820 HI MED REC REVIEW BY PHARMACY Discharge Date: 01/30/2022, Discharge Lo cation: Home, Anticipated Discharge Time: 10 am - 2 pm, Discharge Medication Orders: DC Med Orde rs Final, Does not apply, PROTOCOL, Starting on Wed01/29/22 at 1528, Until Wed01/30/22 at 1728 famotidine (PEPCID) tablet 20 mg Given 01/30/2022 8:25 AM CDT 20 mg 20 mg, Oral, BID, First dose on Wed01/28/22 at 2055, Until Discontinued Given 01/29/2022 8:18 PM CDT 20 mg Given 01/29/2022 10:23 AM CDT 20 mg finasteride (PROSCAR) tablet 5 mg Given 01/30/2022 8:26 AM CDT 5 mg 5 mg, Oral, DAILY, First dose on Wed01/29/22 at 1010, Until Discontinued Given 01/29/2022 10:36 AM CDT 5 mg hydrALAZINE (APRESOLINE) 20 mg/mL inject ion 10 mg 10 mg, IV Push, Q1H PRN, Starting on Wed01/29/22 at 1011, Until Wed01/30/22 at 1728, SBP greater than 140 mmHg iohexol (OMNIPAQUE) 350 mg/mL Given 01/29/2022 8:30 AM CDT 75 mL Right Arm injection IV Push, RAD ONE TIME AUTO ACKNOWLEDGE, 1 dose, On Wed01/29/22 at 0835 labetalol (TRANDATE) tablet 100 mg 100 mg, Oral, Q6H PRN, Starting on Wed01/29/22 at 101 1, Until Wed01/30/22 at 1728, SBP>140 levETIRAcetam (KEPPRA) tablet 1,000 mg Given 01/30/2022 6:08 AM CDT 1,000 mg 1,000 mg, Oral, BID, 14 doses, First dose on Wed01/29/22 at 0500, Last dose on Wed02/04/22 at 1700 Given 01/29/2022 4:49 PM CDT 1,000 mg Given 01/29/2022 5:21 AM CDT 1,000 mg levETIRAcetam in NaCl (KEPPRA) 1500 New Bag 01/28/2022 4:50 PM CDT 1,500 mg mg/100 mL IVPB 1,500 mg 1,500 mg, Intravenous, ONE TIME, Administer over 15 Minutes, On Wed01/28/22 at 1625 NaCl 0.9% infusion Infusing 01/29/2022 2:00 PM CDT 100 mL/hr at 100 mL/hr, Intravenous, CONTINUOUS, Starting on Wed01/28/22 at 2055, Until Wed01/29/22 at 1430 Infusing 01/29/2022 1:00 PM CDT 100 mL/hr Infusing 01/29/2022 12:00 PM CDT 100 mL/hr polyethylene glycol 3350 (MIRALAX;GLYCOLAX) Given 01/30/2022 8:2 5 AM CDT 17 g packet 17 g 17 g, Oral, DAILY, First dose on Wed01/29/22 at 0800, Until Discontinued sennosides (SENOKOT) tablet 8.6 mg Given 01/30/2022 8:26 AM CDT 8.6 mg 8.6 mg, Oral, BID, First dose on Wed01/28/22 at 2055, Until Discontinued Given 01/29/2022 8:18 PM CDT 8.6 mg Given 01/29/2022 10:23 AM CDT 8.6 mg tamsulosin (FLOMAX) capsule 0.4 mg Given 01/30/2022 8:25 AM CDT 0.4 mg 0.4 mg, Oral, DAILY PC, First dose on Wed01/29/22 at 1010, Until Discontinued Given 01/29/2022 10:23 AM CDT 0.4 mg VTE prophylaxis contraindicated Contraindication Reason: Bleeding Risk, Does not apply, PROTOCOL, Starting on Wed01/28/22 at 2052, Until Wed01/30/22 at 1728 documented in this encounter Active and Recently Administered Medications Times are shown in CDT. Scheduled Medication Order 01/28/2022 01/29/2022 01/30/2022 calcium gluconate IVPB 2 g (COMPLETED) 1917 (Dual Sign -Off - Provider: Azael Dennis, GAURANG)1919 (New Bag - Provider: Azael Dennis, RN)1949 (Infusion completed - Provider: Tomer Jiang RN)2024 (Infusion completed - Provider: Azael Dennis RN) 2 g, Intravenous, ONE TIME, 1 dose, On Wed01/28/22 at 1820 DC MED REC REVIEW BY PHARMACY(Linked Group 1) Discharge Date: 01/30/2022, Discharge Lo cation: Home, Anticipated Discharge Time: 10 am - 2 pm, Discharge Medication Orders: DC Med Orders Final, Does not apply, PROTOCOL, Starting on Wed01/29/22 at 1528, Until Wed01/30/22 at 1728 famotidine (PEPCID) tablet 20 mg 2126 (Not Given (jonna ves Due time) - Provider: Tomer Jiang RN - Reason: NPO) 1023 (Given - Provider: Yohana Wright RN)2017 (Given - Provider: Swapna Gr RN) 0825 (Given - Provider: Josie Estrada, GAURANG) 20 mg, Oral, BID, First dose on Wed01/28/22 at 2055, Until Disc ontinued finasteride (PROSCAR) tablet 5 mg 1036 ( Given - Provider: Yohana Wright RN) 0826 (Given - Provider: Josie Estrada, GAURANG) 5 mg, Oral, DAILY, First dose on Wed01/29/22 at 1010, Until Dis continued iohexol (OMNIPAQUE) 350 mg/mL injection (COMPLETED) 0830 (Given - Provider: Colleen Charlton, RT - Comment: lot#[id number]) IV Push, RAD ONE TIME AUTO ACKNOWLEDGE, 1 dose, On Wed01/29/22 at 0835 levETIRAcetam (KEPPRA) tablet 1,000 mg 0 521 (Given - Provider: Tomer Jiang RN)1649 (Given - Provider: Yohana Wright RN) 0608 (Given - Provider: Swapna Gr, GAURANG) 1,000 mg, Oral, BID, 14 doses, First dos e on Wed01/29/22 at 0500, Last dose on Wed02/04/22 at 1700 levETIRAcetam in NaCl (KEPPRA) 1500 mg/100 mL IVPB 1,5 00 mg (COMPLETED) 1650 (New Bag - Provider: Aura Melo, RN)1710 (Infusion completed - Provider: Lorraine Wong RN) 1,500 mg, Intravenous, ONE TIME, Adminis ter over 15 Minutes, On Wed01/28/22 at 1625 polyethylene glycol 3350 (MIRALAX;GLYCOLAX) packet 17 g 0749 (Not Given (removes Due time) - Provider: Yohana Wright RN - Reason: NPO) 0825 (Given - Provider: Josie Estrada RN) 17 g, Oral, DAILY, First dose on Wed01/29/22 at 0800, Until Dis continued sennosides (SENOKOT) tablet 8.6 mg 2126 (Not Given (re moves Due time) - Provider: Tomer Jiang RN - Reason: NPO) 1023 (Given - Provider: Yohana Wright, GAURANG)2017 (Given - Provider: Swapna Gr RN) 0826 (Given - Provider: Josie Estrada, GAURANG) 8.6 mg, Oral, BID, First dose on Wed01/28/22 at 2055, Until Dis continued tamsulosin (FLOMAX) capsule 0.4 mg 1023 (Given - Provider: Yohana Wright RN) 0825 (Given - Provider: Josie Estrada, GAURANG) 0.4 mg, Oral, DAILY PC, First dose on Wed01/29/22 at 1010, Until Discontinued VTE Anti Xa Monitoring Does not apply, PROTOCOL, Starting on 01/28/22 at 205, Until Wed01/30/22 at 1728 VTE prophylaxis contraindicated(Linked Group 2) Contraindication Reason: Bleeding Risk, Does not apply, PROTOCOL, Starting on Wed01/28/22 at 205, Until Wed01/30/22 at 1728 Continuous Medication Order 01/28/2022 01/29/2022 01/30/2022 NaCl 0.9% infusion (CANCELED) 2123 (New Bag - Provider: Tomer Jiang RN) 0700 (Infusing - Provider: Yohana Wright, RN)0749 (New Bag - Provider: Yohana Wright, RN)0800 (Infusing - Provider: Yohana Wright, GAURANG)0900 (Infusing - Provider: Yohana Wright, RN)1000 (Infusing - Provider: Yohana Wright, RN) at 100 mL/hr, Intravenous, CONTINUOUS, S tarting on Wed01/28/22 at 2055, Until Wed01/29/22 at 1430 1100 (Infusing - Provider: Joe Wright, GAURANG)1200 (Infusing - Provider: Yohana Wright, GAURANG)1300 (Infusing - Provider: Yohana Wright, GAURANG)1400 (Infusing - Provider: Yohana Wright, GAURANG)1426 (Stopped - Provider: Yohana Wright RN) PRN Medication Order 01/28/2022 01/29/2022 01/30/2022 acetaminophen tablet 650 mg 825 (Given - Provider: Josie Estrada RN) 650 mg, Oral, Q4H PRN, Starting on Wed 1 at 2052, Until Wed01/30/22 at 1728, Temp > 38.6 C, Mild Pain (Use First) hydrALAZINE (APRESOLINE) 20 mg/mL injection 10 mg(Linked Group 3 ) 10 mg, IV Push, Q1H PRN, Starting on [place] 01/29/22 at 1011, Until Wed01/30/22 at 1728, SBP greater than 140 mmHg labetalol (TRANDATE) tablet 100 mg(Linked Group 3) 100 mg, Oral, Q6H PRN, Starting on Concetta 1 at 1011, Until Wed01/30/22 at 1728, SBP>140 ondansetron (ZOFRAN) tablet 4 mg 4 mg, Oral, Q6H PRN, Starting on Wed at 2052, Until Wed01/30/22 at 1728, Nausea/Vomiting (Use First), Use if patient able to tolerate oral tablet oxyCODONE (ROXICODONE) tablet 5-10 mg 5-10 mg, Oral, Q4H PRN, Starting on Wed01/28/22 at 2052, Until Wed01/30/22 at 1728, Moderate Pain (Use First) Linked Groups Order Group 1: DC MED REC REVIEW BY PHARMACYJump to med Discharge Date: 01/30/2022
Discharge Location: Home
Anticipated Discharge Time: 10 am - 2 pm
Discharge Medication Orders: DC Med Orders Final
Does not apply, PROTOCOL, Starting on [place] 01/29/22 at 1528, Until Wed01/30/22 at 1728 And Discharge Med Rec Final Review by Pharmacy (COMPLETED) Routine, Order to be placed by provider after medications have been entered for discharge and are ready for review by Pharmacist. This order can be placed multiple times if changes or additions have bee n made to medications for discharge. Cho ose the Preliminary DC Med Rec review when placing orders prior to the day of discharge. Choose Final DC Med Rec when all medication changes have been entered. If DC Med Rec needed now, please page the Pharmacist covering the patient to inform them.
Discharge Date: 01/30/2022
Discharge Location: Home
Anticipated Discharge Time: 10 am - 2 pm Group 2: VTE prophylaxis contraindicatedJump to med Contraindication Reason: Bleeding Risk<b r>Does not apply, PROTOCOL, Starting on Wed01/28/22 at 2052, Until Wed01/30/22 at 1728 And VTE - Prophylaxis Contraindication Communication (COMPLETED) Contraindication Reason: Bleeding Risk Group 3: hydrALAZINE (APRESOLINE) 20 mg/mL injection 10 mgJump to med 10 mg, IV Push, Q1H PRN, Starting on [place] 01/29/22 at 1011, Until Wed01/30/22 at 1728, SBP greater than 140 mmHg Or labetalol (TRANDATE) tablet 100 mgJump to med 100 mg, Oral, Q6H PRN, Starting on Conc[place] 1 at 1011, Until Wed01/30/22 at 1728, SBP>140 documented in this encounter Care Teams Accounts Adjustable Clerk Relationship Specialty Start Date End Date Juan Antonio Garber MD PCP - General Internal Medicine 01/28/[address] [place] [id number] documented as of this encounter
--- OUTSIDE RECORDS SUMMARY | 2022-03-04 08:24 | XMS_ITS | Encounter Summary ---
:1935 Author Organization [facility] Address [address] [place] [id number] Care Team Providers Name Role Phone Unavailable Primary Care Provider Unavailable Encounter Details Date Type Department Care Team Description 01/29/2021 Lab RST RO LMP Kim Moser, Malignant Neoplasm Of [address] [facility] P.A.-C., M.S. [place] [address] [place] [address] (HCC) [place] [address] (Wo rk) Social History Tobacco Use Types Packs/Day Years Used Date Smoking Tobacco: Never Assessed Sex Assigned at Date Recorded Not on file documented as of this encounter Plan of Treatment Not on filedocumented as of this encounter Procedures Procedure Name Priority Date/Time Associated Diagnosis Comme nts PATHOLOGY REVIEW OF Routine 11/19/2020 12:00 AM Malignant Neop lasm Results for this OUTSIDE MATERIAL CDT Of Trunk Soft Tissue pro cedure are in Primary (HCC) the results section. documented in this encounter Results Pathology Review of Outside Material (11/19/2020 12:00 AM CDT) Component Value Ref Test Analysis Performed Pathologis t Range Method Time At Signature 02/13/2021 DTL 3:24 PM CDT Participated in Kelly Radford 02/13/2021 DTL the MItzel., 3:24 PM Interpretation Ph.D.-Pathology CDT Fellow Report Andrew Henry M.D. [id number] 02/13/2021 DTL electronically 3:24 PM signed by CDT I verify that I have examined all relevant slides/materials for the specimen(s) and rendered or confirmed the diagnosis. Material Received A. [id number]: Right and mid skin chest 02/13/2021 DTL ? 18 stained slides 3:24 PM CDT Interpretation FINAL DIAGNOSIS 02/13/2021 DTL Right and mid skin chest mass, excision ([id number]; 3:24 PM 11/19/2020): Primary cutaneous leiomyosarcoma, grade 2 of 3 CDT (high-grade), with deep subcutaneous extension. Sarcoma extends to excision margins. COMMENT I have reviewed the slides representing a right/mid skin chest mass from the above patient and entirely agree with you that this is a rather unusual example of an advanced primary cutaneous leiomyosarcoma. 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 It is very unusual for primary pilar leiomyosarcomas to grow to this size and thus literature on tumors of this type is quite limited. However, it would probably be best to treat this lesion as one would a conventional high-grade leiomyosarcoma involving the skin and subcutis of identical size. I note that the subsequent reexcision ([id number]) was negative for sarcoma. Thank you very much for allowing me to review this case. With your permission, I have retained 1 slide for my teaching files. If this is not acceptable, please let me know, and I will return material under separate cover. Your remaining material is enclosed. If you have any questions, please do not hesitate to reach me at [phone]. Specimen (Source) Anatomical Collection Method Collection Time Re ceived Time Location / / Volume Laterality Varies 11/19/2020 02/11/2021 1:13 PM CDT Narrative This result has an attachment that is no t available. Kim Moser P.A.-C., M.S. 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
--- OUTSIDE RECORDS SUMMARY | 2022-03-04 08:24 | XMS_ITS | Encounter Summary ---
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 [facility] Procedures MR Chest Musculoskeletal without and with IV Contrast MR Chest without and with IV Contrast [address] [place] [address] Referral ID Status Reason Start Date Expiration Date Visits Requ ested Visits Authorized [id number] Closed 01/28/2021 01/28/2022 1 1 Outpatient (Routine) - Closed Specialty Diagnoses / Procedures Referred By Contact Refer red To Contact Radiation Oncology Kim Moser P.A.-C., [facility] M.S [address] [place] [address] Referral ID Status Reason Start Date Expiration Date Visits Requ ested Visits Authorized [id number] Closed 01/28/2021 01/28/2022 1 1 Scheduling Instructions Follow-up after MRI of the chest and pre sentation at [facility] () Reason for Visit Appointment Request (Routine) - Closed Specialty Diagnoses / Procedures Referred By Contact Refer red To Contact Radiation Oncology Diagnoses 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) Jimmy Cm M.B.B.SSurya [address] [facility], [address] [place] [address] Referral ID Status Reason Start Date Expiration Date Visits Requ ested Visits Authorized [id number] Closed 01/21/2021 01/21/2022 1 1 Encounter Details Date Type Department Care Team Description 01/28/2021 Hospital Encounter Department of Delon Espinal Neoplasm Radiation Oncology Geovany [facility] Of Trunk Soft Tissue in [address] ([facility]) [place], [place] (Primary Dx) [address] [facility] [id number] [place], [place] [phone] (Work) [phone] Social History Tobacco Use Types Packs/Day Years Used Date Smoking Tobacco: Never Assessed Sex Assigned at Date Recorded Not on file documented as of this encounter Last Filed Vital Signs Vital Sign Reading Time Taken Comments Blood Pressure 141/59 01/28/2021 10:40 AM CDT Pulse 78 01/28/2021 10:40 AM CDT Temperature 36.3 ??C (97.3 ??F) 01/28/2021 10:40 AM CDT Respiratory Rate - - Oxygen Saturation - - Inhaled Oxygen Concentration - - Weight 80.7 kg (177 lb 14.6 oz) 01/28/2021 10:40 AM CDT Height - - Body Mass Index - - documented in this encounter Medications at Time of Discharge Medication Sig Dispensed Refills Start Date End Date finasteride (PROSCAR) 5 mg Take 1 tablet by 0 11/2020 tablet mouth every morning. ibuprofen (ADVIL,MOTRIN) Take 1 tablet by 0 06/30 200 mg tablet mouth at bedtime. minocycline (DYNACIN) 50 Take 50 mg by mouth. 0 0 06/30/2016 mg tablet tamsulosin (FLOMAX) 0.4 mg Take 0.4 mg by mouth. 0 06/17/2020 24 hr capsule vitamins A,C,Z-bygo-ijszyp Take by mouth. 0 03/13 [id number],160-113-100 vmqt-er-mctt tablet,delayed release (DR/EC) documented as of this encounter Consult Notes Kim Moser P.A.-C., M.S. - 01/28/2021 10:45 AM CDT SUBJECTIVE REQUESTING PROVIDER Jimmy Cm M.B.B.S. REASON FOR CONSULT 1. 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 ([id number]) HISTORY OF PRESENT ILLNESS Mr. 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 His oncologic history is as follows: 1. 2019: The patient noted a lesion on his chest wall. He was isolating at home as his was undergoing treatment for breast cancer during the pandemic and did not seek medical attention initially. The lesion started to grow gradually. 2. June 2020: The patient contacted his primary provider for an appointment with a marketing pr intern. The first available appointment was in November 2020. 3. November 18, 2020: Dermatology consultation with Dr. Carter Vazquez. Physical examination demonstrateda flesh colored to erythematous papule measuring 3.3 x 2.5 cm with a broad base. There was no axillary lymphadenopathy. Rule out basal cell carcinoma vs. possible amelanotic melanoma vs. sarcoma. 4. November 19, 2020: Excisional biopsy of the right mid chest was performed by Dr. Vazquez. Pathology demonstrated leiomyosarcoma, 5 cm, involving dermis and subcutis. Perineural invasion was indeterminate. Lymph vascular invasion was absent. Mitotic activity 24/mm2. Tumor necrosis absent. Margins statuspositive (peripheral and deep). Ki-67 proliferation rate was greater than 50%. 5. December 10, 2020: PET-CT whole body demonstrated postsurgical changes in the skin and subcutaneoustissues of the prior median right upper anterior chest wall from the recent myoma our sarcoma excisional biopsy. The area appeared otherwise unremarkable. The remainder of the visualized skin and subcutaneous tissues appeared unremarkable. There was no evidence of other areas of tumor involvement or metastatic disease. 6. December 24, 2020: Wide local excision and bilateral axillary sentinel lymph node biopsy was performed by Dr. Man. Pathology of the right upper chest skin and soft tissue demonstrated changes consistent with prior surgery, negative for residual malignancy. One right axillary sentinel lymph node was benign (0/1). Two left axillary sentinel lymph nodes were benign (0/2). 7January 17, 2021: Medical Oncology consultation with Dr. Jimmy Cm at [facility] who discussed that the patient's disease was stage II. They discussed adjuvant treatment recommendations including observation or adjuvant radiation to the chest wall. Referral to Radiation Oncology in [place]. Follow-up in 3 months for surveillance with imaging studies. INTERVAL HISTORY The patient was seen and examined today with Dr. Espinal. The patient reports doing well overall. He reports that his energy is so-so. He does take a rest/napin the afternoon. He reports that his skin has healed well following wide local excision. He denies any pain. He denies numbness, tingling, or swelling. He has a basal cell carcinoma of the left posterior ear that has not been treated yet. He denies any other new or concerning skin lesions. The patient denies a history of prior radiation therapy, connective tissue disorders, or inflammatory bowel disease. His ECOG performance status is 0. COVID-19 Vaccine: Yes, Pfizer 2-dose series and booster REVIEW OF SYSTEMS Review of systems was negative except as documented above. PATIENT REPORTED SYMPTOM SCREEN FATIGUE (Scale: 0 = no fatigue; 10 = worst fatigue you can imagine): 0 PAIN (Scale: 0 = no pain; 10 = worst pain you can imagine): 0 OVERALL QUALITY OF LIFE (Scale: 0 = as bad as can be; 10 = as good as can be): 8 PAST MEDICAL HISTORY 1. Benign prostatic hypertrophy 2. Urinary retention 3. Erectile dysfunction 4. Basal cell carcinoma of the nose, right ear, and left ear 5. Rosacea 6. Tubular adenoma of colon 7. Leiomyosarcoma PAST SURGICAL HISTORY 1. Skin excisions FAMILY HISTORY Father had colon cancer. SOCIAL HISTORY He lives in [place], [place]. He is to his , Lashonda. He has 3 children. He has 5 grandchildren. 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 He is a former smoker of 1 pack/day for 4 years, quit in 1969. He has 7 alcoholic drinks per week. OBJECTIVE BP 141/59 (BP Location: Right arm, Patient Position: Sitting, Cuff Size: Regular) Pulse 78 Temp 36.3 ??C (Temporal) Wt 80.7 kg PHYSICAL EXAM General: Patient is alert and oriented in no apparent distress. 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 We reviewed his oncologic history, as detailed above. We discussed current treatment options following wide local excision and bilateral axillary sentinel lymph node biopsy, including observation and radiation therapy. We discussed that radiation therapy would be delivered in 30 fractions. I discussed the logistics as well as the acute and chronic side effects of radiation treatment in detail. The acute side effects are common and include radiation dermatitis with possible peeling and/orblistering of the skin, chest wall pain, mild cough, radiation esophagitis, and fatigue. Long-term side effects could include chest wall tightness, radiation pneumonitis, and a very small risk of secondary malignancy. We reviewed Dr. Espinal's recommendations for next steps including proceeding with a MRI of the chest and presentation of his case at [facility]. After these are completed, we would then see the patient back in a follow-up visit here to finalize his plan of care. The patient was provided with a written summary of recommendations. His questions were answered to his verbalized satisfaction. The patient will have follow-up with Dr. Vazquez regarding treatment options for the basal cell carcinoma on his posterior left ear. Dr. Espinal then met with the patient today to discuss his recommendations, please see his attestation for additional details. I have ordered for a MRI of the chest with IV contrast as well as a follow-up visit here. The patient was provided with our contact information and asked to contact us with questions or concerns. He verbally expressed his understanding of the plan. EDUCATION Ready to learn, no apparent learning barriers were identified; learning preferences include listening. Explained diagnosis and treatment plan; patient expressed understanding of the content. CONSENT Discussed the risks, benefits, alternatives, and the necessity of other members of the healthcare team participating in the procedure. All questions answered and consent given. PRIMARY PROVIDER Dr. Romano Reister I personally spent 50 minutes in care of the patient today. Time includes both non face to face and face to face patient care. Signed by: Kim Moser P.A.-C., M.S. 01/28/2021 11:35 AM CDT [facility] [address] [place], [place] [id number] Associated attestation - Delon Espinal M.D. - 01/28/2021 5:37 PM CDT I saw and evaluated the patient and participated in the wetzel portions of the service. I reviewed the documentation of Kim Moser P.A.-C. and agree with the findings and plan. Mr. 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 We are asked by Dr. Cm to evaluate the patient for adjuvant radiotherapy. His oncologic history is well detailed in Ms. Mercadof's note. In brief, he had a small lesion on his right upper anterior chest that grew over the course of last year. A margin positive excisional biopsy was performed by Drs. Vazquez on November 19, 2020 with pathology confirming leiomyosarcoma measuring 5.0 cm with involvement of the dermis and subcutis with high mitotic activity of 24/mm2 with no necrosis or lymph vascular invasion, positive deep and peripheral margins, and a Ki-67 of greater than 50%. A PET/CT scan on December 10, [address] Man performed a widelocal excision and bilateral axillary sentinel lymph node biopsies that showed no residual disease on December 24, 2020. He saw Dr. Cm on January 17, 2021 who recommended consideration of either observation or radiotherapy. The patient reports that he is currently feeling well. He has had no chest pain or discomfort, no shortness of breath, and recovered quickly from his surgery without taking any opioid analgesics. He has had no prior radiotherapy and is quite fit and active. His ECOG performance status is 0. OBJECTIVE PHYSICAL EXAM General: Patient is awake, alert, and oriented to person, place, and time. No apparent distress. He looks younger than his stated age. Photos were taken of the patient's chest with his permission. We will attempt to obtain photos of the lesion prior to excisional biopsy from Dr. Vazquez. ENT: Pupils equal, round, and reactive to light. Sclerae anicteric. Oral cavity inspection reveals moist mucous membranes and no visible lesions. Neck: Supple. Lymph: No palpable cervical, supraclavicular, infraclavicular, or axillary adenopathy. Spine: No tenderness to palpation or fist percussion. Lungs: Clear to auscultation bilaterally. Chest: There is a well-healed incisional scar on his medial right anterior chest measuring 13.5 cm running from the suprasternal notch down almost to the xiphoid process. No palpable nodularity. Heart: Regular rate and rhythm. Normal S1 and S2. No murmurs. Abdomen: Normal active bowel sounds are present. Extremities: No edema. Range of motion is full and normal. DIAGNOSTICS I reviewed the pathology reports from the patient's biopsy and subsequent surgery. I reviewed the PET/CT imaging with him. 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 We reviewed the NCCN guidelines together. As Dr. Cm is pointed out, options include observation or adjuvant radiotherapy. The latter would be to a dose of 60 Gy in 30 fractions utilizing intensity modulated radiotherapy. I reviewed the logistics as well as the acute and chronic side effects of radiation treatment in detail. For a complete listing of these, please see Ms. Mercadof's note. I discussed his case with one of my sarcoma subspecialty colleagues in [place]. I recommend that we obtain a baseline MRI scan of the patient's chest. I will present his case at [facility] either on January 30 or February 06. I will see the patient back next week to go over the results of the MRI scan, the tumor board recommendations, and to finalize a plan of care. The patient's questions were answered to his verbalized satisfaction. I provided him with a written summary my recommendations. He verbalized satisfaction with this plan. My thanks to Magda Gloria, Taylor, and Shirlene for the opportunity to participate this patient's care. I spent a total of 30 minutes with the patient, 25 minutes of which was spent counseling and coordinating care. Signed by: Delon Espinal M.D. 01/28/2021 5:37 PM CDT [facility] [place] documented in this encounter Miscellaneous Notes Addendum Note - Maliha Calhoun - 01/28/2021 10:45 AM CDT Encounter addended by: Maliha Calhoun on: 01/29/2021 9:58 AM Actions taken: Letter saved documented in this encounter Plan of Treatment Scheduled Referrals Name Type Priority Associated Diagnoses Order [facility] Radiation Oncology Outpatient Referral Routine Ex pected: office visit 02/04/2021 (clinic) (Approximate), Expires: 01/28/2022 documented as of this encounter Results MR Chest Musculoskeletal without and with IV Contrast (01/30/2021 3:43 PM CDT) Anatomical Region Laterality Modality Chest, Musculoskeletal RST LOS, Musculoskeletal ARZ Magnetic Resonance LOS, Muskuloskeletal FLA LOS Specimen (Source) Anatomical Collection Method Collection Time Re ceived Time Location / / Volume Laterality 01/30/2021 2:08 PM CDT Impressions 01/30/2021 3:41 PM CDT Postoperative changes of excision of a leiomyosarcoma from the anterior right chest wall. No evidence for residual or recurrent disease. Narrative 01/30/2021 3:41 PM CDT EXAM: ??MR CHEST MUSCULOSKELETAL WITHOUT AND WITH IV CONTRAST COMPARISON: ??Outside [facility] PET/CT 021 FINDINGS: ?? MRI of the right chest wall without and with IV contrast performed at [address] [facility]. Skin markers were placed at the margins of the surgical scar. Exam is slightly limited secondary to patient respiratory motion despite multiple attempts and optimal imaging techniques. Postoperative changes of excision of a l eiomyosarcoma from the anterior right chest wall (12/24/2020). Mild subcutaneo us reticulated T2 hyperintensity in the operative bed, compatible with postopera tive change. No discrete nodular signal abnormality or enhancement to suggest re sidual or recurrent disease. Calcified hilar lymph nodes. 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 Remainder unremarkable. Procedure Note Edwin Brennan M.D. - 01/30/2021Format ting of this note might be different from the original. EXAM: MR CHEST MUSCULOSKELETAL WITHOUT A ND WITH IV CONTRAST COMPARISON: Outside [facility] PET/CT FINDINGS: MRI of the right chest wall without and with IV contrast performed at [address] [facility]. Skin markers were placed at the margins of the surgical scar. Exam is slightly limited secondary to patient respiratory motion despite multiple attempts and optimal imaging techniques. Postoperative changes of excision of a l eiomyosarcoma from the anterior right chest wall (12/24/2020). Mild subcutaneo us reticulated T2 hyperintensity in the operative bed, compatible with postopera tive change. No discrete nodular signal abnormality or enhancement to suggest re sidual or recurrent disease. Calcified hilar lymph nodes. 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 Remainder unremarkable. IMPRESSION: Postoperative changes of excision of a l eiomyosarcoma from the anterior right chest wall. No evidence for residual or recurrent disease. Delon Espinal M.D. 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
--- OUTSIDE RECORDS SUMMARY | 2022-03-04 08:24 | XMS_ITS | Encounter Summary ---
:1935 Author Organization [facility] Address [address] [place] [address] Care Team Providers Name Role Phone Unavailable Primary Care Provider Unavailable Encounter Details Date Type Department Care Team Description 07/31/2021 Clinical Communication Department of Nolvia Carrillo Radiation Oncology in [address] [place] [id number] Social History Tobacco Use Types Packs/Day Years Used Date Smoking Tobacco: Never Assessed Sex Assigned at Date Recorded Not on file documented as of this encounter Plan of Treatment Not on filedocumented as of this encounter Visit Diagnoses Not on filedocumented in this encounter
--- OUTSIDE RECORDS SUMMARY | 2022-03-04 08:24 | XMS_ITS | Encounter Summary ---
:1935 Author Organization [facility] Address [address] [place] [address] Care Team Providers Name Role Phone Unavailable Primary Care Provider Unavailable Encounter Details Date Type Department Care Team Description 01/28/2021 Ancillary Procedure Department of Oncology Social History Tobacco Use Types Packs/Day Years Used Date Smoking Tobacco: Never Assessed Sex Assigned at Date Recorded Not on file documented as of this encounter Plan of Treatment Not on filedocumented as of this encounter Procedures Procedure Name Priority Date/Time Associated Diagnosis Comme nts ONCOLOGY IMAGE EXAM Routine 01/28/2021 11:30 AM R esults for this CDT procedure are i n the results section. documented in this encounter Results Chest 521-Oncology Image Exam (01/28/2021 11:30 AM CDT) Specimen (Source) Anatomical Collection Method Collection Time Re ceived Time Location / / Volume Laterality 01/28/2021 11:30 AM CDT Narrative [facility] - 01/28/2021 11:49 AM CDT This order has been created and auto-finalized to support the import of images acquired without order. The clini winnie documentation to support these images can be found on the encounter jerson t produced images. Provider Not In System IMG NON RAD IMAGING PROCEDUR ES Performing Organization Address City/State/ZIP Code Phon e Number [facility] NA documented in this encounter Visit Diagnoses Not on filedocumented in this encounter
--- OUTSIDE RECORDS SUMMARY | 2022-03-04 08:24 | XMS_ITS | Encounter Summary ---
:1935 Author Organization [facility] Address [address] [place] [address] Care Team Providers Name Role Phone Unavailable Primary Care Provider Unavailable Encounter Details Date Type Department Care Team Description 01/29/2021 Orders Only Department of Radiation Kim Moser Mal ignant Neoplasm Of Oncology in [place], PLivan, M.S. Trunk Soft Tissue [place] [address] [facility] Primary (HCC) (Primary [address] [place], [place] Dx) [place] [id number] Social History Tobacco Use Types Packs/Day Years Used Date Smoking Tobacco: Never Assessed Sex Assigned at Date Recorded Not on file documented as of this encounter Plan of Treatment Not on filedocumented as of this encounter Results Pathology Review of Outside Material (12/24/2020 9:20 AM CDT) Component Value Ref Test Analysis Performed Pathologis t Range Method Time At Signature 02/05/2021 DTL 1:25 PM CDT Participated in Ana María Covarrubias M.D. 02/05/2021 DTL the -Pathology Fellow 1:25 PM Interpretation CDT Report Jayce Abdi M.D. 02/05/2021 DTL electronically 1:25 PM signed by CDT I verify that I have examined all relevant slides/materials for the specimen(s) and rendered or confirmed the diagnosis. Material A. [id number]: Chest, right upper chest, right and left 02/05/2021 DTL Received axillary sentinel lypmh node 1:25 PM ? 54 stained slides CDT Interpretation FINAL DIAGNOSIS 02/05/2021 DTL Right upper chest skin and lymph nodes ([id number]; 1:25 PM 12/24/2020): CDT A. Skin and soft tissue, right, upper chest, wide excision: Scar tissue and giant cell reactive changes consistent with prior surgery site. No residual malignancy identified (See comment) B. Lymph node, right axillary, sentinel, excision: One lymph node, negative for tumor (0/1) C. Lymph node, left axillary, sentinel, excision: Two lymph nodes, negative for tumor (0/2) COMMENT: Desmin and smooth muscle actin immunohistochemical stains were performed on paraffin sections blocks [id number] at the referring institution ([facility]) and shows no residual leiomyosarcoma. Specimen Anatomical Collection Method Collection Time Receive d Time (Source) Location / / Volume Laterality Varies 12/24/2020 9:20 AM CDT 10:38 AM CDT Narrative This result has an attachment that is no t available. Kim Moser P.A.-C., M.S. LAB SURG PATH ORDERABLES Performing Organization Address City/State/ZIP Code Phon e Number [facility] - [address] [place] [address] [place] [address] Laboratories[address] Pathology Review of Outside Material (11/19/2020 12:00 AM CDT) Component Value Ref Test Analysis Performed Pathologis t Range Method Time At Signature 02/13/2021 DTL 3:24 PM CDT Participated in Kelly Radford 02/13/2021 DT the Marycarmen., 3:24 PM Interpretation Ph.D.-Pathology CDT Fellow Report Andrew Henry M.D. [id number] 02/13/2021 DTL electronically 3:24 PM signed by CDT I verify that I have examined all relevant slides/materials for the specimen(s) and rendered or confirmed the diagnosis. Material Received A. [id number]: Right and mid skin chest 02/13/2021 DTL ? 18 stained slides 3:24 PM CDT Interpretation FINAL DIAGNOSIS 02/13/2021 DTL Right and mid skin chest mass, excision ([id number]; 3:24 PM 11/19/2020): Primary cutaneous leiomyosarcoma, grade [...] size. I note that the subsequent reexcision ([id number]) was negative for sarcoma. Thank you very much for allowing me to review this case. With your permission, I have retained 1 slide for my teaching files. If this is not acceptable, please let me know, and I will return material under separate cover. Your remaining material is enclosed. If you have any questions, please do not hesitate to reach me at [phone]. Specimen (Source) Anatomical Collection Method Collection Time Re ceived Time Location / / Volume Laterality Varies 11/19/2020 02/11/2021 1:13 PM CDT Narrative This result has an attachment that is no t available. Kim Moser P.A.-C., M.S. 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
--- OUTSIDE RECORDS SUMMARY | 2022-03-04 08:24 | XMS_ITS | Encounter Summary ---
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 [facility] Procedures MR Chest Musculoskeletal without and with IV Contrast MR Chest without and with IV Contrast [address] [place], [place] [address] Referral ID Status Reason Start Date Expiration Date Visits Requ ested Visits Authorized [id number] Closed 01/28/2021 01/28/2022 1 1 Encounter Details Date Type Department Care Team Description 01/30/2021 Hospital Encounter Department of Delon Espinal Neoplasm Radiology, Albert Bolton M.D. Of Trunk Soft Tissue Building, in [address] [facility] Primary (HCC) [place], [place] [address] [facility] [address] [place], [place] [phone] (Work) [phone] Social History Tobacco Use Types Packs/Day Years Used Date Smoking Tobacco: Never Assessed Sex Assigned at Date Recorded Not on file documented as of this encounter Medications at Time of Discharge [...] mouth. 0 06/17/2020 24 hr capsule vitamins A,C,M-qxsn-wnflzv Take by mouth. 0 03/13 7,160-113-100 hyqm-ef-bbpf tablet,delayed release (DR/EC) documented as of this encounter Plan of Treatment Not on filedocumented as of this encounter Procedures Procedure Name Priority Date/Time Associated Comments Diagnosis MR CHEST RAD - Routine 01/30/2021 3:43 Malignant Results for MUSCULOSKELETAL (most inpatients PM CDT Neoplasm Of this pro cedure WITHOUT AND WITH IV and all Trunk Soft are in t he CONTRAST outpatients) Tissue Primary results (HCC) section. documented in this encounter Results MR Chest Musculoskeletal without [...] evidence for residual or recurrent disease. 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 documented in this encounter
--- OUTSIDE RECORDS SUMMARY | 2022-03-04 08:24 | XMS_ITS | Encounter Summary ---
:1935 Author Organization [facility] Address [address] [place] [address] Care Team Providers Name Role Phone Unavailable Primary Care Provider Unavailable Encounter Details Date Type Department Care Team Description 01/29/2021 Lab RST RO LMP Kim Moser, Malignant Neoplasm Of [address] [facility] P.A.-C., M.S. [place] [address] [place] [address] (HCC) [place] [phone] (Wo rk) Social History Tobacco Use Types Packs/Day Years Used Date Smoking Tobacco: Never Assessed Sex Assigned at Date Recorded Not on file documented as of this encounter Plan of Treatment Not on filedocumented as of this encounter Procedures Procedure Name Priority Date/Time Associated Diagnosis Comme nts PATHOLOGY REVIEW OF Routine 12/24/2020 9:20 AM Malignant Neopl asm Results for this OUTSIDE MATERIAL CDT Of [...] rendered or confirmed the diagnosis. Material A. [id number]: Chest, right upper chest, right and left 02/05/2021 DTL Received axillary sentinel lypmh node 1:25 PM ? 54 stained slides CDT Interpretation FINAL DIAGNOSIS 02/05/2021 DTL Right upper chest skin and lymph nodes ([id number]; 1:25 PM 12/24/2020): CDT A. Skin and [...] sections blocks A12-15 at the referring institution ([facility]) and shows no residual leiomyosarcoma. Specimen Anatomical Collection Method Collection Time Receive d Time (Source) Location / / Volume Laterality Varies 12/24/2020 9:20 AM CDT 10:38 AM CDT Narrative This result has an attachment that is no t available. Kim Moser P.A.-C., M.S. 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
--- OUTSIDE RECORDS SUMMARY | 2022-03-04 08:24 | XMS_ITS | Encounter Summary ---
:1935 Author Organization [facility] Address [address] [place] [address] Care Team Providers Name Role Phone Unavailable Primary Care Provider Unavailable Reason for Referral Outpatient (Routine) - Closed Specialty Diagnoses / Procedures Referred By Contact Refer red To Contact Radiation Oncology [facility] [address] [phone] Referral ID Status Reason Start Date Expiration Date Visits Requ ested Visits Authorized [id number] Closed 07/15/2021 07/15/2022 1 1 Reason for Visit Outpatient (Routine) - Closed Specialty Diagnoses / Procedures Referred By Contact Refer red To Contact Radiation Oncology [facility]inal M .D. [facility] [address] [address] Referral ID Status Reason Start Date Expiration Date Visits Requ ested Visits Authorized [id number] Closed 07/15/2021 07/15/2022 1 1 Encounter Details Date Type Department Care Team Description 10/09/2021 Hospital Encounter Department of Delon Espinal Neoplasm Of Trunk Soft Tissue Primary (HCC) (Primary Dx); Radiation Oncology Geovany Bolton Nicotine Dependence in [address] [facility] [address] [place], [place] [phone] (Work) [phone] Social History Tobacco Use Types Packs/Day Years Used Date Smoking Tobacco: Never Assessed Sex Assigned at Date Recorded Not on file documented as of this encounter Last Filed Vital Signs Vital Sign Reading Time Taken Comments Blood Pressure 130/64 10/09/2021 10:54 AM CDT Pulse 64 10/09/2021 10:54 AM CDT Temperature 36.2 ??C (97.1 ??F) 10/09/2021 10:54 AM CDT Respiratory Rate - - Oxygen Saturation - - Inhaled Oxygen Concentration - - Weight 82 kg (180 lb 12.4 oz) 10/09/2021 10:54 AM CDT Height - - Body Mass [...] mouth. 0 06/17/2020 24 hr capsule vitamins A,C,P-ntax-kmdjrp Take by mouth. 0 03/13 7,160-113-100 fxnj-xp-wbav tablet,delayed release (/EC) documented as of this encounter Progress Notes Kim Moser P.A.-C., M.S. - 10/09/2021 11:00 AM CDT SUBJECTIVE DIAGNOSIS 1. 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 ([id number]) HISTORY OF PRESENT ILLNESS Mr. 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 Observation has been recommended. His oncologic history is as follows: 2019: ??The patient noted a lesion on his chest wall. ??He was isolating at home as his was undergoing treatment for breast cancer during the COVID-19 pandemic and did not seek medical attention initially. ??The lesion started to grow gradually. 2. June 2020: ??The patient contacted his primary provider for an appointment with a medical records administrator.??The first available appointment was in November 2020. 3.??November 18, 2020: ??Dermatology consultation with Dr. Carter Vazquez. ??Physical examination demonstrated a flesh colored to erythematous papule measuring 3.3 x 2.5 cm with a broad base. ??There was noaxillary lymphadenopathy. ??Rule out basal cell carcinoma vs. possible amelanotic melanoma vs. sarcoma. 4.??November 19, 2020: ??Excisional biopsy of the right mid chest was performed by Dr. Vazquez. ??Pathology demonstrated leiomyosarcoma, 5 cm, involving dermis and subcutis. ??Perineural invasion was indeterminate. ??Lymph vascular invasion was absent. ??Mitotic activity 24/mm2. ??Tumor necrosis absent. ??Margins status positive (peripheral and deep). ??Ki-67 proliferation rate was greater than 50%. 5.??December 10, 2020: ??PET/CT whole body demonstrated postsurgical changes in the skin and subcutaneous tissues of the prior median right upper anterior chest wall from the recent myoma our sarcoma excisional biopsy. ??The area appeared otherwise unremarkable. ??The remainder of the visualized skin and subcutaneous tissues appeared unremarkable. ??There was no evidence of other areas of tumor involvement or metastatic disease. 6.??December 24, 2020: ??Wide local excision and bilateral axillary sentinel lymph node biopsy was performed by Dr. Man. ??Pathology of the right upper chest skin and soft tissue demonstrated changes consistent with prior surgery, negative for residual malignancy. ??One right axillary sentinel lymph node was benign (0/1). ??Two left axillary sentinel lymph nodes were benign (0/2). 7. January 17, 2021: ??Medical Oncology consultation with Dr. Jimmy Cm at [facility] who discussed that the patient's disease was stage II. ??They discussed adjuvant treatment recommendations including observation or adjuvant radiation to the chest wall. ??Referral to Radiation Oncology in [place]. ??Follow-up in 3 months for surveillance with imaging studies. 8. February 13, 2021: The patient's case was presented at [facility] Sarcoma Tumor Board and consensus was not to proceed with radiation therapy. 9. April 08, 2021: CT scan of the chest, abdomen, and pelvis revealed small stable lung nodules bilaterally. Postoperative changes were seen in the right anterior chest wall just to the right of themidline with no enlarged lymph nodes. Marked enlargement of the prostate gland was again noted. 10. April 15, 2021: Follow-up visit with Dr. Cm who plan to see the patient again in [address] imaging. 11. June 2021: Follow-up visit with Dr. Man. Per the patient, he recommended no further follow-up with him. 12. September 26, 2021: CT scan of the chest demonstrated postop changes to the right anterior chest wallwithout evidence of recurrence. No adenopathy. 8 mm lingular nodule. 3 mm pleural-based right middlelobe nodule. INTERVAL HISTORY The patient was seen and examined today with Dr. Espinal. The patient reports doing well overall. He rates his fatigue as 1/10 in severity. He denies any new palpable lumps. He denies any pain. He denies shortness of breath or cough. He denies any other new or specific concerns today. REVIEW OF SYSTEMS Review of systems was negative except as documented above. PATIENT REPORTED SYMPTOM SCREEN FATIGUE (Scale: 0 = no fatigue; 10 = worst fatigue you can imagine): 1 PAIN (Scale: 0 = no pain; 10 = worst pain you can imagine): 0 OVERALL QUALITY OF LIFE (Scale: 0 = as bad as can be; 10 = as good as can be): 8 OBJECTIVE BP 130/64 (BP Location: Left arm, Patient Position: Sitting, Cuff Size: Regular) Pulse 64 Temp 36.2 ??C (Temporal) Wt 82 kg PHYSICAL EXAM General: Patient is alert and oriented in no apparent distress. Chest: Well-healed surgical scar on the anterior medial right chest wall. No palpable nodularity along the scar. Lymph: No palpable cervical, supraclavicular, infraclavicular, or axillary adenopathy. 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 We reviewed his CT chest scan that demonstrated no evidence of recurrence or adenopathy. The patient is continuing to follow with Dr. Vazquez and reports that he will have a visit with him again later this summer. He is also being followed by Dr. Cm with his next plannedvisit and imaging in April 2022. Since the patient is being closely followed by his other providers, we will not schedule a return visit here. He will contact us with questions or concerns. He verbally expressed his understanding of the plan. EDUCATION Ready to learn, no apparent learning barriers were identified; learning preferences include listening. Explained diagnosis and treatment plan; patient expressed understanding of the content. I personally spent 15 minutes in care of the patient today. Time includes both non face to face and face to face patient care. Signed by: Kim Moser P.A.-C., M.S. 10/09/2021 11:21 AM CDT [facility] [address] Associated attestation - Delon Espinal M.D. - 10/09/2021 5:44 PM CDT I saw and evaluated the patient and participated in the wetzel portions of the service. I reviewed the documentation of Kim Moser P.A.-C. and agree with the findings and plan. The patient appears well onexam. He is doing well now approximately 9 months out from his wide local excision. His chest CT scan is negative. He is following closely with Dr. Vazquez and also with Dr. Cm who plans to see him in April. I will step back from his ongoing surveillance and leave this to Dr. Cm. I am happy to seehim at any time with questions or concerns. The patient verbalized satisfaction with this plan. Signed by: Delon Espinal M.D. 10/09/21 5:44 PM CDT [facility] Radiation Therapy [facility] documented in this encounter Miscellaneous Notes Addendum Note - Vira Adam - 10/09/2021 11:00 AM CDT Encounter addended by: Vira Adam on: 10/10/2021 9:09 AM Actions taken: Actions taken from a BestPractice Advisory, Visit diagnoses modified, Letter saved documented in this encounter Plan of Treatment Scheduled Referrals Name Type Priority Associated Order Schedule Diagnoses Radiation Oncology Outpatient Referral Routine On ce for 1 office visit Occurrences sta rting (clinic) 10/09/2021 unti l 10/09/2021 documented as of this encounter Visit Diagnoses Diagnosis 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
--- OUTSIDE RECORDS SUMMARY | 2022-03-04 08:24 | XMS_ITS | Encounter Summary ---
:1935 Author Organization [facility] Address [address] [place] [address] Care Team Providers Name Role Phone Unavailable Primary Care Provider Unavailable Reason for Referral Outpatient (Routine) - Closed Specialty Diagnoses / Procedures Referred By Contact Refer red To Contact Radiation Oncology Delon Espinal M .D. 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 [facility] Procedures CT Chest with IV Contrast [address] [place] [address] Referral ID Status Reason Start Date Expiration Date Visits V isits Requested Authorized [id number] Pending 07/15/2021 07/15/2022 1 1 Review Outpatient (Routine) - Closed Specialty Diagnoses / Procedures Referred By Contact Refer red To Contact Radiation Oncology Kim Moser P.A.-C., [facility] [address] [place] [address] Referral ID Status Reason Start Date Expiration Date Visits Requ ested Visits Authorized [id number] Closed 02/14/2021 02/14/2022 1 1 Scheduling Instructions Please get recent imaging (March 2021 ) and Dr. Cm office notes (April 2021) prior to the visit. Reason for Visit Outpatient (Routine) - Closed Specialty Diagnoses / Procedures Referred By Contact Refer red To Contact Radiation Oncology Kim Moser P.A.-C., [facility] [address] [place] [address] Referral ID Status Reason Start Date Expiration Date Visits Requ ested Visits Authorized [id number] Closed 02/14/2021 02/14/2022 1 1 Encounter Details Date Type Department Care Team Description 07/15/2021 Hospital Encounter Department of Delon Espinal Neoplasm Radiation Oncology Geovany Bolton Of Trunk Soft Tissue in [place] [address] [address] [facility] Primary (HCC) [place], [place] (Primary Dx) [address] [facility] [address] [place], [place] [phone] [address] (Work) [phone] Social History Tobacco Use Types Packs/Day Years Used Date Smoking Tobacco: Never Assessed Sex Assigned at Date Recorded Not on file documented as of this encounter Last Filed Vital Signs Vital Sign [place] Time Taken Comments Blood Pressure - - Pulse - - Temperature 36.2 ??C (97.1 ??F) 07/15/2021 10:58 AM CDT Respiratory Rate - - Oxygen Saturation - - Inhaled Oxygen Concentration - - Weight 80.4 kg (177 lb 4 oz) 07/15/2021 10:58 AM CDT Height - - Body Mass [...] by mouth. 0 0 06/30/2016 mg tablet vitamins A,C,I-evtk-moecsc Take by mouth. 0 03/13 7,160-113-100 flqi-ez-jlxi tablet,delayed release (DR/EC) tamsulosin (FLOMAX) 0.4 mg Take 0.4 mg by mouth. 0 06/17/2020 24 hr capsule documented as of this encounter Progress Notes Delon Espinal M.D. - 07/15/2021 11:00 AM CDT SUBJECTIVE DIAGNOSIS 1. 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 Observation has been recommended. His oncologic history is as follows: 1. 2019: The patient noted a lesion on his chest wall. He was isolating at home as his was undergoing treatment for breast cancer during the COVID-19 pandemic and did not seek medical attention initially. The lesion started to grow gradually. 2. June 2020: The patient contacted his primary provider for an appointment with a field education director. The first available appointment was in November [...] greater than 50%. 5. December 10, 2020: PET/CT whole body demonstrated postsurgical changes in the [...] were benign (0/2). 7. January 17, 2021: Medical Oncology consultation with Dr. Jimmy Cm at [facility] who discussed that the patient's disease was stage II. They discussed adjuvant treatment recommendations including observation or adjuvant radiation to the chest wall. Referral to Radiation Oncology in [place]. Follow-up in 3 months for surveillance with imaging studies. 8. February 13, 2021: The patient's case was presented at [facility] and consensus was not [...] he recommended no further follow-up with him. INTERVAL HISTORY The patient reports doing well overall. He denies any chest pain, any visible or palpable lumps or bumps in his chest, any shortness of breath, cough, or weight loss. He has a follow-up with Dr. Vazquez next Wednesday and with Dr. Green in August. His ECOG performance status is 0. REVIEW OF SYSTEMS Review of systems was negative except as documented above. PATIENT REPORTED SYMPTOM SCREEN FATIGUE (Scale: 0 = no fatigue; 10 = worst fatigue you can imagine): 1 ?? PAIN (Scale: 0 = no pain; 10 = worst pain you can imagine): 0 ?? OVERALL QUALITY OF LIFE (Scale: 0 = as bad as can be; 10 = as good as can be): 9 OBJECTIVE Temp 36.2 ??C (Temporal) Wt 80.4 kg PHYSICAL EXAM General: Patient is awake, alert, and oriented to person, place, and time. No apparent distress. ENT: Pupils equal, round, and reactive to light with changes of cataract extraction bilaterally. Sclerae anicteric. Oral cavity inspection reveals moist mucous membranes and no visible lesions. Neck: Supple. Lymph: No palpable cervical, supraclavicular, infraclavicular, or axillary adenopathy. Chest: There is a well-healed surgical scar the anterior medial right chest wall. No palpable nodularity or masses associated with this. Spine: No tenderness to palpation or fist percussion. Lungs: Clear to auscultation bilaterally. Heart: Regular rate and rhythm. Normal S1 and S2. No murmurs. Extremities: No edema. 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 He has no clinical evidence of recurrence and no radiographic evidence of recurrence on his CT scan from March.He sees Dr. Vazquez next week. I will plan to see him in late September [facility] [place] [facility]. I recommended monthly self exam and discussed the technique an worrisome findings that would require prompt medical attention. Patient verbalized understanding of such. He also verbalized satisfaction with this plan. EDUCATION Ready to learn, no apparent learning barriers were identified; learning preferences include listening. Explained diagnosis and treatment plan; patient expressed understanding of the content. I personally spent 20 minutes in care of the patient today. Time includes both non face to face and face to face patient care. Signed by: Delon Espinal M.D. 07/15/2021 11:43 AM CDT [facility] [address] [place], [place] [id number] documented in this encounter Miscellaneous Notes Addendum Note - Thuy Brewer C.NAntwan - 07/15/2021 11:00 AM CDT Encounter addended by: Thuy Brewer C.NAntwan on: 07/15/2021 1:08 PM Actions taken: Letter saved documented in this encounter Plan of Treatment Scheduled Orders Name Type Priority Associated Diagnoses Order S chedule CT Chest with IV Imaging RAD - Routine (most Malignant Neoplas m Expected: Contrast inpatients and all Of Trunk Soft Tissue 0 10/06/2021 outpatients) Primary (HCC) (Approximate), Expires: 10/14/2022 Scheduled Referrals Name Type Priority Associated Order Schedule Diagnoses Radiation Oncology Outpatient Referral Routine On ce for 1 office visit Occurrences sta rting (clinic) 07/15/2021 unti l 07/15/2021 Radiation Oncology Outpatient Referral Routine Ex pected: 10/08/2021 office visit (Approximate), (clinic) Expires: 2022 documented as of this encounter Visit Diagnoses Diagnosis 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
--- OUTSIDE RECORDS SUMMARY | 2022-03-04 08:24 | XMS_ITS | Clinical Summary ---
:1935 Author Organization [employer] [facility] [employer] [facility] [place] [address] Care Team Providers Name Role Phone Juan Antonio Garber MD Primary Care Provider Allergies Active Allergy Reactions Severity Noted Date Comments Caffeine Intolerance-Can't Take 06/30/2016 Jitte ry; diarrhea Chlorpheniramine-Phenyl Other - Describe In 09/13/2017 Post nasal drip propan Comment Field Medications Medication Sig Dispensed Refills Start Date End Date Status minocycline Take 1 tablet by 0 06/30/2016 Active (MINOCIN) 50 mg mouth once daily. tablet For rosacea ibuprofen (ADVIL; Take 1 tablet by 0 06/30/2016 Active MOTRIN) 200 mg mouth once daily. tablet At bedtime medication order BARD urological 10 Device 1 12/20/2017 Active composerIndications: catherter. 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 Ref # [id number] vitamins Take by mouth. 0 03/13/2019 Acti ve A,C,J-scxa-cdnyge (ICAPS AREDS) 7,160-113-100 mypq-aw-qlxd TbEC ACETAMINOPHEN ORAL Take by mouth. 0 Active HYDROcodone-acetamin Take 1-2 Tablets by 25 Tablet 0 1 Active ophen (NORCO) 5-325 mouth every 4 hours mg per if needed for Pain. tabletIndications: Max acetaminophen Cutaneous dose: 4000 mg in 24 leiomyosarcoma (HC) hrs. 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 alcohol) Alcohol Habits Answer Date Recorded How often do you have a drink Not asked containing alcohol? How many drinks containing alcohol do Not asked you have on a typical day when you are drinking? How often do you have six or more Not asked drinks on one occasion? Comment: 1 Martini before dinner each 09/13/2017 night. Sex Assigned at Date Recorded Not on file Obstetrics History Last Filed Vital Signs Vital Sign [place] Time Taken Comments Blood Pressure 130/64 12/24/2020 11:00 AM CDT Pulse 80 12/24/2020 11:00 AM CDT Temperature 36.5 ??C (97.7 ??F) 12/24/2020 11:00 AM CDT Respiratory Rate 16 12/24/2020 11:00 AM CDT Oxygen Saturation 97% 12/24/2020 11:00 AM CDT Inhaled Oxygen Concentration - - Weight 80.3 kg (177 lb 1.6 oz) 12/24/2020 8:10 AM CDT Height 182.9 cm (6') 12/24/2020 8:10 AM CDT Body Mass Index 24.02 12/24/2020 8:10 AM CDT Plan of Treatment Health Maintenance Due Date Last Done Comments Tdap 1946 Depression screening for age 12+ 1949 BMI (ht and wt on same day) for 08/24/1955 age 18+ Tetanus booster 1957 Zoster (shingles) series for age 0508/24/1987 50+ (1 of 2) Medicare Wellness for age 65+ 2002 Pneumococcal series for age 65+ (1 2002 - PCV) COVID-19 vaccine series (5 - 10/28/2021 09/02/2021, 021, Booster for Pfizer series) 06/15/2020, Additiona l history exists Influenza for age 65+ 12/11/2021 Results Not on filefrom Last 3 Months Insurance Payer Benefit Plan / Subscriber ID Effective Dates Phone Addre ss Type Group MEDICARE PART A MEDICARE PART A [id number] 2002-Present ATTN: CLAIMS - HB USE ONLY HB ONLY [address] [place] [address] UCARE MR [facility] MEDICARE [id number] 2019-Present [address] [place] [address] [phone] y [address] (Home) [place] [address] Advance Directives Documents on File Type Date Recorded Patient Funeral Prearrangement Counselor Explanati on Healthcare Directive 10/02/2016 10/02/2016 Latest Code Status on File Code Status Date Activated Date Inactivated Comments Full Code 12/24/2020 8:05 AM 12/24/2020 1:12 PM Code Status Discussion: Not Discussed Care Teams Actionscript Developer Relationship Specialty Start Date End Date Juan Antonio aGrber MD PCP - General Internal Medicine 06/24/161999 [facility] [place] [address]
--- OUTSIDE RECORDS SUMMARY | 2022-03-04 08:24 | XMS_ITS | Encounter Summary ---
:1935 Author Organization [facility] Address [address] [place] [address] Care Team Providers Name Role Phone Unavailable [...] Comme nts ONCOLOGY IMAGE EXAM Routine 01/28/2021 12:30 PM R esults for this CDT procedure are i n the results section. documented in this encounter Results Chest 521-Oncology Image Exam (01/28/2021 12:30 PM CDT) Specimen (Source) Anatomical Location Collection Method / Collectio n Time Received Time / Laterality Volume Narrative IIMS - 01/30/2021 9:33 AM CDT This order has been created [...]
--- OUTSIDE RECORDS SUMMARY | 2022-03-04 08:24 | XMS_ITS | Clinical Summary ---
:1935 Author Organization [facility] Address [address] [place] [address] Care Team Providers Name Role Phone Unavailable Primary Care Provider Unavailable Source Comments Patient records contain information from all sites at [facility]. For routine questions regarding patient records, call [phone] during business hours, M-F 8:00 AM - 5:00 PM Central Time. Record requests for emergency care only can be directed to [phone] at any time.[facility] Allergies Active Allergy Reactions Severity Noted Date Comments Caffeine GI intolerance 06/30/2016 Collin; ellen izquierdo Chlorpheniramine-Phenylpro Other (see comments) 2017 Post nasal drip arnold Medications Medication Sig Dispensed Refills Start Date End Date Status minocycline (DYNACIN) Take 50 mg by 0 06/30/2016 Active 50 mg tablet mouth. tamsulosin (FLOMAX) 0.4 Take 0.4 mg by 0 06/17/2020 Active mg 24 hr capsule mouth. finasteride (PROSCAR) 5 Take 1 tablet by 0 1 Active mg tablet mouth every morning. vitamins Take by mouth. 0 03/13/2019 Acti ve A,C,R-vblj-vvvnoh 7,160-113-100 meid-ey-jjmz tablet,delayed release (DR/EC) ibuprofen Take 1 tablet by 0 06/30/2016 Ac tive (ADVIL,MOTRIN) 200 mg mouth at bedtime. tablet Active Problems Problem Noted Date Malignant Neoplasm Of Trunk Soft Tissue Primary 2020 Cancer Staging: Pathologic stage from : Stage II (pT1, pN0, cM0, FNCLCC histologic grade: G2) - Unsigned Social History Tobacco Use Types Packs/Day Years Used Date Smoking Tobacco: Never Assessed Sex Assigned at Date Recorded Not on file Last Filed Vital Signs Vital Sign [place] [...] - - Body Mass Index - - Plan of Treatment Health Maintenance Due Date Last Done Comments Depression Screening (Annual 04/12/2021 PHQ-2) Fall Risk Screen (Annual) 04/12/2021 COVID-19 Vaccine (5 - Booster for 10/28/2021 09/02/2021, , Pfizer series) 06/15/2020, Additional history exists DTaP,Tdap,and Td Vaccines (3 - Td 04/17/2031 04/17/2021, or Tdap) Pneumococcal vaccine (65+ years) Completed 08/28/2014, Zoster Vaccines Completed 09/07/2018, 05/30/2018, 10/13/2011 Influenza Vaccine Completed 01/12/2022, 12/31/2020, 12/20/2019, Additional history exists Insurance Payer Benefit Plan / Subscriber ID Effective Dates Phone Addre ss Type Group [facility] FOR [id number] 2019-Present [phone] [address] [place] [address] [phone] [place] [address] (Home) [place] [address]
--- OUTSIDE RECORDS SUMMARY | 2022-03-04 08:24 | XMS_ITS | Encounter Summary ---
:1935 Author Organization [facility] Address [address] [place] [address] Care Team Providers Name Role Phone Unavailable Primary Care Provider Unavailable Reason for Referral Outpatient (Routine) - Closed Specialty Diagnoses / Procedures Referred By Contact Refer red To Contact Radiation Oncology Kim Moser P.A.-C., [facility] [address] [place] [address] Referral ID Status Reason Start Date Expiration Date Visits Requ ested Visits Authorized [id number] Closed 02/14/2021 02/14/2022 1 1 Scheduling Instructions Please get recent imaging (March 2021 ) and Dr. Cm office notes (April 2021) prior to the visit. Outpatient (Routine) - Closed Specialty Diagnoses / Procedures Referred By Contact Refer red To Contact Radiation Oncology Kim Moser P.A.-C., [facility] [address] [place] [address] Referral ID Status Reason Start Date Expiration Date Visits Requ ested Visits Authorized [id number] Closed 01/28/2021 01/28/2022 1 1 Scheduling Instructions Follow-up after MRI of the chest and pre sentation at [facility] () Reason for Visit Outpatient (Routine) - Closed Specialty Diagnoses / Procedures Referred By Contact Refer red To Contact Radiation Oncology Kim Moser P.A.-C., [facility] [address] [place] [address] Referral ID Status Reason Start Date Expiration Date Visits Requ ested Visits Authorized [id number] Closed 01/28/2021 01/28/2022 1 1 Encounter Details Date Type Department Care Team Description 02/14/2021 Hospital Encounter Department of Nena Whiteside Neoplasm Radiation Oncology Geovany Cooper Of Trunk Soft Tissue in [place] [address] [address] [facility] Primary (HCC) [place], [place] (Primary Dx) [address] [facility] [address] [place], [place] [phone] [address] (Work) [phone] Social History Tobacco Use Types Packs/Day Years [...] mouth. 0 06/17/2020 24 hr capsule vitamins A,C,B-uqda-qvqxnp Take by mouth. 0 03/13 7,160-113-100 datd-in-qxeb tablet,delayed release (/EC) documented as of this encounter Progress Notes Kim Moser P.A.-C., M.S. - 02/14/2021 3:00 PM CDT SUBJECTIVE DIAGNOSIS 1. 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 ([id number]) HISTORY OF PRESENT ILLNESS Mr. 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 His oncologic history is as follows: 1. 2019: The patient noted a lesion on his chest wall. He was isolating at home as his was undergoing treatment for breast cancer during the COVID-19 pandemic and did not seek medical attention initially. The lesion started to grow gradually. 2. June 2020: The patient contacted his primary provider for an appointment with a reach truck operator. The first available appointment was in November [...] Oncology consultation with Dr. Jimmy Cm at [facility] who discussed that the patient's disease was stage II. They discussed adjuvant treatment recommendations including observation or adjuvant radiation to the chest wall. Referral to Radiation Oncology in [place]. Follow-up in 3 months for surveillance with imaging studies. 8. February 13, 2021: The patient's case was presented at [facility] and consensus was not to proceed with radiation therapy. INTERVAL HISTORY The patient reports doing well overall. He denies any new concerns since our consultation. REVIEW OF SYSTEMS Review of systems was negative except as documented above. OBJECTIVE There were no vitals taken for this visit. 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 I explained that the consensus was to not proceed with radiation therapy at this time. The patient was agreeable to this recommendation. We discussed the need for ongoing monitoring. I reviewed the recommendation for clinical exam every [address] scan of the chest every 6 months. The patient is already scheduled for imaging at the end of March 2021 and a follow-up visit with Dr. Cm onApril 15, 2021. I explained that Dr. Espinal was attempting to connect with Dr. Cm to discuss the patient's case, but they hadn't been able to speak yet. I will review this with Dr. Espinal to make sure he is fine with how things are scheduled and to discuss scheduling follow-up here. I will follow-up with the patient after I talk further with Dr. Espinal. Mr. Oropeza was appreciative of the phone call today. He will contact us with questions or concerns. He verbally expressed his understanding of the plan. EDUCATION Ready to learn, no apparent learning barriers were identified; learning preferences include listening. Explained diagnosis and treatment plan; patient expressed understanding of the content. I personally spent 10 minutes in care of the patient today. Time includes both non face to face and face to face patient care. Signed by: Kim Moser P.A.-C., M.S. 02/14/2021 3:11 PM CDT [facility] [address] [place], [place] [address] ADDENDUM: I talked to Dr. Espinal and he was fine with the imaging and appointment with Dr. Cm that are currently scheduled. We will schedule a return visit here in July 2021. documented in this encounter Miscellaneous Notes Addendum Note - Kim Moser P.A.-C., M.S. - 02/14/2021 3:00 PM CDT Encounter addended by: Kim Moser P.A.-C., M.S. 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
[2022-03-04 13:55] LABS: Albumin* 4.3 g/dL (3.3-5.0)
[2022-03-04 13:56] LABS: Chloride* 106 mmol/L (96-114); Potassium* 3.9 mmol/L (3.6-5.1); Sodium* 142 mmol/L (135-149)
[2022-03-04 13:58] LABS: Aspartate Amino Transferase* 26 U/L (12-35); Bilirubin Total* 0.9 mg/dL (0.1-1.5); Carbon Dioxide* 29 mmol/L (20-32); Cholesterol* 191 mg/dL (90-199); Estimated Glomerular Filt Rate 74 ml/min; Total Protein* 6.9 g/dL (6.0-8.3)
[2022-03-04 13:59] LABS: Alanine Aminotransferase* 21 U/L (4-50); Alkaline Phosphatase* 59 U/L (40-150); Blood Urea Nitrogen* 22 mg/dL (7-30); Calcium* 8.6 mg/dL (8.4-10.6); Glucose* 96 mg/dL (60-115); HDL Cholesterol* 51 mg/dL (>=40); LDL Cholesterol Calculated 127 mg/dL (<100); Triglycerides* 64 mg/dL (40-149)
[2022-03-04 21:59] LABS: PSA Screen* 3.07 ng/mL (0.10-4.00)
== END 2022-03-04 08:19 | disposition home or self-care (01) ==
PROVIDERS: PCP Internal Medicine; Visit Provider Internal Medicine
DX: Z13.6 Encounter for screening for cardiovascular disorders (principal); Z12.5 Encounter for screening for malignant neoplasm of prostate
CPT/HCPCS: 80053; 80061; 84153

== ENCOUNTER 2022-10-14 08:03 | Outpatient (CLI) | payer MEDICARE, SELFPAY | END 2022-10-14 08:04 | disposition home or self-care (01) | PROVIDERS: PCP Internal Medicine; Visit Provider Internal Medicine | DX: Z13.6 Encounter for screening for cardiovascular disorders (principal); Z12.5 Encounter for screening for malignant neoplasm of prostate; Z13.9 Encounter for screening, unspecified | CPT/HCPCS: 80053; 80061; 84153 ==

== ENCOUNTER 2023-04-26 08:30 | Outpatient (CLI) | payer MEDICARE, SELFPAY ==
--- OUTSIDE RECORDS SUMMARY | 2023-04-26 08:36 | XMS_ITS | Clinical Summary ---
Author Name Unknown Organization [facility] Address [place], [place] [address] Care Team Providers Care Design Cell Engineer Name Role Phone Juan Antonio Garber MD Primary Care Provider Allergies Active Allergy Reactions Criticality Noted Date Comments Caffeine Intolerance-Can't Take 06/30/2016 Jittery; diarrhea Chlorpheniramine-Phen ylpropan Other - Describe In Comment Field 09/13/2017 Post nasal drip Medications Medication Sig Dispensed Refills Start Date End Date Status minocycline (MINOCIN) 50 mg tablet Take 1 tablet by mouth once daily. For rosacea 0 06/30/2016 Active ibuprofen (ADVIL; MOTRIN) 200 mg tablet Take 1 tablet by mouth once daily. At bedtime 0 06/30/2016 Active medication order composerIndications: Benign prostatic hyperplasia with urinary retention DRUMRIGHT urological catherter. 14 Fr Urological Catheter Tiemann Model Coude Tip. Ref # [id number] Device 1 12/20/2017 Active vitamins A,C,P-vkcv-dutvga (ICAPS AREDS) 7,160-113-100 rizx-an-hluh TbEC Take by mouth. 0 03/13/2019 Act torito ACETAMINOPHEN ORAL Take by mouth. 0 Ac tive HYDROcodone-acetamin ophen (NORCO) 5-325 mg per tabletIndications:Cu taneous leiomyosarcoma (HC) Take 1-2 Tablets by mouth every 4 hours if needed for Pain. Max acetaminophen dose: 4000 mg in 24 hrs. 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 Sex and Gender Information Value Date Recorded Sex Assigned at Not on file Gender Identity Not on file Sexual Orientation Not on file Obstetrics History Last Filed Vital Signs Vital Sign Reading Time Taken Comments Blood Pressure 130/64 12/24/2020 11:00 AM CDT Pulse 80 12/24/2020 11:00 AM CDT Temperature 36.5 ??C (97.7 ??F) 12/24/2020 11:00 AM C DT Respiratory Rate 16 12/24/2020 11:00 AM CDT Oxygen Saturation 97% 12/24/2020 11:00 AM CDT Inhaled Oxygen Concentration - - Weight 80.3 kg (177 lb 1.6 oz) 12/24/2020 8:10 A M CDT Height 182.9 cm (6') 12/24/2020 8:10 AM CDT Body Mass Index 24.02 12/24/2020 8:10 AM CDT Plan of Treatment Health Maintenance Due Date Last Done Comments Tdap 1948 Depression screening for age 12+ 1949 BMI (ht and wt on same day) for age 18+ 08/24/1955 Tetanus booster 1957 Zoster (shingles) series for age 50+ (1 of 2) 08/24/1987 Medicare Wellness for age 65+ 2002 Pneumococcal series for age 65+ (1 of 1 - PCV) 2002 COVID-19 vaccine series ( season) 2022 09/02/2021, 01/21/2021, 06/15/2020, Additional history exists Influenza for age 65+ 12/11/2022 Advance Directives Documents on File Type Date Recorded Patient Spar Cap Beveler Expl anation Healthcare Directive 10/02/2016 017 Latest Code Status on File Code Status Date Activated Date Inactivated Comments Full Code 12/24/2020 8:05 AM 12/24/2020 1:12 PM Question Answer Comments Code Status Discussion: Not Discussed Care Teams Design Cell Engineer Relationship Specialty Start Date End Date Juan Antonio Garber MD [address] [facility] [place] [address] PCP - General Internal Medicine 06/24/16
--- NOTE | 2023-04-26 09:00 | CRLHL7_ITS ---
For Patients: As a result of the 21st Century Cures Act, medical imaging exams and procedure reports are released immediately into your electronic medical record. You may view this report before your referring provider. If you have questions, please contact your health care provider. INDICATION: Cutaneous leiomyosarcoma TECHNIQUE: Volumetric helical scanning of the chest, abdomen and pelvis was performed with 89 cc of Isovue 370 contrast material IV. Coronal and sagittal reconstructions were obtained. COMPARISON: None. FINDINGS: CHEST: On image 39 of series 3, a noncalcified 2 mm left upper lobe nodule is demonstrated and on image 75, two noncalcified 2 mm left lower lobe nodules are noted. Several likely benign perifissural nodules are demonstrated bilaterally. No infiltrate, airway abnormality or pleural effusion is demonstrated. No axillary, mediastinal or hilar adenopathy is apparent. The heart is normal in size. Calcified coronary arterial plaque is demonstrated. ABDOMEN/PELVIS: The liver is normal in size and shape. On image 153 of series 2, a 1 cm focus of contrast enhancement in segment 8 is noted and suspected represent a flash-filling hemangioma. A 7 mm cyst is demonstrated in the segment 2 on image 149. The liver is otherwise unremarkable. The bile ducts are within normal limits. No lymphadenopathy is evident. No free fluid is demonstrated. The spleen, adrenal glands and pancreas are negative. Renal parenchymal cysts are demonstrated bilaterally. The bowel is negative. The prostate is markedly enlarged. No lytic or blastic bone lesion is identified. IMPRESSION: 1. No convincing evidence of metastatic disease. 2. Noncalcified 2 mm nodules in the left upper and lower lobes as well as several likely benign perifissural pulmonary nodules bilaterally. 3. Apparent flash-filling 1 cm hepatic hemangioma and 7 mm hepatic cyst. 4. Renal cysts bilaterally. 5. Marked prostate enlargement. Please note that all CT scans at this facility use dose modulation, iterative reconstruction, and/or weight-based dosing when appropriate to reduce radiation dose to as low as reasonably achievable. Dictated by Rafal Olivares MD @ 04/26/2023 3:28:25 PM (Electronically Signed)
[2023-04-26 10:45] LABS: Creatinine* 1.1 mg/dL (0.5-1.5); Estimated Glomerular Filt Rate 66 ml/min
== END 2023-04-26 08:31 | disposition home or self-care (01) ==
LOC: CT 08:32
PROVIDERS: PCP Internal Medicine; Visit Provider Internal Medicine
DX: N40.0 Benign prostatic hyperplasia without lower urinary tract symptoms (principal); C49.3 Malignant neoplasm of connective and soft tissue of thorax; R91.8 Other nonspecific abnormal finding of lung field; N28.1 Cyst of kidney, acquired; K76.89 Other specified diseases of liver
CPT/HCPCS: 36415; 71260; 74177; 82565; Q9967

== ENCOUNTER 2023-10-28 08:33 | Outpatient (CLI) | payer MEDICARE, SELFPAY ==
--- OUTSIDE RECORDS SUMMARY | 2023-10-28 08:36 | XMS_ITS | Clinical Summary ---
Author Organization [facility] Address [place], [place] [address] Care Team Providers Care Planishing Press Operator Name Role Phone Juan Antonio Garber MD Primary Care Provider [phone] Allergies Active Allergy Reactions Criticality Noted Date [...] composerIndications: Benign prostatic hyperplasia with urinary retention ACCOMAC urological catherter. 14 Fr Urological Catheter Tiemann Model Coude Tip. Ref # [id number] 10 Device 1 12/20/2017 Active vitamins A,C,J-xvno-abmwpp (ICAPS AREDS) 7,160-113-100 urid-wa-wziu TbEC Take by mouth. 0 03/13/2019 Act torito ACETAMINOPHEN ORAL Take by mouth. Ac tive HYDROcodone-acetamin ophen (NORCO) 5-325 mg per tabletIndications:Cu taneous leiomyosarcoma (HC) Take 1-2 Tablets by mouth every 4 hours if needed for Pain. Max acetaminophen dose: 4000 mg in 24 hrs. 25 Tablet 12/24/2020 Active tamsulosin (FLOMAX) 0.4 mg capsuleIndications:B enign prostatic hyperplasia with urinary retention TAKE 1 CAPSULE BY MOUTH EVERY DAY AFTER A MEAL 90 Capsule 06/15/2021 Active finasteride (PROSCAR) 5 mg tabletIndications:Be nign prostatic hyperplasia with urinary retention TAKE 1 TABLET BY MOUTH EVERY MORNING 90 Tablet 06/15/2021 Active Active Problems Problem Noted Date [...] Additional history exists Influenza for age 65+ 12/12/2023 Advance Directives Documents on File Type Date Recorded Patient Photographer Finish Expl anation Healthcare Directive 10/02/2016 017 * Full Code (Latest Code Status on File) Date Activated Date Inactivated Comments 12/24/2020 8:05 AM 12/24/2020 1:12 PM Question Answer Comments Code Status Discussion: Not Discussed Care Teams Planishing Press Operator Relationship Specialty Start Date End Date Juan Antonio Garber MD [address] [facility] [place] [address] PCP - General Internal Medicine 06/24/16
== END 2023-10-28 08:34 | disposition home or self-care (01) ==
PROVIDERS: PCP Internal Medicine; Visit Provider Internal Medicine
DX: Z13.220 Encounter for screening for lipoid disorders (principal); Z13.228 Encounter for screening for other metabolic disorders; Z12.5 Encounter for screening for malignant neoplasm of prostate
CPT/HCPCS: 80053; 80061; G0103

== ENCOUNTER 2024-04-28 14:07 | Outpatient (CLI) | payer MEDICARE, SELFPAY ==
[2024-04-28 14:41] LABS: Estimated Glomerular Filt Rate 73 ml/min
--- NOTE | 2024-04-28 15:00 | CRLHL7_ITS ---
For Patients: As a result of the Century Cures Act, medical imaging exams and procedure reports are released immediately into your electronic medical record. You may view this report before your referring provider. If you have questions, please contact your health care provider. INDICATION: Enlarged prostate, history of cutaneous leiomyosarcoma. COMPARISON: CT 04/26/2023 TECHNIQUE: CT chest, abdomen, and pelvis with contrast. Multiplanar axial, coronal, and sagittal reformats are included. MIP images to improve detection of pulmonary nodules are included. Intravenous contrast: 102 mL Isovue 370. FINDINGS: CHEST Airway: Normal tracheobronchial tree. Lungs: Good lung volumes. Calcified granulomas. Subpleural nodule in the lingula is unchanged. No new or worrisome pulmonary nodules or masses. No consolidations. Normal appearance of the pulmonary interstitium. Pleura: No pleural effusion. No pneumothorax. Lymph nodes: Coarsely calcified subcarinal lymph node consistent with old healed granulomatous infection. No worrisome or enlarged thoracic lymph nodes.. Mediastinum: No pneumomediastinum. No mass. Heart and great vessels: No pericardial effusion. Normal cardiac chamber size. Scattered atherosclerotic plaques. No aortic aneurysm. Normal caliber main pulmonary artery. Chest wall: Normal. No masses. ABDOMEN AND PELVIS Liver: Unchanged liver cysts and flash filling hemangioma. No new or worrisome liver lesions. Gallbladder and bile ducts: Normal gallbladder. No bile duct dilation. Pancreas: Normal. Spleen: Calcified splenic granulomas. Adrenal glands: Normal. Kidneys: Normal parenchyma. Bilateral renal cysts. No solid renal mass. No calculi. No urinary tract dilation. Urinary bladder: Mildly thick walled urinary bladder probably reflects chronic outflow obstruction. Pelvis: Enlarged heterogeneous prostate. Prostate malignancy is not evaluated with CT. Vessels: Atherosclerotic plaques, few. No aortic aneurysm. Widely patent mesenteric vessels. Bowel: No dilated or inflamed bowel. Normal appendix. Moderate stool burden. Lymph nodes: No adenopathy. Peritoneum: No ascites. Abdominal wall: Fat containing umbilical hernia. Fat containing right inguinal hernia. No abdominal wall masses. BONES: No fractures. No focal bone lesions. IMPRESSION: 1. No metastatic disease seen in the chest, abdomen, or pelvis. 2. Enlarged heterogeneous prostate. Prostate malignancy is not evaluated with CT. Please note that all CT scans at this facility use dose modulation, iterative reconstruction, and/or weight-based dosing when appropriate to reduce radiation dose to as low as reasonably achievable. Dictated by Hattie Tayo,MD @ 05/01/2024 10:32:01 AM (Electronically Signed)
== END 2024-04-28 14:08 | disposition home or self-care (01) ==
LOC: CT 14:08
PROVIDERS: PCP Internal Medicine; Visit Provider Internal Medicine
DX: C49.3 Malignant neoplasm of connective and soft tissue of thorax (principal); N40.0 Benign prostatic hyperplasia without lower urinary tract symptoms
CPT/HCPCS: 36415; 71260; 74177; 82565; Q9967

== ENCOUNTER 2025-01-11 08:48 | Outpatient (CLI) | payer MEDICARE, SELFPAY | END 2025-01-11 08:49 | disposition home or self-care (01) | PROVIDERS: PCP Internal Medicine; Visit Provider Internal Medicine | DX: Z13.9 Encounter for screening, unspecified (principal); R33.9 Retention of urine, unspecified; Z12.5 Encounter for screening for malignant neoplasm of prostate; Z13.6 Encounter for screening for cardiovascular disorders | CPT/HCPCS: 80053; 80061; G0103 ==